=== PATIENT | male | born 1990 | race Caucasian/White ===

== ENCOUNTER → 2019-10-07 07:36 | Outpatient (BNVA) | payer MEDICAID, SELFPAY | PROVIDERS: Family Provider Nurse Practitioner Family; PCP Nurse Practitioner Family; Visit Provider Nurse Practitioner | DX: F43.12 Post-traumatic stress disorder, chronic (principal); G71.11 Myotonic muscular dystrophy; Q99.2 Fragile X chromosome; F70 Mild intellectual disabilities; F79 Unspecified intellectual disabilities; E55.9 Vitamin D deficiency, unspecified | CPT/HCPCS: 69210; 80053; 80061; 81000; 82306; 85025; 99213 ==

== ENCOUNTER → 2020-03-17 07:24 | Outpatient (BNVA) | payer MEDICAID, SELFPAY | PROVIDERS: Family Provider Nurse Practitioner Family; PCP Nurse Practitioner Family; Visit Provider Psychiatry & Neurology Psychiatry | DX: F43.12 Post-traumatic stress disorder, chronic (principal); F90.9 Attention-deficit hyperactivity disorder, unspecified type; F79 Unspecified intellectual disabilities; Q99.2 Fragile X chromosome | CPT/HCPCS: 99213 ==

== ENCOUNTER → 2020-08-03 07:39 | Outpatient (BNVA) | payer MEDICAID, SELFPAY | PROVIDERS: Family Provider Nurse Practitioner Family; PCP Nurse Practitioner Family; Visit Provider Nurse Practitioner | DX: F43.12 Post-traumatic stress disorder, chronic (principal); F70 Mild intellectual disabilities; F90.9 Attention-deficit hyperactivity disorder, unspecified type; Z79.899 Other long term (current) drug therapy | CPT/HCPCS: 99214 ==

== ENCOUNTER → 2020-09-26 10:55 | Outpatient (BNVA) | payer MEDICAID, SELFPAY | PROVIDERS: Family Provider Nurse Practitioner Family; PCP Nurse Practitioner; Visit Provider Nurse Practitioner | DX: J18.9 Pneumonia, unspecified organism (principal) | CPT/HCPCS: 71046 ==

== ENCOUNTER 2020-09-26 12:48 | Inpatient (IN) | payer MEDICAID, SELFPAY ==
[2020-09-26] VITALS (96 sets, daily range): BP systolic 102–134; BP diastolic 66–87; PULSE 88–132; RESP 16–38; TEMP 37.6–38; O2SAT 93–100; BMI 21.6
--- NOTE | 2020-09-26 12:55 | ECG_ITS ---
[facility] Test Date: 2020-09-26 Pat Name: Williams Dior Department: Room: Gender: Male Stamper Blocker: : 1990 Requested By: Dano Savage Order Number: [id number] Lionel MD: Konstantin Roblero M.D. Measurements Intervals [place] Rate: 122 P: 68 OR: 182 QRS: -48 QRSD: 130 T: 63 QT: 315 QTc: 449 Interpretive Statements SINUS TACHYCARDIA POSSIBLE RIGHT VENTRICULAR CONDUCTION DELAY [RSR (QR) IN V1/V2] LEFT ANTERIOR FASCICULAR BLOCK [QRS AXIS <= -45, QR IN I, RS IN II] ST ELEVATION CONSISTENT WITH INJURY, PERICARDITIS, OR EARLY REPOLARIZATION [ST ELEVATION W/O NORMALLY INFLECTED T WAVE] MODERATE ST DEPRESSION [0.05+ mV ST DEPRESSION] No previous ECG available for comparison Electronically Signed On 09-27-2020 0:43:17 CDT by Konstantin Roblero M.D. [id number] f
--- NOTE | 2020-09-26 13:02 | XRR_ITS ---
PROCEDURE INFORMATION: Exam: XR Chest Exam date and time: 09/26/2020 1:18 PM Age: 29 years old Clinical indication: Cough and dyspnea; Additional info: Dyspnea/cough TECHNIQUE: Imaging protocol: XR of the chest. Views: 1 view. COMPARISON: CR XR chest 2V* [id number] 09/26/2020 10:55 AM FINDINGS: Lungs: There is left basilar consolidation consistent with lower lobe pneumonia. This is more prominent than on previous study. The right lung is clear. Pleural spaces: Unremarkable. No pleural effusion. No pneumothorax. Heart/Mediastinum: Unremarkable. No cardiomegaly. Bones/joints: Unremarkable. XR/XR chest 1V portable [id number] IMPRESSION: Increasing prominence of a left lower lobe pneumonia.
--- NOTE | 2020-09-26 13:04 | ED_ITS ---
HPI - SOB/Dyspnea General: Chief Complaint: Shortness of Breath/Dyspnea Stated Complaint: RESP DISTRESS Time Seen by Provider: 09/26/20 12:52 History of Present Illness: HPI Narrative: 29-year-old male presents to the emergency room complaining of shortness of breath with hypoxia. He has significant developmental delays and an ILS home. When EMS encountered him initially at the clinic he was 80% on room air with supplemental oxygen he was in the 90s on 10 L by nonrebreather. On arrival here he seemed to have improved some. There is no report of fever patient is nonverbal a significant intellectual disability. He has received a single Covid shot in August. He was not known to previously have Covid. MD elicited complaint: shortness of breath and cough Pertinent past history: other (Developmental delay, Fragile X) Onset (ago): hour(s) Timing: constant Severity: severe Relieving factors: oxygen Associated symptoms: Reports chest congestion, cough and fever(s); Deny abdominal pain, chest pain, hemoptysis, nausea, orthopnea or vomiting Treatment prior to arrival: oxygen Review of Systems General: Reports: ROS unobtainable due to mental status Const: Reports: fever(s) ENMT: Denies: throat pain, ear or mastoid pain, nasal discharge or nasal congestion Card: Denies: chest pain, edema, dyspnea on exertion or orthopnea Resp: Reports: chest congestion; Denies: hemoptysis GI: Denies: abdominal pain, nausea, vomiting, hematemesis, coffee ground emesis, diarrhea, constipation, bloating, hematochezia or melena : Denies: flank pain, dysuria, urinary frequency or urinary urgency Skin/Breast: Denies: rash or pruritus PFSH ED PFSH: Medical History Acquired intellectual disability ADHD (attention deficit hyperactivity disorder) Bed wetting 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 On combination antipsychotic drug therapy Post-traumatic stress disorder, chronic Vitamin D deficiency Surgical History History of toe surgery Left great toe Family History Unknown Unknown family medical history Family history unknown by caregiver Social History Smoking and tobacco status: never smoked Second hand smoke exposure: No Smoking risk assessment/counseling performed?: No Alcohol intake: never Desire information about alcohol rehabilitation?: No Counseling given: No Desire information about substance/drug rehabilitation?: No Counseling given: No Adopted: No Caregiver/support person: Yes Lives independently: No Household members: caregiver Housing: House Marital status: Single Number of children: 0 Number of grandchildren: 0 Highest education level completed: High School Graduate service: No Current occupational status: disabled Current occupational exposures/hazards: No Pets and animals: Yes Pets & animals: dog(s) History of recent travel: No Leisure activites: sports, art, music, games, fishing and volunteer work Sexually active: No Current gender identity: Male Special imer needs: No Financial difficulty paying for basics: Not Very Hard Physical Exam Const: COMMON NORMALS: no acute distress GENERAL APPEARANCE: cooperative and comfortable HENMT: COMMON NORMALS: normocephalic, atraumatic and hearing grossly normal bi laterally HEAD & SCALP: normocephalic and atraumatic Neck/C-Spine: COMMON NORMALS: no JVD Resp: EFFORT & INSPECTION: Yes tachypneic AUSCULTATION: rhonchi and wheezes Cardio: COMMON NORMALS: no JVD, regular rate, regular rhythm and No murmurs present (Cardio) RATE: regular rate RHYTHM: regular rhythm GI: COMMON NORMALS: Soft to palpation and No hepatosplenomegaly present AUSCULTATION: Yes normoactive bowel sounds PALPATION: Yes Soft to palpation, No Tenderness to palpation present (GI), No Guarding due to palpation present (GI) and Yes No hepatosplenomegaly present Extremity: COMMON NORMALS: normal to inspection, capillary refill normal, no clubbing, cyanosis or edema, no calf tenderness and no pedal edema Skin: COMMON NORMALS: no rashes or lesions noted GENERAL SKIN EXAM: no rashes or lesions noted Course Vital Signs: Vital signs: Vital Signs Temperature 99.6 F 09/29/20 04:05 Pulse Rate 94 09/29/20 04:05 Respiratory Rate 20 H 09/29/20 04:05 Blood Pressure 131/75 09/29/20 04:05 Pulse Oximetry 92 09/29/20 04:05 MDM - SOB/Dyspnea Lab Data: Labs: Lab Results 09/26/20 09/26/20 09/26/20 Range/Units 12:40 13:35 13:35 WBC 9.5 (4.0-10.0) 10^3/ uL RBC 4.59 (4.1-5.3) 10^6/u L Hgb 14.2 (11.7-16.6) g/dL Hct 44.7 (42.0-52.0) % MCV 97.4 H (80-94) fL MCH 30.9 (28.0-34.0) pg MCHC 31.8 (30.0-36.0) g/dL RDW 13.2 (12.1-15.1) % Plt Count 155 (130-400) 10^3/c mm MPV 10.5 H (7.4-10.4) fL Neut % (Auto) 88.9 % Lymph % (Auto) 4.5 % Harnett % (Auto) 6.0 % Eos % (Auto) 0.0 % Baso % (Auto) 0.2 % Neut # (Auto) 8.44 H (1.8-7.7) 10^3/u L Lymph # (Auto) 0.4 L (0.8-4.8) 10^3/u L Harnett # (Auto) 0.6 (0.2-0.9) 10^3/u L Eos # (Auto) 0.0 (0.0-0.8) 10^3/u L Baso # (Auto) 0.0 (0.0-0.1) 10^3/u L Nucleated RBC % (a uto) 0 % Nucleated RBCs # 0.0 /100WBC Specimen Type Arterial Sample Site Radial, left ABG pH 7.39 (7.35-7.45) ABG pCO2 47.0 H (35-45) mmHg ABG pO2 64.1 L (80.0-100.0) mmH g ABG HCO3 28.3 H (22-26) mmol/L ABG O2 Saturation 93.7 ABG Base Excess 2.5 H (-2.0-2.0) mmol/ L Rangel Test Pos A-a O2 Gradient 3.6 L (5-10) mmHg Hematocrit 45.2 (42-52) % Hgb O2 Saturation 92.4 L (95-100) % Carboxyhemoglobin 0.8 (0.4-20.1) %THgb Methemoglobin 0.6 (0.4-1.5) % Total Hemoglobin 14.7 (14-18) g/dL Sodium 150.0 H (131-143) mmol/L Potassium 3.7 (3.5-5.0) mmol/L Glucose 102.0 (70-115) mg/dL Ionized Calcium 1.1 (1.1-1.4) mmol/L O2 Delivery Device Nrb O2 Liters/Min 12.0 % Basketball Scout ID Gd Chloride (98-107) mmol/L Carbon Dioxide (22-29) mmol/L Anion Gap (5-19) BUN (6-20) mg/dL Creatinine (0.7-1.2) mg/dL GFR Calculation (90-130) mL/min Estimat Average Gl ucose Hemoglobin A1c (4.0-6.0) % Calculated Osmolal ity (285-295) mOsm/k g Lactic Acid 1.0 (0.5-2.2) mmol/L Calcium (8.5-10.5) mg/dL Magnesium (1.7-2.3) mg/dL Total Bilirubin (0.15-1.2) mg/dL AST (0-40) U/L ALT (0-41) U/L Alkaline Phosphata se (40-130) IU/L Creatine Kinase (39-308) U/L C-Reactive Protein (0.0-4.9) mg/L NT-Pro-B Natriuret Pep (0-125) pg/mL Total Protein (6.6-8.7) g/dL Albumin (3.5-5.2) g/dL Globulin (1.3-4.6) g/dL Lipase (13-60) U/L Procalcitonin (0-0.5) ng/mL TSH (0.27-4.20) uIU/ mL SARS-CoV-2 Ag (Rap id) (Negative) 09/26/20 09/26/20 09/26/20 Range/Units 13:35 13:35 13:35 WBC (4.0-10.0) 10^3/ uL RBC (4.1-5.3) 10^6/u L Hgb (11.7-16.6) g/dL Hct (42.0-52.0) % MCV (80-94) fL MCH (28.0-34.0) pg MCHC (30.0-36.0) g/dL RDW (12.1-15.1) % Plt Count (130-400) 10^3/c mm MPV (7.4-10.4) fL Neut % (Auto) % Lymph % (Auto) % Harnett % (Auto) % Eos % (Auto) % Baso % (Auto) % Neut # (Auto) (1.8-7.7) 10^3/u L Lymph # (Auto) (0.8-4.8) 10^3/u L Harnett # (Auto) (0.2-0.9) 10^3/u L Eos # (Auto) (0.0-0.8) 10^3/u L Baso # (Auto) (0.0-0.1) 10^3/u L Nucleated RBC % (a uto) % Nucleated RBCs # /100WBC Specimen Type Sample Site ABG pH (7.35-7.45) ABG pCO2 (35-45) mmHg ABG pO2 (80.0-100.0) mmH g ABG HCO3 (22-26) mmol/L ABG O2 Saturation ABG Base Excess (-2.0-2.0) mmol/ L Rangel Test A-a O2 Gradient (5-10) mmHg Hematocrit (42-52) % Hgb O2 Saturation (95-100) % Carboxyhemoglobin (0.4-20.1) %THgb Methemoglobin (0.4-1.5) % Total Hemoglobin (14-18) g/dL Sodium 145 (131-143) mmol/L Potassium 3.6 (3.5-5.0) mmol/L Glucose 102 (70-115) mg/dL Ionized Calcium (1.1-1.4) mmol/L O2 Delivery Device O2 Liters/Min % Basketball Scout ID Chloride 110 H (98-107) mmol/L Carbon Dioxide 26 (22-29) mmol/L Anion Gap 12.6 (5-19) BUN 17 (6-20) mg/dL Creatinine 0.5 L (0.7-1.2) mg/dL GFR Calculation 198.0 H (90-130) mL/min Estimat Average Gl ucose Hemoglobin A1c (4.0-6.0) % Calculated Osmolal ity 302 H (285-295) mOsm/k g Lactic Acid (0.5-2.2) mmol/L Calcium 8.3 L (8.5-10.5) mg/dL Magnesium 2.2 (1.7-2.3) mg/dL Total Bilirubin 0.6 (0.15-1.2) mg/dL AST 27 (0-40) U/L ALT 18 (0-41) U/L Alkaline Phosphata se 73 (40-130) IU/L Creatine Kinase 317 H (39-308) U/L C-Reactive Protein (0.0-4.9) mg/L NT-Pro-B Natriuret Pep 140 H (0-125) pg/mL Total Protein 6.8 (6.6-8.7) g/dL Albumin 4.2 (3.5-5.2) g/dL Globulin 2.6 (1.3-4.6) g/dL Lipase 8 L (13-60) U/L Procalcitonin (0-0.5) ng/mL TSH (0.27-4.20) uIU/ mL SARS-CoV-2 Ag (Rap id) Negative (Negative) 09/26/20 09/26/20 Range/Units 13:35 13:35 WBC (4.0-10.0) 10^3/ uL RBC (4.1-5.3) 10^6/u L Hgb (11.7-16.6) g/dL Hct (42.0-52.0) % MCV (80-94) fL MCH (28.0-34.0) pg MCHC (30.0-36.0) g/dL RDW (12.1-15.1) % Plt Count (130-400) 10^3/c mm MPV (7.4-10.4) fL Neut % (Auto) % Lymph % (Auto) % Harnett % (Auto) % Eos % (Auto) % Baso % (Auto) % Neut # (Auto) (1.8-7.7) 10^3/u L Lymph # (Auto) (0.8-4.8) 10^3/u L Harnett # (Auto) (0.2-0.9) 10^3/u L Eos # (Auto) (0.0-0.8) 10^3/u L Baso # (Auto) (0.0-0.1) 10^3/u L Nucleated RBC % (a uto) % Nucleated RBCs # /100WBC Specimen Type Sample Site ABG pH (7.35-7.45) ABG pCO2 (35-45) mmHg ABG pO2 (80.0-100.0) mmH g ABG HCO3 (22-26) mmol/L ABG O2 Saturation ABG Base Excess (-2.0-2.0) mmol/ L Rangel Test A-a O2 Gradient (5-10) mmHg Hematocrit (42-52) % Hgb O2 Saturation (95-100) % Carboxyhemoglobin (0.4-20.1) %THgb Methemoglobin (0.4-1.5) % Total Hemoglobin (14-18) g/dL Sodium (131-143) mmol/L Potassium (3.5-5.0) mmol/L Glucose (70-115) mg/dL Ionized Calcium (1.1-1.4) mmol/L O2 Delivery Device O2 Liters/Min % Basketball Scout ID Chloride (98-107) mmol/L Carbon Dioxide (22-29) mmol/L Anion Gap (5-19) BUN (6-20) mg/dL Creatinine (0.7-1.2) mg/dL GFR Calculation (90-130) mL/min Estimat Average Gl ucose 94 Hemoglobin A1c 4.9 (4.0-6.0) % Calculated Osmolal ity (285-295) mOsm/k g Lactic Acid (0.5-2.2) mmol/L Calcium (8.5-10.5) mg/dL Magnesium (1.7-2.3) mg/dL Total Bilirubin (0.15-1.2) mg/dL AST (0-40) U/L ALT (0-41) U/L Alkaline Phosphata se (40-130) IU/L Creatine Kinase (39-308) U/L C-Reactive Protein 84.6 H (0.0-4.9) mg/L NT-Pro-B Natriuret Pep (0-125) pg/mL Total Protein (6.6-8.7) g/dL Albumin (3.5-5.2) g/dL Globulin (1.3-4.6) g/dL Lipase (13-60) U/L Procalcitonin 0.15 (0-0.5) ng/mL TSH 0.73 (0.27-4.20) uIU/ mL SARS-CoV-2 Ag (Rap id) (Negative) Discharge Plan Discharge Patient Disposition: Admitted As Inpatient Admit Provider: Deejay Champagne Clinical Impression: LLL pneumonia, Sepsis, Mild intellectual disabilities Condition: Stable Coding Level of Care Code ED Glass Products Inspector for Chg Fwd Exam Comprehensive
[2020-09-26 13:13] LABS: ABG PH Result 7.39 (7.35-7.45); Alveolar-Arterial Oxygen Gradi 3.6 mmHg (5-10); Arterial Blood Gas Hematocrit 45.2 % (42-52); Base Excess ABG 2.5 mmol/L (-2.0-2.0); Blood Gas Allen Test Pos; Blood Gas Operator Identificat GD; Blood Gas Sample Site Radial, left; Blood Gas Sample Type Arterial; Carboxyhemoglobin 0.8 %THgb (0.4-20.1); HCO3 ABG 28.3 mmol/L (22-26); HGB O2 Sat 92.4 % (95-100); Ionized Calcium Level - ABG 1.1 mmol/L (1.1-1.4); Methemoglobin 0.6 % (0.4-1.5); Oxygen Device NRB; Oxygen Saturation ABG 93.7; PO2 ABG 64.1 mmHg (80.0-100.0); Potassium Level - ABG 3.7 mmol/L (3.5-5.0); Total Hemoglobin 14.7 g/dL (14-18)
[2020-09-26 14:02] LABS: Basophils % 0.2 %; Hematocrit 44.7 % (42.0-52.0); Hemoglobin 14.2 g/dL (11.7-16.6); Lymphocytes # 0.4 10^3/uL (0.8-4.8); Lymphocytes % 4.5 %; Mean Corpuscular HGB Conc 31.8 g/dL (30.0-36.0); Mean Corpuscular Hemoglobin 30.9 pg (28.0-34.0); Mean Corpuscular Volume 97.4 fL (80-94); Mean Platelet Volume 10.5 fL (7.4-10.4); Monocytes # 0.6 10^3/uL (0.2-0.9); Neutrophils # 8.44 10^3/uL (1.8-7.7); Neutrophils % 88.9 %; Nucleated Red Blood Cells % 0 %; Platelet Count 155 10^3/cmm (130-400); Red Blood Count 4.59 10^6/uL (4.1-5.3); Red Cell Distribution Width 13.2 % (12.1-15.1); White Blood Count 9.5 10^3/uL (4.0-10.0)
[2020-09-26 14:18] LABS: Alanine Aminotransferase 18 U/L (0-41); Albumin Level 4.2 g/dL (3.5-5.2); Alkaline Phosphatase 73 IU/L (40-130); Anion Gap 12.6 (5-19); Aspartate Amino Transferase 27 U/L (0-40); Blood Urea Nitrogen 17 mg/dL (6-20); Calcium 8.3 mg/dL (8.5-10.5); Carbon Dioxide 26 mmol/L (22-29); Chloride 110 mmol/L (98-107); Creatine Phosphokinase 317 U/L (39-308); Globulin 2.6 g/dL (1.3-4.6); Glucose 102 mg/dL (65-115); Lipase 8 U/L (13-60); Magnesium 2.2 mg/dL (1.7-2.3); Osmolality Calculated 302 mOsm/kg (285-295); Potassium 3.6 mmol/L (3.5-5.1); Sodium 145 mmol/L (136-145); Total Bilirubin 0.6 mg/dL (0.15-1.2); Total Protein 6.8 g/dL (6.6-8.7)
[2020-09-26 14:41] LABS: SARS Covid-2 Antigen Negative (Negative)
[2020-09-26] MEDS: levofloxacin-dextrose 5 % 750 MG/150 ML PREMIX 100 MG IV (14:42)
[2020-09-26] MEDS: sodium chloride 0.9% 1,769.01 ML 1769 ML IV (14:42)
--- NOTE | 2020-09-26 15:28 | CTR_ITS ---
PROCEDURE INFORMATION: Exam: CT Chest Without Contrast; Diagnostic Exam date and time: 09/26/2020 3:56 PM Age: 29 years old Clinical indication: Abdominal tenderness; Abdominal pain; Cough and dyspnea; Chest pressure; Additional info: Lll pna, R flank pain TECHNIQUE: Imaging protocol: Diagnostic computed tomography of the chest without contrast. Radiation optimization: All CT scans at this facility use at least one of these dose optimization techniques: automated exposure control; mA and/or kV adjustment per patient size (includes targeted exams where dose is matched to clinical indication); or iterative reconstruction. COMPARISON: No relevant prior studies available. RADIATION DOSE METRICS: Total DLP (mGy-cm): 1356.57 FINDINGS: Lungs: Small patchy opacities are seen in the left upper, and right middle and lower lobes. The left lower lobe is either completely atelectatic or consolidated. The left lower lobe bronchi are not seen, likely occluded by secretions. Pleural spaces: A small left pleural effusion is present. No pneumothorax. Heart: The heart is normal in size. Aorta: Unremarkable. No aortic aneurysm. Lymph nodes: Unremarkable. No enlarged lymph nodes. Bones/joints: Unremarkable. No acute fracture. Soft tissues: Unremarkable. IMPRESSION: Multilobar pneumonia. Complete atelectasis versus consolidation of the left lower lobe. PROCEDURE INFORMATION: Exam: CT Abdomen And Pelvis Without Contrast Exam date and time: 09/26/2020 3:56 PM Age: 29 years old Clinical indication: Abdominal tenderness; Abdominal pain; Cough and dyspnea; Chest pressure; Additional info: Lll pna, R flank pain TECHNIQUE: Imaging protocol: Computed tomography of the abdomen and pelvis without contrast. Radiation optimization: All CT scans at this facility use at least one of these dose optimization techniques: automated exposure control; mA and/or kV adjustment per patient size (includes targeted exams where dose is matched to clinical indication); or iterative reconstruction. COMPARISON: No relevant prior studies available. RADIATION DOSE METRICS: Total DLP (mGy-cm): 1356.57 FINDINGS: Liver: Normal. No mass. Gallbladder and bile ducts: Normal. No calcified stones. No ductal dilation. Pancreas: Normal. No ductal dilation. Spleen: Normal. No splenomegaly. Adrenal glands: Normal. No mass. Kidneys and ureters: Normal. No hydronephrosis. Stomach and bowel: The rectosigmoid colon is moderately distended with stool. No intestinal obstruction. Appendix: The appendix is normal. Intraperitoneal space: Unremarkable. No free air. No significant fluid collection. Vasculature: Unremarkable. No abdominal aortic aneurysm. Lymph nodes: Unremarkable. No enlarged lymph nodes. Urinary bladder: Mild urinary bladder wall thickening is appreciated. Reproductive: Unremarkable as visualized. Bones/joints: Unremarkable. No acute fracture. Soft tissues: Unremarkable. CT/CT chest abd pel wo con IMPRESSION: 1. Mild cystitis, correlate with urinalysis. No renal stone is visualized. 2. Possible rectal fecal impaction. Radiation Dose CTDIVOL = (mGy): DLP = 1356.57~1356.57 (mGy-cm)
--- NOTE | 2020-09-26 15:31 | P.HP_ITS ---
Providers/Chief Complaint Admitting Physician: Deejay Champagne MD Primary Care Provider: Kana Mora, CORRECTIONS CASEWORKER-C Chief Complaint: RESP DISTRESS History of Present Illness Williams Dior is a 29 year old male Fragile X syndrome, intellectual disability, ADHD, who presents to [facility] due to concerns for hypoxia, cough, fevers, shortness of breath. Most of the history was obtained by patient's caregiver, caregiver tells me that patient does not really complain a lot of pain, or have any particular complaints, he has had multiple bouts of pneumonia in the past, he received a pneumonia booster about 5 years ago so has not had pneumonia about 5 years, he did receive his first Covid vaccine dose about a month ago, this morning he just was not feeling well, complaining of some right flank pain, so his primary caregiver took him to the doctor's office more for his prephysical for his camp in November, where they found him to be hypoxic, requiring oxygen, he had fevers, he looked tachypneic, so they advised him to come to the emergency room. In the emergency room, patient complains of a cough, complains of fevers, complains of shortness of breath, has some complai nts of right flank pain, has no other complaints, he is a bit pale, respiratory rate between 20-30, heart rates are in the 110s, sinus tachycardia, blood pressures 130s over 80s, receiving a sepsis bolus, receiving Levaquin, he sitting up in bed, following commands, requiring 15 L nonrebreather, no belly breathing, no intercostal subcostal retractions, no evidence of respiratory distress, work-up in ER showed left lower lobe pneumonia, with sepsis, hospitalist team was called for admission. Review of Systems Const: Reports: fever(s); Denies: chills ENMT: Denies: throat pain Card: Denies: chest pain Resp: Reports: dyspnea and non-productive cough; Denies: productive cough or wheezing GI: Denies: abdominal pain, nausea or vomiting : Reports: flank pain; Denies: difficulty urinating, dysuria or urinary frequency Musc: Reports: back pain Skin/Breast: Denies: rash Neuro: Denies: headache(s) Psych: Reports: panic attacks Endo: Denies: polyuria Medications/Allergies Home Medications Medication Instructions Recorded Confirmed Last Taken Type sennosides 8.6 mg-docusate sodium 2 tab-cap PO BID PRN #60 tab 03/24/20 09/26/20 Unknown Rx 50 mg tablet Milk of Magnesia 30 ml PO BID@0800,1999 PRN 09/26/20 09/26/20 Unknown History Miralax 17 g PO DAILY@0800 09/26/20 09/26/20 09/26/20 History Seroquel 200 mg PO BID@08,199909/26/20 09/26/20 09/26/20 History Tums [place] 400 mg PO DAILY@0800 09/26/20 09/26/20 09/26/20 History Vitamin D3 1,000 unit PO DAILY@0800 09/26/20 09/26/20 09/26/20 History multivitamin 1 tab PO DAILY@0800 09/26/20 09/26/20 09/26/20 History Allergies Allergy/AdvReac Type Severity Reaction Status Date / Time No Known Allergies Allergy Unverified 07/29/19 16:48 PFSH Acute PFSH: Medical History Acquired intellectual disability ADHD (attention deficit hyperactivity disorder) Bed wetting 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 On combination antipsychotic drug therapy Post-traumatic stress disorder, chronic Vitamin D deficiency Surgical History History of toe surgery Left great toe Family History Unknown Unknown family medical history Family history unknown by caregiver Social History Smoking and tobacco status: never smoked Second hand smoke exposure: No Smoking risk assessment/counseling performed?: No Alcohol intake: never Desire information about alcohol rehabilitation?: No Counseling given: No Desire information about substance/drug rehabilitation?: No Counseling given: No Adopted: No Caregiver/support person: Yes Lives independently: No Household members: caregiver Housing: House Marital status: Single Number of children: 0 Number of grandchildren: 0 Highest education level completed: High School Graduate service: No Current occupational status: disabled Current occupational exposures/hazards: No Pets and animals: Yes Pets & animals: dog(s) History of recent travel: No Leisure activites: sports, art, music, games, fishing and volunteer work Sexually active: No Current gender identity: Male Special imer needs: No Financial difficulty paying for basics: Not Very Hard Vitals/I&O/Wt Last Vital Signs Temp 100.4 F H 09/26/20 12:50 Pulse 125 H 09/26/20 14:33 Resp 30 H 09/26/20 14:33 BP 134/87 09/26/20 14:33 Pulse Ox 100 09/26/20 14:33 Weight last 48 hrs Weight 58.967 kg Physical Exam Const: COMMON NORMALS: no acute distress GENERAL APPEARANCE: cooperative a nd ill appearing ORIENTATION/CONSCIOUSNESS: Yes awake, Yes oriented to person and Yes oriented to place; not oriented to time Resp: COMMON NORMALS: normal respiratory effort, No retractions and No use of accessory muscles AUSCULTATION: diminished lung sounds on the left Cardio: COMMON NORMALS: no JVD RATE: tachycardic HEART SOUNDS: S1 normal heart sound present, S2 normal heart sound present and no murmurs GI: COMMON NORMALS: Normal to inspection, nondistended, normoactive bowel sounds present, Soft to palpation, non-tender and No hepatosplenomegaly present : COMMON NORMALS: Yes no CVA tenderness Extremity: COMMON NORMALS: normal to inspection and no pedal edema Neuro: COMMON NORMALS: CN's II-XII intact bilaterally, moves all extremities and no focal motor deficits Psych: ACTIVITY/MOTOR BEHAVIOR: Yes Avoids eye contact (attititude/behavior) ATTENTION/CONCENTRATION: Yes attention grossly intact Sepsis: Is patient septic: Yes Focused sepsis exam performed: Yes Date exam was performed: 09/26/20 Time exam was performed: 15:00 Data : 09/26/20 13:35 09/26/20 13:35 Micro: Microbiology 09/26/20 14:05 Blood Culture - Preliminary Blood SPECIMEN COLLECTED 09/26/20 13:35 Blood Culture - Preliminary Blood SPECIMEN COLLECTED A&P Assessment and plan (1) Acute respiratory failure with hypoxia: -secondary to LLL PNA with sepsis -HR 125, RR 30, temp 100, on 13L nonrebreather, Bp 100's over 60 -LA 1.0, WBC 9.5, cxray LLL infiltrate PLAN: -admit to ICU -receiving sepsis bolus, Levaquin -start broadspectrum antibiotics vancomycin and zosyn -Blood cultures, urine cultures, UA, sputum cultures, urine bacterial antigen -Continue IV hydration -Rapid Covid negative, order flu swab -Covid PCR ordered -Dysphagia diet as there is concern for possible aspiration -Monitor respiratory status closely -BiPAP as needed for shortness of breath -Nebulizer treatments -Full code -Lovenox for DVT prophylaxis Status: Acute (2) Fragile x chromosome: Status: Acute (3) Mild intellectual disabilities: Status: Chronic (4) ADHD (attention deficit hyperactivity disorder): Status: Chronic (5) Sepsis: Status: Acute (6) LLL pneumonia: Status: Acute Attestations Medical Necessity Statement*: Patient requires hospitalization, inpatient, greater than 2 minutes, for acute hypoxic respiratory failure secondary to left lower pneumonia, requiring ICU admission due to high oxygen requirements, sepsis, and increased care as patient has intellectual disability and Fragile X Coding Level of Care Code Acute Assistant Teacher Primary for g Fwd Exam Comprehensive Diagnoses Acute respiratory failure with hypoxia J96.01 Fragile x chromosome Q99.2 Mild intellectual disabilities F70 ADHD (attention deficit hyperactivity disorder) F90.9 Sepsis A41.9 LLL pneumonia J18.9 Sepsis Event Note Evaluation Current stage of sepsis: sepsis Possible source: pulmonary Focused Exam Vital Signs Temp Pulse Pulse Resp BP BP Pulse Ox 09/26/20 14:33 125 H 30 H 134/87 100 09/26/20 13:02 122 H 09/26/20 12:50 100.4 F H 129 H 26 H 106/79 95 Respiratory exam: Present decreased breath sounds Cardiovascular exam: Present tachycardia Capillary refill: < 3 Seconds Peripheral pulse strength: 3+ Normal Peripheral pulse location: Pedal Skin exam: pale Date exam was performed: 09/26/20 Time exam was performed: 15:40 Problem List (1) Fragile x chromosome: Status: Acute (2) Mild intellectual disabilities: Status: Chronic (3) ADHD (attention deficit hyperactivity disorder): Status: Chronic (4) Sepsis: Status: Acute (5) LLL pneumonia: Status: Acute (6) Acute respiratory failure with hypoxia: Status: Acute
[2020-09-26 16:29] LABS: NT Pro B Type Natriuretic Pept 140 pg/mL (0-125)
[2020-09-26 16:45] LABS: Procalcitonin 0.15 ng/mL (0-0.5); Thyroid Stimulating Hormone 0.73 uIU/mL (0.27-4.20)
[2020-09-26 16:56] LABS: C Reactive Protein 84.6 mg/L (0.0-4.9)
[2020-09-26] MEDS: famotidine 20 mg/2 mL INJ IVP (18:05)
[2020-09-26] MEDS: enoxaparin 40 mg/0.4 mL Syringe SUBCUT (18:06)
[2020-09-26] MEDS: vancomycin 750 MG in sodium chloride 0.9% 250 ML 250 MG IV (18:07)
[2020-09-26] MEDS: piperacillin-tazobactam 3.375 GM in sodium chloride 0.9% (plus) 50 ML IV (18:07)
--- NOTE | 2020-09-26 18:26 | PC.NURSE ---
Patient was brought to ICU from ER via bed on 12 L oxymask. Temperature was noted at 99.6. Patient is able to comunicate by sentences of about 3 words and is able to communicate discomforts and needs.
--- NOTE | 2020-09-26 18:41 | PC.NURSE ---
IV fluids running per orders. Previous bag from ER still running. Will Tell next shift to scan new bag when needed.
[2020-09-26] MEDS: docusate sodium 100 mg Capsule PO (19:09)
[2020-09-26] MEDS: polyethylene glycol 3350 Pkt 17 gm PO (19:09)
[2020-09-26] MEDS: quetiapine 100 mg Tablet 200 MG PO (19:09)
[2020-09-26] MEDS: sodium chloride 0.9% 1,000 ML 75 ML IV (19:12)
[2020-09-26] MEDS: acetaminophen 325 mg Tablet 650 MG PO (20:07)
[2020-09-26 21:33] LABS: Estmated Average Glucose 94; Hemoglobin A1C 4.9 % (4.0-6.0)
[2020-09-26 21:42] LABS: Influenza A by IFA Negative (Negative); Influenza B by IFA Negative (Negative)
[2020-09-27] VITALS (97 sets, daily range): BP systolic 91–115; BP diastolic 62–78; PULSE 87–124; RESP 16–31; TEMP 36.7–37.9; O2SAT 92–100
[2020-09-27] MEDS: vancomycin 750 MG in sodium chloride 0.9% 250 ML 250 MG IV ×2 (00:06→09:08)
[2020-09-27] MEDS: piperacillin-tazobactam 3.375 GM in sodium chloride 0.9% (plus) 50 ML IV ×3 (01:10→17:15)
[2020-09-27] MEDS: famotidine 20 mg/2 mL INJ IVP ×2 (04:01→15:41)
[2020-09-27 04:43] LABS: Basophils % 0.4 %; Eosinophils % 0.1 %; Hematocrit 36.7 % (42.0-52.0); Hemoglobin 11.5 g/dL (11.7-16.6); Lymphocytes # 0.7 10^3/uL (0.8-4.8); Lymphocytes % 6.2 %; Mean Corpuscular HGB Conc 31.3 g/dL (30.0-36.0); Mean Corpuscular Hemoglobin 31.2 pg (28.0-34.0); Mean Corpuscular Volume 99.5 fL (80-94); Mean Platelet Volume 10.9 fL (7.4-10.4); Monocytes # 0.6 10^3/uL (0.2-0.9); Monocytes % 5.5 %; Neutrophils # 9.39 10^3/uL (1.8-7.7); Neutrophils % 87.5 %; Nucleated Red Blood Cells % 0 %; Platelet Count 113 10^3/cmm (130-400); Red Blood Count 3.69 10^6/uL (4.1-5.3); Red Cell Distribution Width 13.4 % (12.1-15.1); White Blood Count 10.7 10^3/uL (4.0-10.0)
[2020-09-27 04:58] LABS: ABG PCO2 51.5 mmHg (35-45); ABG PH Result 7.34 (7.35-7.45); Arterial Blood Gas Hematocrit 37.2 % (42-52); Base Excess ABG 1.1 mmol/L (-2.0-2.0); Blood Gas Sample Site Brachial, left; Blood Gas Sample Type Arterial; HCO3 ABG 27.7 mmol/L (22-26); Oxygen Device NC; PO2 ABG 76.1 mmHg (80.0-100.0)
[2020-09-27 04:58] LABS: Lactate (Lactic Acid level) 0.6 mmol/L (0.5-2.2)
[2020-09-27 04:59] LABS: Alanine Aminotransferase 12 U/L (0-41); Alkaline Phosphatase 62 IU/L (40-130); Aspartate Amino Transferase 19 U/L (0-40); Chloride 112 mmol/L (98-107); Glucose 87 mg/dL (65-115); Potassium 3.6 mmol/L (3.5-5.1); Sodium 145 mmol/L (136-145)
[2020-09-27 05:00] LABS: C Reactive Protein 142.3 mg/L (0.0-4.9); Magnesium 1.9 mg/dL (1.7-2.3); Phosphorus 1.6 mg/dL (2.5-4.5)
[2020-09-27 05:04] LABS: Procalcitonin 0.19 ng/mL (0-0.5)
[2020-09-27 05:15] LABS: Creatine Phosphokinase 190 U/L (39-308); Ferritin 275 ng/mL (30-400)
[2020-09-27 05:31] LABS: Anion Gap 11.6 (5-19); Blood Urea Nitrogen 11 mg/dL (6-20); Calcium 7.5 mg/dL (8.5-10.5); Carbon Dioxide 25 mmol/L (22-29); Globulin 2.4 g/dL (1.3-4.6); Osmolality Calculated 299 mOsm/kg (285-295); Total Bilirubin 0.5 mg/dL (0.15-1.2); Total Protein 5.4 g/dL (6.6-8.7)
[2020-09-27] MEDS: sodium chloride 0.9% 1,000 ML 75 ML IV (06:22)
[2020-09-27] MEDS: phosphorus 250 mg Tablet PO ×2 (09:10→17:15)
[2020-09-27] MEDS: polyethylene glycol 3350 Pkt 17 gm PO (09:10)
[2020-09-27] MEDS: docusate sodium 100 mg Capsule PO ×2 (09:10→17:15)
[2020-09-27] MEDS: quetiapine 100 mg Tablet 200 MG PO ×2 (09:10→20:02)
--- NOTE | 2020-09-27 09:19 | PC.CHAP ---
Pastoral Care Encounter/Spiritual Assessment Type of Contact [] Declined fourdrinier tender visit [] Patient/Family/Request visit [] Outpatient visit [] Follow-up visit [] Physician referral [] Code/Alert [x] Routine visit [] Staff referral [] Actively dying [] Patient sleeping [] Family support [] [] Out of room [] Palliative care [] [] Receiving care in room [] Pre-surgical visit [] Trauma [] Long length of stay [x] ICU visit [x] Other: prayed with patient at door way Relational/Emotional Strength [] Patient feels connected with others/family/visitors/staff [] Distress [] Loneliness/isolation [] Abandonment Spirituality of Patient [] Person of Natalya [] Attends Restorationist of their Natalya [] Believes in Prayer [] Reads Bible or Spiritism materials [] There are Spiritual issues to be addressed Apron Operator Interventions [x] Prayer [] Active listening [] Non-anxious presence [] Spiritual/emotional support [] Crisis/trauma care [] Spiritual counseling [] Bereavement support [] Provided bereavement packet [] Provided Bible/devotional materials [] Provided toy/stuffed animal, coloring book to patient or family member [] Provided Communion [] Anointing/[place] [] Salvation [x] Completed spiritual assessment [] Other: Impact on Illness or Injury [] Angry [] Fearful [] Anxious [] Often cries [] Exhaustion [] Unable to work [] Unable to attend presybeterian [] Unable to walk/stand [] Unable to read [] Unable to drive [] Unable to eat/drink [] Unable to sleep [] Unable to be with family [] Patient intubated [] Other: Summary Time spent with patient x
--- NOTE | 2020-09-27 10:00 | PC.NURSE ---
Bladder scan was done on patient and >642 was noted in bladder. Bladder was distended and tender to palpate. Urinal was placed in a position to collect urine and patient was instructed to try and urinate. Patient understood. WIll recheck
--- NOTE | 2020-09-27 10:03 | PC.NURSE ---
Patient sat up on side of bed and stood up with assistance from this nurse and patient began coughing. Cough was productive and this nurse instructed patient to spit it out in specimen cup but patient swallowed it. Specimen cup placed at bedside and patient educated on sputum collection.
--- NOTE | 2020-09-27 10:21 | P.PN_ITS ---
Subjective Subjective: Interval history: Patient was seen this morning, currently on 5 L, T-max 100.4 overnight he has no complaints, denies any bowel movement, according to nursing staff, has not urinated according to nursing staff, they are not sure if he is incontinent of urine, his postvoid residual is 400 cc Vitals/I&O/Wt Last Vital Signs Temp 98.0 F 09/27/20 07:00 Pulse 102 H 09/27/20 09:30 Resp 23 H 09/27/20 09:30 BP 108/70 09/27/20 09:00 Pulse Ox 99 09/27/20 09:30 09/26/20 09/27/20 09/27/20 22:59 06:59 14:59 Intake Total 2819.01 / 2819.01 1377.5 / 4196.51 240 / 240 Balance 2819.01 / 2819.01 1377.5 / 4196.51 240 / 240 Weight last 48 hrs Weight 58.967 kg Physical Exam Const: COMMON NORMALS: no acute distress GENERAL APPEARANCE: cooperative, comfortable and anxious ORIENTATION/CONSCIOUSNESS: Yes awake, Yes oriented to person and Yes oriented to place; not oriented to time Resp: COMMON NORMALS: normal respiratory effort AUSCULTATION: diminished lung sounds diffuse Cardio: COMMON NORMALS: regular rate, regular rhythm, S1 normal heart sound present and S2 normal heart sound present RATE: regular rate RHYTHM: r egular rhythm HEART SOUNDS: S1 normal heart sound present and S2 normal heart sound present GI: COMMON NORMALS: Normal to inspection, nondistended, normoactive bowel sounds present, Soft to palpation and non-tender PALPATION: Yes Soft to palpation Extremity: COMMON NORMALS: no pedal edema Neuro: SENSORIUM/ORIENTATION: Yes oriented to person, Yes oriented to place and No oriented to time Data : 09/27/20 03:50 09/27/20 03:50 Micro: Microbiology 09/26/20 14:05 Blood Culture - Preliminary Blood SPECIMEN COLLECTED 09/26/20 13:35 Blood Culture - Preliminary Blood SPECIMEN COLLECTED A&P Assessment and plan (1) Fragile x chromosome: Status: Acute (2) Mild intellectual disabilities: Status: Chronic (3) ADHD (attention deficit hyperactivity disorder): Status: Chronic (4) Sepsis: Status: Acute (5) LLL pneumonia: Status: Acute (6) Acute respiratory failure with hypoxia: -secondary to LLL PNA with sepsis -HR 125, RR 30, temp 100, on 13L nonrebreather, Bp 100's over 60 in the emergency room -LA 1.0, WBC 9.5, cxray LLL infiltrate -T-max 100.4, respiratory rate 20-23, pulse 102, on 5 L -CT scan shows multi lobar pneumonia PLAN: -admit to ICU -received sepsis bolus, Levaquin -start broadspectrum antibiotics vancomycin and zosyn -Blood cultures, urine cultures, UA, sputum cultures, urine bacterial antigen -Discontinue IV hydration -Rapid Covid negative, flu swab negative -Covid PCR ordered -Dysphagia diet as there is a concern for possible aspiration, will have speech therapy see patient -Monitor respiratory status closely -BiPAP as needed for shortness of breath, ABG showed a pH of 7.34, hypercarbia PCO2 55 -Bladder scan, if postvoid residual greater than 200 we will have to place a Yan -CT scan shows possible rectal fecal impaction, patient denies any bowel movement, will continue MiraLAX, Colace, add milk of mag -Nebulizer treatments -Full code -Lovenox for DVT prophylaxis Status: Acute Attestations Medical Necessity Statement*: Patient requires hospitalization for due to respiratory failure with hypoxia and hypercarbia secondary to multilobar pn eumonia, requires ICu admission due to concerns for sepsis, tenuous respiratory status, Fragile X, intellectual disability, requiring increased monitoring, critical care time spent over 35 minutes Coding Level of Care Code Acute Parts Counterman for [facility] Fwd Diagnoses Fragile x chromosome Q99.2 Mild intellectual disabilities F70 ADHD (attention deficit hyperactivity disorder) F90.9 Sepsis A41.9 LLL pneumonia J18.9 Acute respiratory failure with hypoxia J96.01
--- NOTE | 2020-09-27 11:19 | US_ITS ---
WS: [id number] ULTRASOUND RENAL TECHNIQUE: Ultrasound examination of both kidneys. CLINICAL INFORMATION: decreased uop COMPARISON: None. FINDINGS: RIGHT: Right kidney is normal in size and appearance. Echogenicity: Normal. Cortical thickness: 1.8 cm; Normal. Hydronephrosis: None. Perinephric fluid: None. Right kidney measures: 9.0 cm x 5.6 cm x 4.8 cm. LEFT: Left kidney is normal in size and appearance. Echogenicity: Normal. Cortical thickness: 1.7 cm; Normal. Hydronephrosis: None. Perinephric fluid: None. Left kidney measures: 9.3 cm x 4.8 cm x 4.0 cm. Normal visualized aorta. Bladder is decompressed. Diffuse bladder wall thickening. US/US renal BI* [id number] IMPRESSION: 1. Normal renal ultrasound 2. Diffuse bladder wall thickening. Recommend correlation for cystitis.
[2020-09-27] MEDS: magnesium hydroxide 30 mL UDC PO (11:48)
[2020-09-27 14:50] LABS: Coronavirus Test Green County Not Detected
[2020-09-27] MEDS: enoxaparin 40 mg/0.4 mL Syringe SUBCUT (15:41)
[2020-09-27 17:09] LABS: Vancomycin Trough 8.4 ug/mL (10-15)
[2020-09-27] MEDS: vancomycin 1,000 MG in sodium chloride 0.9% 250 ML 250 MG IV (17:30)
[2020-09-27] MEDS: ipratropium-albuterol 3 mL Neb INHALATION (20:43)
[2020-09-28] VITALS (37 sets, daily range): BP systolic 104–129; BP diastolic 68–83; PULSE 81–121; RESP 16–27; TEMP 36.4–37.3; O2SAT 94–100
[2020-09-28] MEDS: vancomycin 1,000 MG in sodium chloride 0.9% 250 ML 250 MG IV ×3 (01:59→23:21)
[2020-09-28] MEDS: piperacillin-tazobactam 3.375 GM in sodium chloride 0.9% (plus) 50 ML IV ×2 (02:00→10:18)
[2020-09-28] MEDS: famotidine 20 mg/2 mL INJ IVP ×2 (03:56→15:34)
[2020-09-28] MEDS: acetaminophen 325 mg Tablet 650 MG PO (04:46)
[2020-09-28 04:57] LABS: Basophils % 0.2 %; Eosinophils % 0.6 %; Hematocrit 37.7 % (42.0-52.0); Hemoglobin 11.4 g/dL (11.7-16.6); Lymphocytes # 0.9 10^3/uL (0.8-4.8); Lymphocytes % 18.1 %; Mean Corpuscular HGB Conc 30.2 g/dL (30.0-36.0); Mean Corpuscular Hemoglobin 30.1 pg (28.0-34.0); Mean Corpuscular Volume 99.5 fL (80-94); Mean Platelet Volume 10.4 fL (7.4-10.4); Monocytes # 0.3 10^3/uL (0.2-0.9); Monocytes % 6.2 %; Neutrophils # 3.61 10^3/uL (1.8-7.7); Neutrophils % 74.5 %; Nucleated Red Blood Cells % 0 %; Platelet Count 118 10^3/cmm (130-400); Red Blood Count 3.79 10^6/uL (4.1-5.3); Red Cell Distribution Width 13.5 % (12.1-15.1); White Blood Count 4.9 10^3/uL (4.0-10.0)
[2020-09-28 05:16] LABS: Lactate (Lactic Acid level) 0.5 mmol/L (0.5-2.2)
[2020-09-28 05:17] LABS: C Reactive Protein 145.4 mg/L (0.0-4.9); Magnesium 2.1 mg/dL (1.7-2.3); Phosphorus 2.1 mg/dL (2.5-4.5)
[2020-09-28 05:18] LABS: Alanine Aminotransferase 12 U/L (0-41); Albumin Level 3.1 g/dL (3.5-5.2); Alkaline Phosphatase 67 IU/L (40-130); Anion Gap 10.4 (5-19); Aspartate Amino Transferase 19 U/L (0-40); Blood Urea Nitrogen 9 mg/dL (6-20); Calcium 7.8 mg/dL (8.5-10.5); Carbon Dioxide 29 mmol/L (22-29); Chloride 111 mmol/L (98-107); Globulin 2.7 g/dL (1.3-4.6); Glucose 78 mg/dL (65-115); Osmolality Calculated 302 mOsm/kg (285-295); Potassium 3.4 mmol/L (3.5-5.1); Procalcitonin 0.15 ng/mL (0-0.5); Sodium 147 mmol/L (136-145); Total Bilirubin 0.5 mg/dL (0.15-1.2); Total Protein 5.8 g/dL (6.6-8.7)
[2020-09-28 05:31] LABS: Creatine Phosphokinase 110 U/L (39-308); Ferritin 350 ng/mL (30-400)
[2020-09-28 05:35] LABS: Add Urine Microscopic? NO; Charge for UA Resulting for Rev
--- NOTE | 2020-09-28 06:09 | PC.NURSE ---
No changes on patient through out shift. Patient did void a small amount of urine into urinal to obtain urine specimen. Continue care.
[2020-09-28 06:20] LABS: Bilirubin Urine Neg (Negative); Blood Urine Neg (Negative); Glucose Urine UA Norm (Normal); Ketones Urine Negative (Negative); Leukocyte Esterase Urine Negative (Negative); Nitrate Urine Negative (Negative); Protein Urine Neg (Negative); Urine Appearance Clear (CLEAR); Urine Color Yellow (Yellow); Urobilinogen Urine 1 mg/dL (Negative); pH Urine 5 (5-7)
[2020-09-28] MEDS: ipratropium-albuterol 3 mL Neb INHALATION ×4 (07:51→19:17)
[2020-09-28] MEDS: quetiapine 100 mg Tablet 200 MG PO ×2 (08:25→21:37)
[2020-09-28] MEDS: docusate sodium 100 mg Capsule PO ×2 (08:30→19:01)
[2020-09-28] MEDS: polyethylene glycol 3350 Pkt 17 gm PO (08:31)
[2020-09-28] MEDS: sodium chloride 0.9% 1,000 ML 50 ML IV (09:15)
[2020-09-28] MEDS: magnesium hydroxide 30 mL UDC PO ×2 (10:18→23:20)
--- NOTE | 2020-09-28 10:33 | PC.CHAP ---
Pastoral Care Encounter/Spiritual Assessment Type of Contact [] Declined roto gravure press operator visit [] Patient/Family/Request visit [] Outpatient visit [] Follow-up visit [] Physician referral [] Code/Alert [x] Routine visit [] Staff referral [] Actively dying [] Patient sleeping [] Family support [] [] Out of room [] Palliative care [] [] Receiving care in room [] Pre-surgical visit [] Trauma [] Long length of stay [x] ICU visit [] Other: Relational/Emotional Strength [] Patient feels connected with others/family/visitors/staff [] Distress [] Loneliness/isolation [] Abandonment Spirituality of Patient [] Person of Natalya [] Attends Scientologist of their Natalya [] Believes in Prayer [] Reads Bible or Caodaism materials [] There are Spiritual issues to be addressed Clay Washer Interventions [x] Prayer [x] Active listening [x] Non-anxious presence [x] Spiritual/emotional support [] Crisis/trauma care [] Spiritual counseling [] Bereavement support [] Provided bereavement packet [] Provided Bible/devotional materials [] Provided toy/stuffed animal, coloring book to patient or family member [] Provided Communion [] Anointing/[place] [] Salvation [x] Completed spiritual assessment [] Other: Impact on Illness or Injury [] Angry [] Fearful [] Anxious [] Often cries [] Exhaustion [] Unable to work [] Unable to attend spiritism [] Unable to walk/stand [] Unable to read [] Unable to drive [] Unable to eat/drink [] Unable to sleep [] Unable to be with family [] Patient intubated [] Other: Summary eating well... feeling somewhat better Time spent with patient 5 min
[2020-09-28] MEDS: Fleet Enema 133 mL Enema PR (10:34)
--- NOTE | 2020-09-28 11:45 | P.PN_ITS ---
Subjective Subjective: Interval history: Patient was examined this morning, he tells me is doing well now to 3 L, he has been urinating, has not had a bowel movement as of yet, no abdominal pain, speech therapy has not seen him as of yet Vitals/I&O/Wt Last Vital Signs Temp 97.6 F 09/28/20 08:00 Pulse 92 09/28/20 11:32 Resp 16 09/28/20 11:32 BP 110/74 09/28/20 09:00 Pulse Ox 96 09/28/20 11:32 09/27/20 09/28/20 09/28/20 22:59 06:59 14:59 Intake Total 370 / 910 450 / 1360 240 / 240 Output Total 1000 / 1000 Balance 370 / 110 450 / 560 -760 / -760 Weight last 48 hrs Weight 58.967 kg Physical Exam Const: COMMON NORMALS: no acute distress ORIENTATION/CONSCIOUSNESS: Yes awake, Yes oriented to person and Yes oriented to place; not oriented to time Neck/C-Spine: COMMON NORMALS: no JVD Resp: COMMON NORMALS: normal respiratory effort, No retractions, No use of accessory muscles, clear to auscultation bilaterally and percussion normal AUSCULTATION: clear to auscultation bilaterally PERCUSSION: percussion normal Cardio: COMMON NORMALS: no JVD, regular rate, regular rhythm, S1 normal heart sound present and S2 normal heart sound present RATE: regular rate RHYTHM: regular rhythm and abnormal rhythm HEART SOUNDS: S1 normal heart sound pres ent and S2 normal heart sound present GI: COMMON NORMALS: Normal to inspection, nondistended, normoactive bowel sounds present, Soft to palpation, non-tender, No hepatosplenomegaly present and no masses PALPATION: Yes Soft to palpation and Yes No hepatosplenomegaly present Extremity: COMMON NORMALS: normal to inspection and no pedal edema Neuro: SENSORIUM/ORIENTATION: Yes oriented to person, Yes oriented to place and No oriented to time Data : 09/28/20 04:20 09/28/20 04:20 Micro: Microbiology 09/26/20 14:05 Blood Culture - Preliminary Blood NEGATIVE TO DATE 09/26/20 13:35 Blood Culture - Preliminary Blood NEGATIVE TO DATE A&P Assessment and plan (1) Fragile x chromosome: Status: Acute (2) Mild intellectual disabilities: Status: Chronic (3) ADHD (attention deficit hyperactivity disorder): Status: Chronic (4) Sepsis: Status: Acute (5) LLL pneumonia: Status: Acute (6) Acute respiratory failure with hypoxia: -secondary to LLL PNA with sepsis -HR 125, RR 30, temp 100, on 13L nonrebreather, Bp 100's over 60 in the emergency room -LA 1.0, WBC 9.5, cxray LLL infiltrate -T-max 100.4, currently on 3 L -CT scan shows multi lobar pneumonia PLAN: -We will move out of CSU -start broadspectrum antibiotics vancomycin and zosyn -Blood cultures, urine cultures, UA, sputum cultures, urine bacterial antigen -Discontinue IV hydration -Rapid Covid negative, flu swab negative -Covid PCR negative -Dysphagia diet as there is a concern for possible aspiration, will have speech therapy see patient -Monitor respiratory status closely -BiPAP as needed for shortness of breath -CT scan shows possible rectal fecal impaction, patient denies any bowel movement, will continue MiraLAX, Colace, add milk of mag, and -Nebulizer treatments -Full code -Lovenox for DVT prophylaxis Status: Acute Attestations Medical Necessity Statement*: Patient requires hospitalization for acute re spiratory failure secondary to left lower lobe pneumonia, will be moved to general medical floors, critical care time spent over 35 minutes Coding Level of Care Code Acute Electronic Assembler for [employer] Fwd Diagnoses Fragile x chromosome Q99.2 Mild intellectual disabilities F70 ADHD (attention deficit hyperactivity disorder) F90.9 Sepsis A41.9 LLL pneumonia J18.9 Acute respiratory failure with hypoxia J96.01
--- NOTE | 2020-09-28 14:52 | PC.NURSE ---
0800 recd. resting quietly awakened easily for breakfast.
--- NOTE | 2020-09-28 14:53 | PC.NURSE ---
0900 up to b.s.c. passing gas. no stool.
--- NOTE | 2020-09-28 14:54 | PC.NURSE ---
1130 up to b.s.c. after enema. h.r. in 140s. severe straining. huge bowel movement. large in circum. rectal bleeding noted. didnt c/o pain.
[2020-09-28] MEDS: enoxaparin 40 mg/0.4 mL Syringe SUBCUT (15:34)
[2020-09-28 18:32] LABS: Vancomycin Trough 15.8 ug/mL (10-15)
[2020-09-29] VITALS (10 sets, daily range): BP systolic 106–131; BP diastolic 70–75; PULSE 84–110; RESP 16–20; TEMP 36.4–37.6; O2SAT 91–98
[2020-09-29] MEDS: piperacillin-tazobactam 3.375 GM in sodium chloride 0.9% (plus) 50 ML IV ×2 (00:43→08:19)
[2020-09-29] MEDS: sodium chloride 0.9% 1,000 ML 50 ML IV (00:44)
[2020-09-29 05:17] LABS: Basophils % 0.2 %; Eosinophils % 0.9 %; Hematocrit 32.9 % (42.0-52.0); Hemoglobin 10.2 g/dL (11.7-16.6); Lymphocytes # 0.8 10^3/uL (0.8-4.8); Lymphocytes % 17.1 %; Mean Corpuscular Hemoglobin 30.5 pg (28.0-34.0); Mean Corpuscular Volume 98.5 fL (80-94); Mean Platelet Volume 10.6 fL (7.4-10.4); Monocytes # 0.3 10^3/uL (0.2-0.9); Monocytes % 6.7 %; Neutrophils # 3.47 10^3/uL (1.8-7.7); Neutrophils % 74.9 %; Nucleated Red Blood Cells % 0 %; Platelet Count 144 10^3/cmm (130-400); Red Blood Count 3.34 10^6/uL (4.1-5.3); Red Cell Distribution Width 13.6 % (12.1-15.1); White Blood Count 4.6 10^3/uL (4.0-10.0)
[2020-09-29 05:43] LABS: Alanine Aminotransferase 11 U/L (0-41); Alkaline Phosphatase 61 IU/L (40-130); Anion Gap 9.7 (5-19); Aspartate Amino Transferase 20 U/L (0-40); Blood Urea Nitrogen 10 mg/dL (6-20); Calcium 7.9 mg/dL (8.5-10.5); Carbon Dioxide 31 mmol/L (22-29); Chloride 109 mmol/L (98-107); Globulin 2.4 g/dL (1.3-4.6); Glucose 81 mg/dL (65-115); Osmolality Calculated 300 mOsm/kg (285-295); Potassium 3.7 mmol/L (3.5-5.1); Sodium 146 mmol/L (136-145); Total Bilirubin 0.4 mg/dL (0.15-1.2); Total Protein 5.4 g/dL (6.6-8.7)
[2020-09-29 05:44] LABS: C Reactive Protein 95.4 mg/L (0.0-4.9); Magnesium 2.3 mg/dL (1.7-2.3); Phosphorus 2.2 mg/dL (2.5-4.5)
[2020-09-29 05:48] LABS: Procalcitonin 0.12 ng/mL (0-0.5)
[2020-09-29] MEDS: vancomycin 1,000 MG in sodium chloride 0.9% 250 ML 250 MG IV (06:24)
[2020-09-29] MEDS: acetaminophen 325 mg Tablet 650 MG PO (08:18)
[2020-09-29] MEDS: famotidine 20 mg Tablet PO (08:19)
[2020-09-29] MEDS: polyethylene glycol 3350 Pkt 17 gm PO (08:19)
[2020-09-29] MEDS: quetiapine 100 mg Tablet 200 MG PO (08:19)
[2020-09-29] MEDS: docusate sodium 100 mg Capsule PO (08:19)
[2020-09-29] MEDS: ipratropium-albuterol 3 mL Neb INHALATION ×2 (09:17→13:03)
--- NOTE | 2020-09-29 10:50 | PM.DCS ---
Discharge Providers Date of Admission: 09/26/20 15:13 Date of Discharge: September 29, 2020 Attending Provider at Admission: Deejay Champagne MD Attending Provider at Discharge: Deejay Champagne MD Primary Care Provider: ARA Cullen Diagnoses at Discharge Discharge Diagnosis (1) Fragile x chromosome: Status: Acute (2) Mild intellectual disabilities: Status: Chronic (3) ADHD (attention deficit hyperactivity disorder): Status: Chronic (4) Sepsis: Status: Acute (5) LLL pneumonia: Status: Acute (6) Acute respiratory failure with hypoxia: Status: Acute Reason for Visit Reason for Visit: RESP DISTRESS Hospital Course Hospital Course This is a pleasant 29-year-old male with a past medical history of Fragile X syndrome, myotonic muscular dystrophy, intellectual disability, ADHD, who presents to [facility] due to cough, hypoxia, fevers Patient was admitted to [facility] ICU, for acute hypoxic respiratory failure secondary to left lower lobe pneumonia, received broad-spectrum antibiotic therapy, oxygen therapy, nebulizer treatments, and clinically monitored. Patient slowly clinically improved, moved to the general medical floors, remained afebrile, all cultures have been unremarkable. Patient will be discharged on Levaquin for 7 remaining days, albuterol, 2 L oxygen. Given the nature of his recurrent pneumonias, there is concerns for aspiration pneumonia, I will have patient follow-up with pulmonary, discharged on a dysphagia diet, aspiration precautions Patient did have radiographic evidence of fecal impaction, was given several stool softeners, enema, had a large bowel movement. I have discharged him on a bowel regimen. Physical Exam Const: COMMON NORMALS: no acute distress and patient oriented x3 GENERAL APPEARANCE: cooperative and comfortable ORIENTATION/CONSCIOUSNESS: Yes awake, Yes oriented to person and Yes oriented to place HENMT: COMMON NORMALS: normocephalic HEAD & SCALP: normocephalic Neck/C-Spine: COMMON NORMALS: no JVD Resp: COMMON NORMALS: normal respiratory effort, No retractions, No use of accessory muscles and clear to auscultation bilaterally AUSCULTATION: clear to auscultation bilaterally Cardio: COMMON NORMALS: no JVD, regular rate, regular rhythm, S1 normal heart sound present and S2 normal heart sound present RATE: regular rate RHYTHM: regular rhythm HEART SOUNDS: S1 normal heart sound present and S2 normal heart sound present GI: COMMON NORMALS: Normal to inspection, nondistended, normoactive bowel sounds present and Soft to palpation PALPATION: Yes Soft to palpation Extremity: COMMON NORMALS: no pedal edema Neuro: COMMON NORMALS: patient oriented x3 and CN's II-XII intact bilaterally SENSORIUM/ORIENTATION: Yes oriented to person and Yes oriented to place Discharge Data Data Completed and Pending: Completed Studies During Hospitalization Category Date Time Status CT chest abd pel wo con Stat Cat Scan 09/26/20 15:28 Completed XR chest 1V renetta ble [id number] Stat Exams 09/26/20 13:02 Completed US renal BI* [id number] Routine Ultrasound 09/27/20 11:19 Completed Pending at discharge Category Date Time Status Blood Culture Sta t Lab 09/26/20 14:05 Results Complete Blood Co unt w/Auto AM LABS Lab 09/30/20 04:00 Ordered Comprehensive Met abolic Panel AM LA BS Lab 09/30/20 04:00 Ordered Sputum Culture an d Gram Stain Stat Lab 09/26/20 15:28 Uncollected Labs from last 24 hours 09/29/20 09/29/20 09/29/20 04:37 04:37 04:37 WBC 4.6 RBC 3.34 L Hgb 10.2 L Hct 32.9 L MCV 98.5 H MCH 30.5 MCHC 31.0 RDW 13.6 Plt Count 144 MPV 10.6 H Neut % (Auto) 74.9 Lymph % (Auto) 17.1 Stokes % (Auto) 6.7 Eos % (Auto) 0.9 Baso % (Auto) 0.2 Neut # (Auto) 3.47 Lymph # (Auto) 0.8 Stokes # (Auto) 0.3 Eos # (Auto) 0.0 Baso # (Auto) 0.0 Nucleated RBC % (a uto) 0 Nucleated RBCs # 0.0 Sodium 146 H Potassium 3.7 Chloride 109 H Carbon Dioxide 31 H Anion Gap 9.7 BUN 10 Creatinine 0.5 L GFR Calculation 198.0 H Glucose 81 Calculated Osmolal ity 300 H Calcium 7.9 L Phosphorus Magnesium Total Bilirubin 0.4 AST 20 ALT 11 Alkaline Phosphata se 61 C-Reactive Protein Total Protein 5.4 L Albumin 3.0 L Globulin 2.4 Procalcitonin 0.12 Vancomycin Trough 09/29/20 09/28/20 04:37 17:18 WBC RBC Hgb Hct MCV MCH MCHC RDW Plt Count MPV Neut % (Auto) Lymph % (Auto) Stokes % (Auto) Eos % (Auto) Baso % (Auto) Neut # (Auto) Lymph # (Auto) Stokes # (Auto) Eos # (Auto) Baso # (Auto) Nucleated RBC % (a uto) Nucleated RBCs # Sodium Potassium Chloride Carbon Dioxide Anion Gap BUN Creatinine GFR Calculation Glucose Calculated Osmolal ity Calcium Phosphorus 2.2 L Magnesium 2.3 Total Bilirubin AST ALT Alkaline Phosphata se C-Reactive Protein 95.4 H Total Protein Albumin Globulin Procalcitonin Vancomycin Trough 15.8 H Vitals: Last Vital Signs Temp 99.1 F 09/29/20 07:48 Pulse 110 H 09/29/20 09:28 Resp 20 H 09/29/20 09:28 BP 112/72 09/29/20 07:48 Pulse Ox 91 09/29/20 09:28 Discharge Plan Discharge Patient Disposition: Home Condition: Stable Prescriptions: New albuterol sulfate 90 mcg/actuation HFA aerosol inhaler 1 inh inhalation Q6H PRN (Reason: shortness of breath or wheezing) Qty: 8.5 RF: 0 levofloxacin 750 mg tablet 750 mg PO DAILY 7 Days Qty: 7 RF: 0 Continued multivitamin Tablet 1 tab PO DAILY@0800 RF: 0 Seroquel 200 mg tablet 200 mg PO BID@0800,2000 RF: 0 Milk of Magnesia 400 mg/5 mL suspension 30 ml PO BID@0800,2000 PRN (Reason: constipation) RF: 0 Tums [place] 200 mg calcium (500 mg) tablet,chewable 400 mg PO DAILY@0800 RF: 0 Vitamin D3 25 mcg (1,000 unit) capsule 1,000 unit PO DAILY@0800 RF: 0 Changed sennosides-docusate sodium [Senna-S] 8.6-50 mg tablet 2 tab-cap PO BID Qty: 60 RF: 0 Miralax 17 gram/dose powder 17 g PO Q12H 30 Days Qty: 1020 RF: 0 Discharge Orders: Discharge Order (Routine); Ordered 09/29/20 Ordered By: Deejay Champagne Referrals: Prachi Geronimo MD [Physician] - 1 month (recurrent pna) Discharge Diet: As Directed Discharge Activity: Resume usual activity Patient Instructions: Aspiration, Aspiration Pneumonia (DC), Opioid Safety Activity Restrictions/Additional Instructions: -Please take antibiotics as prescribed for pneumonia -Please hydrate well -Albuterol as needed for shortness of breath -Please follow-up with primary care provider in 1 week -Discharged on home oxygen 2 L -Follow-up with pulmonary for aspiration -Aspiration precautions, chin tuck, slow chewing, dysphagia diet for now Discharge Attestations Time Spent in Discharge Care*: greater than 30 min Quality Metrics Clinical Quality Measures During this hospital stay, did patient experience: None Coding Level of Care Code Acute Chg FW DC note Diagnoses Fragile x chromosome Q99.2 Mild intellectual disabilities F70 ADHD (attention deficit hyperactivity disorder) F90.9 Sepsis A41.9 LLL pneumonia J18.9 Acute respiratory failure with hypoxia J96.01
[2020-09-29] MEDS: HYDROcodone-acetaminophen 5-325 mg Tablet 0.5 TAB PO (11:48)
--- NOTE | 2020-09-29 12:59 | PC.OT ---
OT note: Pt observed to independently ambulate to bathroom, complete toileting and hand hygiene, then return to chair. Pt reported he lives with caregiver but he typically does his own ADLs without devices. No further OT recommended at this time.
--- NOTE | 2020-09-29 17:11 | PC.PT ---
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 No further PT intervention planned at this time; see OT note for details.
--- NOTE | 2020-09-29 17:41 | PC.NURSE ---
PT HAS DONE WELL FOR ME TODAY, ESPECIALLY THIS AFTERNOON. PT WAS IN SOME PAIN THIS MORNING. PAIN DID NOT APPEAR TO BE HELPED BY TYLENOL. PT WAS GIVEN A ONE TIME ORDER OF HYDROCODONE THAT DID HELP THE PT. PT WAS ALSO ASSISTED TO A BED BATH AND SAT IN A CHAIR WHICH WAS HE SAID THAT MADE HIM FEEL ALOT BETTER. PT WILL DISCHARGE TODAY PER . PT'S IV WAS REMOVED. CATHETER TIP INTACT. PT'S BOOM MAN WAS CALLED AROUND 1400 TO LET HIM KNOW THAT HE WOULD BE DISCHARGED TODAY. CAREGIVER SAID HE COULDN'T BE HERE UNTIL AROUND 1600. THIS NURSE TOLD CAREGIVER THAT WAS FINE, EVERYTHING WOULD BE READY TO GO BY THEN. THE CAREGIVER ASKED IF I COULD FAX THE DISCHARGE PAPERWORK TO [facility]. THIS NURSE ATTEMPTED TO DO THAT. I WAS UNAWARE THAT THE [facility] NEVER RECEIVED THE PAPERWORK. ONCE TRAVIS LARSON, THE CAREGIVER, ARRIVED TO THE HOSPITAL HE ASKED ME TO FAX THE PAPERWORK. I TOLD HIM I THOUGHT I DID AFTER I GOT OFF THE PHONE WITH HIM. HE CALLED ELENA, THE FERMENTING CELLARS SUPERVISOR, AND SHE SAID THE FAX WAS NEVER RECEIVED. THIS NURSE FAXED THE PAPERWORK AGAIN. ELENA CONFIRMED THIS TIME THAT SHE HAD RECEIVED IT BUT HAD SOME QUESTIONS ABOUT THE DISCHARGE PAPERWORK AND DID NOT APPEAR TO BE HAPPY WITH HOW IT LOOKED. THIS NURSE ATTEMPTED TO SEE IF I COULD FIX IT AND ANSWER HER QUESTIONS BUT WAS NOT SUCCESSFUL. I NOTIFIED DRIVER ENGINEER PIA GAMEZ, WELL DR. SIGALA. CHANGES WERE MADE. A NEW SET OF DISCHARGE PAPERWORK WAS SENT TO ELENA. ELENA APPROVED OF IT. PT AND CAREGIVER OK TO LEAVE HOSPITAL. PT SAFELY DISCHARGED FROM HOSPITAL AT AROUND 1730.
== END 2020-09-29 17:50 | disposition home or self-care (01) | DRG 871 ==
LOC: ER 13:01 → ICU 15:13 → MEDSURG 09-28 14:51
PROVIDERS: Admitting Provider Family Medicine; Emergency Provider Family Medicine; PCP Nurse Practitioner; Visit Provider Family Medicine
DX: A41.9 Sepsis, unspecified organism (principal); J96.01 Acute respiratory failure with hypoxia; Q99.2 Fragile X chromosome; F70 Mild intellectual disabilities; F90.9 Attention-deficit hyperactivity disorder, unspecified type; Z87.01 Personal history of pneumonia (recurrent); K59.01 Slow transit constipation; G71.11 Myotonic muscular dystrophy; F43.12 Post-traumatic stress disorder, chronic; E55.9 Vitamin D deficiency, unspecified; R13.10 Dysphagia, unspecified
CPT/HCPCS: 36415; 36600; 71045; 71250; 74176; 76770; 80051; 80053; 80061; 80202; 81000; 81003; 82330; 82550; 82728; 82803; 82805; 83036; 83605; 83690; 83735; 83880; 84100; 84145; 84443; 85025; 86140; 86403; 87040; 87426; 87635; 87641; 87804; 92610; 93005; 94640; 94664; 96365; 96372; 99285; J1650; J1956; J2543; J3370; J3490; J3535; J7030; J7050

== ENCOUNTER → 2020-10-18 14:07 | Outpatient (BNVA) | payer MEDICAID, SELFPAY | PROVIDERS: PCP Nurse Practitioner; Visit Provider Nurse Practitioner | DX: K59.01 Slow transit constipation (principal); Z87.01 Personal history of pneumonia (recurrent) | CPT/HCPCS: 71046; 74018; 80053; 85025 ==

== ENCOUNTER 2020-11-10 13:56 | Outpatient (CLI) | payer MEDICAID, SELFPAY ==
[2020-11-10 14:44] LABS: Immunoglobulin IGA 241 mg/dL (70-400); Immunoglobulin IGG 661 mg/dL (700-1600); Immunoglobulin IGM 116 mg/dL (40-230)
== END 2020-11-10 13:57 | disposition home or self-care (01) ==
LOC: LAB 13:59
PROVIDERS: PCP Nurse Practitioner; Visit Provider Internal Medicine Critical Care Medicine
DX: J18.9 Pneumonia, unspecified organism (principal)
CPT/HCPCS: 36415; 82784

== ENCOUNTER → 2021-01-25 09:00 | Outpatient (BNVA) | payer MEDICAID, SELFPAY | PROVIDERS: Family Provider Nurse Practitioner Family; PCP Nurse Practitioner Family; Visit Provider Nurse Practitioner | DX: Z79.899 Other long term (current) drug therapy (principal); F70 Mild intellectual disabilities; F43.12 Post-traumatic stress disorder, chronic; F90.9 Attention-deficit hyperactivity disorder, unspecified type | CPT/HCPCS: 99214 ==

== ENCOUNTER → 2021-02-23 11:46 | Outpatient (BNVA) | payer MEDICAID, SELFPAY | PROVIDERS: PCP Nurse Practitioner; Visit Provider Nurse Practitioner | DX: F90.9 Attention-deficit hyperactivity disorder, unspecified type (principal); K59.01 Slow transit constipation; E55.9 Vitamin D deficiency, unspecified | CPT/HCPCS: 80053; 85025 ==

== ENCOUNTER → 2021-09-08 08:42 | Outpatient (BNVA) | payer MEDICAID, SELFPAY | PROVIDERS: PCP Nurse Practitioner; Visit Provider Nurse Practitioner | DX: F90.9 Attention-deficit hyperactivity disorder, unspecified type (principal); F43.12 Post-traumatic stress disorder, chronic; F70 Mild intellectual disabilities; Z79.899 Other long term (current) drug therapy | CPT/HCPCS: 99214 ==

== ENCOUNTER → 2021-10-03 11:06 | Outpatient (BNVA) | payer MEDICAID, SELFPAY | PROVIDERS: PCP Nurse Practitioner; Visit Provider Nurse Practitioner | DX: E55.9 Vitamin D deficiency, unspecified (principal); K59.01 Slow transit constipation; J18.9 Pneumonia, unspecified organism; Z79.899 Other long term (current) drug therapy | CPT/HCPCS: 71046; 80053; 80061; 81000; 83036; 85025 ==

== ENCOUNTER → 2021-12-26 15:55 | Outpatient (BNVA) | payer MEDICAID, SELFPAY | PROVIDERS: PCP Nurse Practitioner; Visit Provider Nurse Practitioner | DX: N39.0 Urinary tract infection, site not specified (principal) | CPT/HCPCS: 81000; 87077; 87086; 87184 ==

== ENCOUNTER → 2022-01-11 16:45 | Outpatient (BNVA) | payer MEDICAID, SELFPAY | PROVIDERS: PCP Nurse Practitioner; Visit Provider Nurse Practitioner | DX: N39.44 Nocturnal enuresis (principal) | CPT/HCPCS: 81000 ==

== ENCOUNTER → 2022-07-31 16:00 | Outpatient (BNVA) | payer MEDICAID, SELFPAY | PROVIDERS: PCP Nurse Practitioner; Visit Provider Nurse Practitioner | DX: M25.571 Pain in right ankle and joints of right foot (principal) | CPT/HCPCS: 73610 ==

== ENCOUNTER → 2022-09-10 13:33 | Outpatient (BNVA) | payer MEDICAID, SELFPAY | PROVIDERS: PCP Nurse Practitioner; Visit Provider Nurse Practitioner | DX: R05.9 Cough, unspecified (principal) | CPT/HCPCS: 71046; 85025 ==

== ENCOUNTER → 2022-09-20 08:35 | Outpatient (BNVA) | payer MEDICAID, SELFPAY | PROVIDERS: PCP Nurse Practitioner; Visit Provider Nurse Practitioner | DX: R09.82 Postnasal drip (principal); J18.9 Pneumonia, unspecified organism; Z79.899 Other long term (current) drug therapy | CPT/HCPCS: 71046; 80061; 83036 ==

== ENCOUNTER → 2022-10-04 16:19 | Outpatient (BNVA) | payer MEDICAID, SELFPAY | PROVIDERS: PCP Nurse Practitioner; Visit Provider Nurse Practitioner | DX: R05.9 Cough, unspecified (principal) | CPT/HCPCS: 71046 ==

== ENCOUNTER → 2023-03-18 13:53 | Outpatient (BNVA) | payer MEDICAID, SELFPAY | PROVIDERS: PCP Nurse Practitioner; Visit Provider Nurse Practitioner | DX: K06.9 Disorder of gingiva and edentulous alveolar ridge, unspecified (principal); E55.9 Vitamin D deficiency, unspecified; R09.82 Postnasal drip; K59.01 Slow transit constipation | CPT/HCPCS: 80053 ==

== ENCOUNTER → 2023-04-02 14:11 | Outpatient (BNVA) | payer MEDICAID, SELFPAY | PROVIDERS: PCP Nurse Practitioner; Visit Provider Nurse Practitioner Family | DX: J02.9 Acute pharyngitis, unspecified (principal) | CPT/HCPCS: 87071; 87880 ==

== ENCOUNTER → 2023-08-20 11:17 | Outpatient (BNVA) | payer MEDICAID, SELFPAY | PROVIDERS: PCP Nurse Practitioner; Visit Provider Nurse Practitioner Family | DX: J02.9 Acute pharyngitis, unspecified (principal); R05.9 Cough, unspecified; J90 Pleural effusion, not elsewhere classified | CPT/HCPCS: 71046; 87071; 87880 ==

== ENCOUNTER 2023-08-21 01:22 | Observation (INO) | payer MEDICAID, SELFPAY ==
[2023-08-21] VITALS (18 sets, daily range): BP systolic 102–132; BP diastolic 65–79; PULSE 99–134; RESP 16–26; TEMP 36.4–37; O2SAT 87–99; BMI 25.8
--- NOTE | 2023-08-21 01:49 | ECG_ITS ---
[facility] Test Date: 2023-08-21 Pat Name: Williams iDor Department: Room: 277 Gender: Male Group Home Counselor: : 1990 Requested By: Jose Duron Order Number: [id number] Lionel MD: Konstantin Roblero M.D. Measurements Intervals [place] Rate: 112 P: 57 NC: 191 QRS: -48 QRSD: 122 T: 46 QT: 346 QTc: 474 Interpretive Statements SINUS TACHYCARDIA LEFT AXIS DEVIATION [QRS AXIS < -30] MODERATE INTRAVENTRICULAR CONDUCTION DELAY [110+ ms QRS DURATION] NONSPECIFIC ST ELEVATION [0.05+ mV ST ELEVATION] Compared to ECG 09/26/2020 13:02:42 Left-axis deviation now present Intraventricular conduction delay now present Left anterior fascicular block no longer present Early repolarization no longer present ST (T wave) deviation still present Electronically Signed On 08-21-2023 18:35:42 CDT by Konstantin Roblero M.D. [email or web address]
--- NOTE | 2023-08-21 02:17 | XRR_ITS ---
PROCEDURE INFORMATION: Exam: XR Chest Exam date and time: 08/21/2023 2:23 AM Age: 32 years old Clinical indication: Dyspnea TECHNIQUE: Imaging protocol: Radiologic exam of the chest. Views: 1 view. COMPARISON: CR XR chest 2V* [id number] 08/20/2023 11:16 AM FINDINGS: Lungs: Improving aeration of the bilateral lung magaña with residual retrocardiac and left lower lobe streaky/linear opacities suggesting atelectasis. Pleural spaces: Improved blunting of the bilateral costophrenic angles with perhaps mild residual left costophrenic angle blunting. Heart/Mediastinum: Unremarkable. No cardiomegaly. Bones/joints: Unremarkable. XR/XR chest 1V portable [id number] IMPRESSION: 1. Improving aeration of the bilateral lung magaña with residual left basilar atelectasis. 2. Improving bilateral pleural effusions with likely minimal residual left pleural effusion.
[2023-08-21 02:36] LABS: Basophils % 0.4 %; Eosinophils % 0.9 %; Hematocrit 42.5 % (37-53); Lymphocytes # 1.1 10^3/uL (0.8-4.8); Lymphocytes % 24.2 %; Mean Corpuscular HGB Conc 32.2 g/dL (30-55); Mean Corpuscular Hemoglobin 31.4 pg (27-33); Mean Corpuscular Volume 97.5 fl (82-101); Monocytes # 0.4 10^3/uL (0.2-0.9); Neutrophils # 2.96 10^3/uL (1.8-7.7); Neutrophils % 65.1 %; Nucleated Red Blood Cells % 0 %; Platelet Count 149 10^3/cmm (157-399); Red Blood Count 4.36 10^6/uL (3.85-5.65); White Blood Count 4.55 10^3/uL (3.29-11.43)
[2023-08-21 02:55] LABS: Alanine Aminotransferase 18 U/L (0-41); Albumin Level 3.9 g/dL (3.5-5.2); Alkaline Phosphatase 90 U/L (40-130); Anion Gap 14.5 (5-19); Aspartate Amino Transferase 22 U/L (0-40); Blood Urea Nitrogen 14 mg/dL (6-20); Calcium 9.3 mg/dL (8.5-10.5); Carbon Dioxide 28 mmol/L (22-29); Chloride 105 mmol/L (98-107); Creatinine Clr Calc Pharmacy 145.5712; Glomerular Filtration Rate 131.5 mL/min (90-130); Glucose 88 mg/dL (65-115); Lactic Sepsis W/Reflex 0.7 mmol/L (0.5-2.2); Osmolality Calculated 296 mOsm/kg (285-295); Potassium 4.5 mmol/L (3.5-5.1); Sodium 143 mmol/L (136-145); Total Bilirubin 0.4 mg/dL (0.15-1.2); Total Protein 6.9 g/dL (6.6-8.7)
[2023-08-21] MEDS: ipratropium-albuterol 3 mL Neb INHALATION ×3 (02:58→20:23)
[2023-08-21 03:02] LABS: Procalcitonin 0.08 ng/mL (0-0.5)
--- NOTE | 2023-08-21 05:22 | P.HP_ITS ---
Providers/Chief Complaint 2 Primary Care Provider: ARA Cullen Chief Complaint: O2 Levels Low History of Present Illness Williams Dior is a 32 year old male with past medical history significant for Fragile X syndrome, myotonic muscular dystrophy, intellectual disability, ADHD, and recent pneumonia who presents to the emergency department with cough and shortness of breath. Patient is accompanied with one of his caregivers. She states he is been sick for about 2 to 3 days. Cough is mildly productive. She also noticed marked tachycardia which she reports is usually an indicator that he is ill. Patient was seen on 08/19 with complaints of cough, headache, and sore throat for several days. X-ray showed new atelectasis, edema, and/or pneumonitis in both mid and lower lungs with new small bilateral pleural effusions. He was treated with oral levofloxacin. She reports he only taken 1 dose of this so far. There is some concern for aspiration. Patient does endorse continued shortness of breath, headache, cough, and sore throat. Denies known fever. Denies alleviating or aggravating factors. Review of Systems 2 Narrative: A complete review of systems was obtained and is negative except as stated in HPI. Medications/Allergies Home Medications Medication Instructions Recorded Confirmed Last Taken Type fluticasone propionate 50 1 spray intranasal BID PRN nasal 09/09/22 08/20/23 Unknown Rx mcg/actuation nasal congestion #16 grams spray,suspension (Flonase Allergy Relief) nebulizers #1 ea 10/04/22 08/20/23 Unknown Rx quetiapine 200 mg tablet (Seroquel) 200 mg PO BID@0800,2000 #60 tabs 01/02/23 08/20/23 Unknown Rx acetaminophen 325 mg capsule 325 mg PO Q6H PRN pain or fever 03/18/23 08/20/23 Unknown Rx (Tylenol) #30 caps calcium carbonate 200 mg calcium See Rx Instructions .Route 03/18/23 08/20/23 Unknown Rx (500 mg) chewable tablet (Antacid .COMPLEX #60 ea (calcium carbonate)) cholecalciferol (vitamin D3) 25 1,000 unit PO DAILY #30 ea 03/18/23 08/20/23 Unknown Rx mcg (1,000 unit) tablet fluoride (sodium) 1.1 % dental See Rx Instructions .Route 03/18/23 08/20/23 Unknown Rx cream (Denta 5000 Plus) .COMPLEX #51 grams guaifenesin 600 mg tablet, 600 mg PO Q12H #60 tabs 03/18/23 08/20/23 Unknown Rx extended release 12 hr (Mucinex) magnesium hydroxide 400 mg/5 mL 15 ml PO BID PRN constipation 03/18/23 08/20/23 Unknown Rx oral suspension (Milk of Magnesia) #3,000 mL polyethylene glycol 3350 17 17 g PO Q12H 30 days #1,020 grams 03/18/23 08/20/23 Unknown Rx gram/dose oral powder (Miralax) sennosides 8.6 mg-docusate sodium 2 tab-cap (2 x 8.6-50 mg) PO BID 03/18/23 08/20/23 Unknown Rx 50 mg tablet (Senna-S) #60 tabs amoxicillin 875 mg tablet 875 mg PO BID 10 days #20 tabs 04/02/23 08/20/23 Unknown Rx albuterol sulfate 2.5 mg/3 mL 2.5 mg (3 mL) inhalation Q4H PRN 04/12/23 08/20/23 Unknown Rx (0.083 %) solution for nebulization shortness of breath or wheezing #180 mL azithromycin 250 mg tablet See Rx Instructions PO .COMPLEX #6 04/12/23 08/20/23 Unknown Rx tabs prednisone 20 mg tablet 20 mg PO BID 5 days #10 tabs 04/12/23 08/20/23 Unknown Rx vitamin no.167-folic acid 1 tab PO DAILY #30 tabs 06/24/23 08/20/23 Unknown Rx 400 mcg-dha 25 mg chewable tablet (One-A-Day ) chlorhexidine gluconate 0.12 % 15 ml buccal BID #600 mL 08/02/23 08/20/23 Unknown Rx mouthwash (Peridex) trazodone 100 mg tablet 100 mg PO .HS #30 tabs 08/08/23 08/20/23 Unknown Rx levofloxacin 500 mg tablet 500 mg PO DAILY #10 tabs 08/20/23 08/20/23 Unknown Rx Allergies Allergy/AdvReac Type Severity Reaction Status Date / Time No Known Allergies Allergy Verified 08/20/23 10:57 PFSH Acute 2 PFSH: Medical History Gingiva disorder Insomnia Psychiatric care On combination antipsychotic drug therapy On combination antipsychotic drug therapy 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 Post-traumatic stress disorder, chronic Constipation due to slow transit ADHD (attention deficit hyperactivity disorder) Bed wetting Vitamin D deficiency Surgical History History of toe surgery Left great toe Family History Unknown Unknown family medical history Family history unknown by caregiver Social History Smoking and tobacco/nicotine status: never used tobacco/nicotine Second hand smoke exposure: No Alcohol intake: never Substance/Drug Use: never Adopted: No Caregiver/support person: Yes Lives independently: No Household members: caregiver Housing: House Marital status: Single Number of children: 0 Number of grandchildren: 0 Highest education level completed: High School Graduate service: No Current occupational status: disabled Current occupational exposures/hazards: No Pets and animals: Yes Pets & animals: dog(s) Leisure activites: sports, art, music, games, fishing and volunteer work Sexually active: No Do you think of yourself as: Straight/Heterosexual Current gender identity: Male Special imer needs: No Vitals/I&O/Wt Last Vital Signs Temp 98.5 F 08/21/23 01:27 Pulse 106 H 08/21/23 04:50 Resp 22 H 08/21/23 04:50 BP 128/75 08/21/23 04:50 Pulse Ox 87 L 08/21/23 04:50 O2 Del Method Nasal Cannula 08/21/23 04:50 O2 Flow Rate 4 08/21/23 04:50 Weight last 48 hrs Weight 72.575 kg Physical Exam 2 Narrative: General: Patient is awake. Appears fatigued. Head: Normocephalic. Atraumatic. EOM intact. Neck: No JVD. Cardiovascular: RRR. No gallops. No murmurs. Lungs: Faint bibasilar rhonchi, no use of accessory muscles, no crackles or wheezes. On 5 L nasal cannula support. Skin: No jaundice. No rashes. Abdomen: Normal bowel sounds, abdomen soft and nontender. Genito Urinary: Genital exam not performed since complaints not related. Rectal: Rectal exam not performed since no symptoms indicated blood loss. Extremities: No cyanosis or clubbing. Musculoskeletal: No swollen or erythematous joints. Neurological: Moves all 4 extremities. No myoclonus. Data 08/21/23 02:32 08/21/23 02:32 A&P Assessment and plan (1) Pneumonia: Community-acquired pneumonia with acute hypoxic respiratory insufficiency Patient requiring 5 L nasal cannula Differential includes aspiration, will request speech therapy evaluation He only received 1 dose of the Levaquin Start ceftriaxone Start azithromycin Start Mucinex Schedule breathing treatments Pulmonary toilet Supplemental oxygen support Qualifiers: Pneumonia type: due to unspecified organism Laterality: bilateral Lung location: unspecified part of lung Qualified Code(s): J18.9 - Pneumonia, unspecified organism (2) Post-traumatic stress disorder, chronic: Continue home meds after update (3) ADHD (attention deficit hyperactivity disorder): Continue home meds after update (4) Insomnia: Continue home meds after update (5) Fragile X syndrome: Supportive care (6) Constipation due to slow transit: Continue bowel regimen Plan DVT prophylaxis: Lovenox CODE STATUS: Full code Attestations 2 Medical Necessity Statement*: Patient presents with worsening respiratory symptoms, found to have acute hypoxic respiratory insufficiency with community-acquired pneumonia with expected hospitalization not to cross 2 midnights for IV antibiotics, breathing treatments, and speech therapy evaluation. Coding Level of Care Code Acute Code for [facility] Fwd Diagnoses Pneumonia of both lungs due to infectious organism, unspecified part of lung J18.9 Pneumonia type: due to unspecified organism Laterality: bilateral Lung location: unspecified part of lung Post-traumatic stress disorder, chronic F43.12 ADHD (attention deficit hyperactivity disorder) F90.9 Insomnia G47.00 Fragile X syndrome Q99.2 Constipation due to slow transit K59.01
[2023-08-21] MEDS: ipratropium-albuterol 3 mL Neb 9 ML INHALATION (05:24)
[2023-08-21] MEDS: cefTRIAXone 2,000 MG in sodium chloride 0.9% (plus) 50 ML 100 MG IV (06:07)
[2023-08-21] MEDS: azithromycin 500 MG in sodium chloride 0.9% 250 ML 250 MG IV (06:39)
[2023-08-21] MEDS: enoxaparin 40 mg/0.4 mL Syringe SUBCUT (06:39)
[2023-08-21] MEDS: albuterol 2.5 mg/3 mL Neb INHALATION (07:26)
[2023-08-21] MEDS: guaiFENesin 600 mg Tablet 1200 MG PO ×2 (08:01→18:36)
[2023-08-21] MEDS: polyethylene glycol 3350 Pkt 17 gm PO ×2 (08:01→21:12)
[2023-08-21] MEDS: sennosides-docusate Tablet 2 TAB PO ×2 (08:01→18:37)
[2023-08-21] MEDS: cefTRIAXone 1,000 MG in sodium chloride 0.9% (plus) 50 ML 100 MG IV (08:02)
--- NOTE | 2023-08-21 08:43 | PC.PHAR ---
UNABLE TO ACCESS PTS CHART AT THIS TIME TO COMPLETE MED REC
--- NOTE | 2023-08-21 09:42 | P.PN_ITS ---
Subjective 2 Subjective: Patient is a new admit overnight. Patient seen and examined this morning, was in mild respiratory distress due to cough, reports having increased cough recently and feeling shortness of breath but no fever chest pain nausea vomiting or diarrhea. Medications: Reviewed: Yes Vitals/I&O/Wt Last Vital Signs Temp 98.4 F 08/21/23 07:31 Pulse 112 H 08/21/23 07:31 Resp 16 08/21/23 07:31 BP 109/67 08/21/23 07:31 Pulse Ox 99 08/21/23 07:31 O2 Del Method Simple Mask 08/21/23 07:31 O2 Flow Rate 4 08/21/23 07:26 08/20/23 08/21/23 08/21/23 22:59 06:59 14:59 Intake Total 300 / 300 Balance 300 / 300 Weight last 48 hrs Weight 72.575 kg Weight 74.571 kg Weight 72.575 kg Physical Exam 2 Narrative: He is alert awake oriented x 3 and comprehensive, in mild respiratory distress due to cough, Chest air entry equal on both sides, occasional scattered rhonchi heard Cardiovascular normal heart sounds no murmurs Abdominal soft NAD Extremities no edema noted Data 08/21/23 02:32 08/21/23 02:32 CXR: Radiologist's impression: IMPRESSION: 1. Improving aeration of the bilateral lung [place] with residual left basilar atelectasis. 2. Improving bilateral pleural effusions with likely minimal residual left pleural effusion. As compared to 08/20/2023 A&P Assessment and plan (1) Pneumonia: Community-acquired pneumonia with acute hypoxic respiratory insufficiency Continue IV ceftriaxone 1 g daily Will add IV azithromycin 500 mg daily Will also start IV methylprednisolone 40 mg daily DuoNebs every 8 hours Mucinex 1200 mg p.o. twice daily Continue supplemental oxygen at 2 L nasal cannula and keep saturation more than 90% Qualifiers: Pneumonia type: due to unspecified organism Laterality: bilateral Lung location: unspecified part of lung Qualified Code(s): J18.9 - Pneumonia, unspecified organism (2) Post-traumatic stress disorder, chronic: (3) ADHD (attention deficit hyperactivity disorder): (4) Insomnia: (5) Fragile X syndrome: (6) Constipation due to slow transit: (7) Asthma: Plan Resume home medications GI prophylaxis with IV Pepcid 20 mg every 12 hours DVT prophylaxis: Lovenox CODE STATUS: Full code Attestations 2 Medical Necessity Statement*: He needs continued hospitalization less than 2 days for worsening respiratory symptoms secondary to recent pneumonitis, needs treatment with IV antibiotics steroids supplemental oxygen and DuoNebs Time Spent in Patient Care: 20 minutes Coding Level of Care Code Acute Code for [facility] Fwd Diagnoses Pneumonia of both lungs due to infectious organism, unspecified part of lung J18.9 Pneumonia type: due to unspecified organism Laterality: bilateral Lung location: unspecified part of lung Post-traumatic stress disorder, chronic F43.12 ADHD (attention deficit hyperactivity disorder) F90.9 Insomnia G47.00 Fragile X syndrome Q99.2 Constipation due to slow transit K59.01 Asthma J45.909 Time Spent (min) 20
[2023-08-21] MEDS: methylPREDNISolone sod succ 40 mg/mL INJ IVP (10:29)
[2023-08-22] VITALS (10 sets, daily range): BP systolic 101–113; BP diastolic 63–78; PULSE 80–102; RESP 16–18; TEMP 36.8–36.9; O2SAT 87–95
[2023-08-22] MEDS: enoxaparin 40 mg/0.4 mL Syringe SUBCUT (05:38)
[2023-08-22 06:51] LABS: Basophils % 0.1 %; Hematocrit 44.7 % (37-53); Lymphocytes # 0.9 10^3/uL (0.8-4.8); Lymphocytes % 10.5 %; Mean Corpuscular Hemoglobin 31.4 pg (27-33); Mean Corpuscular Volume 98.2 fl (82-101); Mean Platelet Volume 9.8 fL (7.4-10.4); Monocytes # 0.6 10^3/uL (0.2-0.9); Monocytes % 7.2 %; Neutrophils # 7.16 10^3/uL (1.8-7.7); Neutrophils % 81.9 %; Nucleated Red Blood Cells % 0 %; Platelet Count 210 10^3/cmm (157-399); Red Blood Count 4.55 10^6/uL (3.85-5.65); Red Cell Distribution Width 12.7 % (12.1-15.1); White Blood Count 8.75 10^3/uL (3.29-11.43)
[2023-08-22 07:05] LABS: Anion Gap 16.4 (5-19); Blood Urea Nitrogen 13 mg/dL (6-20); Calcium 9.5 mg/dL (8.5-10.5); Carbon Dioxide 25 mmol/L (22-29); Chloride 107 mmol/L (98-107); Creatinine Clr Calc Pharmacy 171.8647; Glomerular Filtration Rate 157.1 mL/min (90-130); Glucose 94 mg/dL (65-115); Magnesium 2.3 mg/dL (1.7-2.3); Osmolality Calculated 298 mOsm/kg (285-295); Phosphorus 3.4 mg/dL (2.5-4.5); Potassium 4.4 mmol/L (3.5-5.1); Sodium 144 mmol/L (136-145)
[2023-08-22] MEDS: azithromycin 500 MG in sodium chloride 0.9% 250 ML 250 MG IV (08:00)
[2023-08-22] MEDS: sennosides-docusate Tablet 2 TAB PO (08:10)
[2023-08-22] MEDS: guaiFENesin 600 mg Tablet 1200 MG PO (08:11)
[2023-08-22] MEDS: polyethylene glycol 3350 Pkt 17 gm PO (08:12)
[2023-08-22] MEDS: methylPREDNISolone sod succ 40 mg/mL INJ IVP (08:13)
[2023-08-22] MEDS: ipratropium-albuterol 3 mL Neb INHALATION (08:24)
[2023-08-22] MEDS: cefTRIAXone 1,000 MG in sodium chloride 0.9% (plus) 50 ML 100 MG IV (09:32)
--- NOTE | 2023-08-22 11:27 | PM.DCS ---
Discharge Providers Date of Admission: 08/21/23 05:35 Date of Discharge: August 22, 2023 Attending Provider at Admission: Milton Echeverria MD Attending Provider at Discharge: Chitra Garcia MD Primary Care Provider: ARA Cullen Diagnoses at Discharge Discharge Diagnosis (1) Pneumonia: Status: Acute Qualifiers: Laterality: bilateral Lung location: unspecified part of lung Pneumonia type: due to unspecified organism Qualified Code(s): J18.9 - Pneumonia, unspecified organism (2) Post-traumatic stress disorder, chronic: Status: Acute (3) ADHD (attention deficit hyperactivity disorder): Status: Chronic (4) Insomnia: Status: Acute (5) Fragile X syndrome: Status: Chronic (6) Constipation due to slow transit: Status: Chronic (7) Asthma: Status: Acute Reason for Visit Reason for Visit: O2 Levels Low Brief History: Williams Dior is a 32 year old male with past medical history significant for Fragile X syndrome, myotonic muscular dystrophy, intellectual disability, ADHD, and recent pneumonia who presents to the emergency department with cough and shortness of breath. Patient is accompanied with one of his caregivers. She states he is been sick for about 2 to 3 days. Cough is mildly productive. She also noticed marked tachycardia which she reports is usually an indicator that he is ill. Patient was seen on 08/19 with complaints of cough, headache, and sore throat for several days. X-ray showed new atelectasis, edema, and/or pneumonitis in both mid and lower lungs with new small bilateral pleural effusions. He was treated with oral levofloxacin. She reports he only taken 1 dose of this so far. There is some concern for aspiration. Patient does endorse continued shortness of breath, headache, cough, and sore throat. Denies known fever. Denies alleviating or aggravating factors. Hospital Course Hospital Course he was diagnosed with Community-acquired pneumonia with acute hypoxic respiratory insufficiency started on Iv ceftriaxone and azithromycin, IV solumedrol and duonebs. he is feeling much better and ready to be discharged home. Physical Exam Narrative: He is alert awake oriented x 3 and comprehensive, in mild respiratory distress due to cough, Chest air entry equal on both sides, occasional scattered rhonchi heard Cardiovascular normal heart sounds no murmurs Abdominal soft NAD Extremities no edema noted Discharge Data Studies Completed and Pending Completed Studies During Hospitalization Category Date Time Status XR chest 1V portable [id number] Stat Exams 08/21/23 02:17 Completed Pending at discharge Category Date Time Status Bacterial Antigen Routine Lab 08/22/23 10:52 Received MRSA [Methicillin Resistant S.aureu] Routine Lab 08/21/23 08:08 Received Sputum Culture and Gram Stain Routine Lab 08/21/23 06:17 Uncollected Radiology Impressions Chest X-Ray 08/21/23 02:17 IMPRESSION: 1. Improving aeration of the bilateral lung mag[place] with residual left basilar atelectasis. 2. Improving bilateral pleural effusions with likely minimal residual left pleural effusion. Laboratory Results WBC 8.75 10^3/uL (3.29-11.43) 08/22/23 06:41 RBC 4.55 10^6/uL (3.85-5.65) 08/22/23 06:41 Hgb 14.30 g/dL (11.27-16.99) 08/22/23 06:41 Hct 44.7 % (37-53) 08/22/23 06:41 MCV 98.2 fl (82-101) 08/22/23 06:41 MCH 31.4 pg (27-33) 08/22/23 06:41 MCHC 32.0 g/dL (30-55) 08/22/23 06:41 RDW 12.7 % (12.1-15.1) 08/22/23 06:41 Plt Count 210 10^3/cmm (157-399) D 08/22/23 06:41 MPV 9.8 fL (7.4-10.4) 08/22/23 06:41 Neut % (Auto) 81.9 % 08/22/23 06:41 Lymph % (Auto) 10.5 % 08/22/23 06:41 [place] % (Auto) 7.2 % 08/22/23 06:41 Eos % (Auto) 0.0 % 08/22/23 06:41 Baso % (Auto) 0.1 % 08/22/23 06:41 Neut # (Auto) 7.16 10^3/uL (1.8-7.7) 08/22/23 06:41 Lymph # (Auto) 0.9 10^3/uL (0.8-4.8) 08/22/23 06:41 [place] # (Auto) 0.6 10^3/uL (0.2-0.9) 08/22/23 06:41 Eos # (Auto) 0.0 10^3/uL (0.0-0.8) 08/22/23 06:41 Baso # (Auto) 0.0 10^3/uL (0.0-0.1) 08/22/23 06:41 Nucleated RBC % (auto) 0 % 08/22/23 06:41 Nucleated RBCs # 0.0 /100WBC 08/22/23 06:41 D-Dimer 0.40 ug/mLFEU (0-0.59) 08/21/23 02:32 Sodium 144 mmol/L (136-145) 08/22/23 06:41 Potassium 4.4 mmol/L (3.5-5.1) 08/22/23 06:41 Chloride 107 mmol/L (98-107) 08/22/23 06:41 Carbon Dioxide 25 mmol/L (22-29) 08/22/23 06:41 Anion Gap 16.4 (5-19) 08/22/23 06:41 BUN 13 mg/dL (6-20) 08/22/23 06:41 Creatinine 0.6 mg/dL (0.7-1.2) L 08/22/23 06:41 GFR Calculation 157.1 mL/min (90-130) H 08/22/23 06:41 Glucose 94 mg/dL (65-115) 08/22/23 06:41 Calculated Osmolality 298 mOsm/kg (285-295) H 08/22/23 06:41 Lactic Acid 0.7 mmol/L (0.5-2.2) 08/21/23 02:32 Calcium 9.5 mg/dL (8.5-10.5) 08/22/23 06:41 Phosphorus 3.4 mg/dL (2.5-4.5) 08/22/23 06:41 Magnesium 2.3 mg/dL (1.7-2.3) 08/22/23 06:41 Total Bilirubin 0.4 mg/dL (0.15-1.2) 08/21/23 02:32 AST 22 U/L (0-40) 08/21/23 02:32 ALT 18 U/L (0-41) 08/21/23 02:32 Alkaline Phosphatase 90 U/L (40-130) 08/21/23 02:32 Total Protein 6.9 g/dL (6.6-8.7) 08/21/23 02:32 Albumin 3.9 g/dL (3.5-5.2) 08/21/23 02:32 Globulin 3.0 g/dL (1.3-4.6) 08/21/23 02:32 Procalcitonin 0.08 ng/mL (0-0.5) 08/21/23 02:32 Vitals Last Vital Signs Temp 98.5 F 08/22/23 11:20 Pulse 96 08/22/23 11:20 Resp 16 08/22/23 11:20 BP 105/71 08/22/23 11:20 Pulse Ox 90 08/22/23 11:20 O2 Del Method Room Air 08/22/23 11:20 O2 Flow Rate 2 08/22/23 08:24 Discharge Plan Discharge Patient Disposition: Home Condition: Stable Prescriptions: New ipratropium-albuterol 0.5 mg-3 mg(2.5 mg base)/3 mL Solution For Nebulization 3 ml inhalation 2XD 7 Days Qty: 14 0RF Medrol (Olvin) 4 mg tablets,dose pack See Rx Instructions .ROUTE .COMPLEX Qty: 21 0RF Rx Instructions: orally per package directions Continued acetaminophen [Tylenol] 325 mg capsule 325 mg PO Q6H PRN (Reason: pain or fever) Qty: 30 0RF Antacid (calcium carbonate) 200 mg calcium (500 mg) tablet,chewable See Rx Instructions .ROUTE .COMPLEX Qty: 60 5RF Dose Instruction: chew AND swallow TWO tablets BY MOUTH DAILY Rx Instructions: chew AND swallow TWO tablets BY MOUTH DAILY cholecalciferol (vitamin D3) 25 mcg (1,000 unit) tablet 1,000 unit PO DAILY Qty: 30 5RF guaifenesin [Mucinex] 600 mg tablet extended release 12hr 600 mg PO Q12H Qty: 60 5RF magnesium hydroxide [Milk of Magnesia] 400 mg/5 mL suspension 15 ml PO BID PRN (Reason: constipation) Qty: 3000 0RF Rx Instructions: use till stooling no more than 3 days then PRN Miralax 17 gram/dose powder 17 g PO Q12H 30 Days Qty: 1020 5RF Senna-S 8.6-50 mg tablet 2 tab-cap PO BID Qty: 60 5RF Rx Instructions: 2 tablet bid prn if no BM x 3 days, QS Seroquel 200 mg tablet 200 mg PO BID@0800,2000 Qty: 60 5RF fluticasone propionate [Flonase Allergy Relief] 50 mcg/actuation spray,suspension 1 spray intranasal BID PRN (Reason: nasal congestion) Qty: 16 0RF Rx Instructions: administer into each nostril albuterol sulfate 2.5 mg /3 mL (0.083 %) solution for nebulization 2.5 mg inhalation Q4H PRN (Reason: shortness of breath or wheezing) Qty: 180 2RF One-A-Day 400 mcg- 25 mg tablet,chewable 1 tab PO DAILY Qty: 30 2RF chlorhexidine gluconate [Peridex] 0.12 % mouthwash 15 ml buccal BID Qty: 600 5RF trazodone 100 mg tablet 100 mg PO .HS Qty: 30 5RF levofloxacin 500 mg tablet 500 mg PO DAILY Qty: 7 0RF Discontinued (DME) nebulizers [facility] See Rx Instructions .ROUTE .MEDSUPPLY Qty: 1 0RF Rx Instructions: As directed Discharge Orders: Discharge Order (Routine); Ordered 08/22/23 Ordered By: Chitra Garcia Other Ambulatory Orders: DME: Oxygen (Order) Location: None Selected Ordered By: Chitra Garcia [place] [facility] [place] Kana Mora, INTERVENTIONAL RADIOLOGY TECHNOLOGIST[employer] [Primary Care Provider] - (We have notified your physician's clinic of the need for a follow-up appointment to be scheduled. If you have not heard from them within the next 2 business days, please call them directly. ) Discharge Diet: Regular Discharge Activity: Increase activity as tolerated Patient Instructions: Ipratropium (By breathing), Methylprednisolone (By mouth) (Medrol, Medrol Dosepak), Asthma (DC), Bacterial Pneumonia (DC), Opioid Safety Activity Restrictions/Additional Instructions: follow up PCP in 1 week Discharge Attestations Time Spent in Discharge Care*: less than 30 min Quality Metrics Clinical Quality Measures [ No reported AMI, CVA or VTE this stay] Coding Level of Care Code Acute Code for Chg Fwd Diagnoses Pneumonia of both lungs due to infectious organism, unspecified part of lung J18.9 Laterality: bilateral Lung location: unspecified part of lung Pneumonia type: due to unspecified organism Post-traumatic stress disorder, chronic F43.12 ADHD (attention deficit hyperactivity disorder) F90.9 Insomnia G47.00 Fragile X syndrome Q99.2 Constipation due to slow transit K59.01 Asthma J45.909 Time Spent (min) 20
[2023-08-22 14:34] LABS: Methicillin-Resist S.aureu PCR NOT DETECTED (NOT DETECTED)
--- NOTE | 2023-08-29 03:47 | ED_ITS ---
HPI - SOB/Dyspnea 2 General: Chief Complaint: Shortness of Breath/Dyspnea Stated Complaint: O2 Levels Low Time Seen by Provider: 08/21/23 02:00 History of Present Illness: HPI Narrative: 32-year-old male presents emergency depa rtment with his caregiver. Patient is developmentally delayed with decreased cognitive function (fragile X syndrome). Family states that the patient was recently diagnosed with pneumonia 1 day prior to presenting to the emergency department today. They state that the patient received a chest x-ray and were told that the patient had pneumonia at that time. The family member states that they checked the patient's pulse ox while he was sleeping approximately 1 hour prior to arrival and stated that the oxygen saturation was at 82%. The caregiver states that the patient was prescribed Levaquin for his pneumonia and has had a single dose of that prescribed antibiotic. The family member states that they feel that the patient has increased work of breathing and shortness of breath, and worsening cough. On initial presentation the oxygen saturation on room air was 88%. Patient was immediately placed on supplemental oxygen at 3 L nasal cannula and had improvement of his oxygen saturation to approximately 91%. Related Data: Home oxygen amount: none Review of Systems 2 General: Reports: 10 or more systems reviewed and unremarkable except in HPI and below Resp: Reports: dyspnea, productive cough and wheezing PFSH ED 2 PFSH: Medical History Asthma Fragile X syndrome Gingiva disorder Insomnia Psychiatric care On combination antipsychotic drug therapy On combination antipsychotic drug therapy 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 Post-traumatic stress disorder, chronic Constipation due to slow transit ADHD (attention deficit hyperactivity disorder) Bed wetting Vitamin D deficiency Surgical History History of toe surgery Left great toe Family History Unknown Unknown family medical history Family history unknown by caregiver Social History Smoking and tobacco/nicotine status: never used tobacco/nicotine Second hand smoke exposure: No Alcohol intake: never Substance/Drug Use: never Adopted: No Caregiver/support person: Yes Lives independently: No Household members: caregiver Housing: House Marital status: Single Number of children: 0 Number of grandchildren: 0 Highest education level completed: High School Graduate service: No Current occupational status: disabled Current occupational exposures/hazards: No Pets and animals: Yes Pets & animals: dog(s) Leisure activites: sports, art, music, games, fishing and volunteer work Sexually active: No Do you think of yourself as: Straight/Heterosexual Current gender identity: Male Special imer needs: No Physical Exam 2 Narrative: EXAM NARRATIVE: General: Alert, mild respiratory distress, frail-appearing,. Skin: Warm, dry, Intact. Head: Normocephalic, atraumatic. Neck: Supple, trachea midline. Eye: Extraocular movements are intact. PERRLA Ears, nose, mouth and throat: mucosa moist. Cardiovascular: Regular, Normal peripheral perfusion. Gastrointestinal: Soft, Nontender, Non distended, Normal bowel sounds. Musculoskeletal: Normal ROM, no deformity. Neurological: Alert, moves all extremities, Psychiatric: Cooperative, calm Respiratory: Increased work of breathing, bibasilar rhonchi noted. Requiring supplemental oxygen via nasal cannula, Symmetrical chest wall expansion. Course 2 Vital Signs: Vital signs: Vital Signs Temperature 98.5 F 08/22/23 15:19 Pulse Rate 96 08/22/23 15:19 Respiratory Rate 16 08/22/23 15:19 Blood Pressure 105/71 08/22/23 15:19 Pulse Oximetry 90 08/22/23 15:19 Oxygen Delivery Me thod Room Air 08/22/23 11:20 Oxygen Flow Rate 4 08/22/23 11:43 MDM - SOB/Dyspnea Medical Decision Making Physical exam completed and documented I did obtain a CBC CMP chest x-ray provided supplemental oxygen and IV antibiotics as well as procalcitonin and lactic acid and blood cultures. I have contacted hospitalist physician and requested admission to the hospital for additional evaluation treatment and care given the patient's failed outpatient antibiotic therapy and worsening oxygen saturation and increased O2 supplemental oxygen demand. Medical Records I reviewed the patient's medical records. Lab Data I reviewed the patient's lab results. 08/22/23 06:41 08/22/23 06:41 Labs/Radiology: Radiology Impressions Chest X-Ray 08/21/23 02:17 IMPRESSION: 1. Improving aeration of the bilateral lung magaña with residual left basilar atelectasis. 2. Improving bilateral pleural effusions with likely minimal residual left pleural effusion. Laboratory Results WBC 4.55 10^3/uL (3.29-11.43) 08/21/23 02:32 RBC 4.36 10^6/uL (3.85-5.65) 08/21/23 02:32 Hgb 13.70 g/dL (11.27-16.99) 08/21/23 02:32 Hct 42.5 % (37-53) 08/21/23 02:32 MCV 97.5 fl (82-101) 08/21/23 02:32 MCH 31.4 pg (27-33) 08/21/23 02:32 MCHC 32.2 g/dL (30-55) 08/21/23 02:32 RDW 13.0 % (12.1-15.1) 08/21/23 02:32 Plt Count 149 10^3/cmm (157-399) L 08/21/23 02:32 MPV 10.0 fL (7.4-10.4) 08/21/23 02:32 Neut % (Auto) 65.1 % 08/21/23 02:32 Lymph % (Auto) 24.2 % 08/21/23 02:32 Nuckolls % (Auto) 9.0 % 08/21/23 02:32 Eos % (Auto) 0.9 % 08/21/23 02:32 Baso % (Auto) 0.4 % 08/21/23 02:32 Neut # (Auto) 2.96 10^3/uL (1.8-7.7) 08/21/23 02:32 Lymph # (Auto) 1.1 10^3/uL (0.8-4.8) 08/21/23 02:32 Nuckolls # (Auto) 0.4 10^3/uL (0.2-0.9) 08/21/23 02:32 Eos # (Auto) 0.0 10^3/uL (0.0-0.8) 08/21/23 02:32 Baso # (Auto) 0.0 10^3/uL (0.0-0.1) 08/21/23 02:32 Nucleated RBC % (auto) 0 % 08/21/23 02:32 Nucleated RBCs # 0.0 /100WBC 08/21/23 02:32 D-Dimer 0.40 ug/mLFEU (0-0.59) 08/21/23 02:32 Sodium 143 mmol/L (136-145) 08/21/23 02:32 Potassium 4.5 mmol/L (3.5-5.1) 08/21/23 02:32 Chloride 105 mmol/L (98-107) 08/21/23 02:32 Carbon Dioxide 28 mmol/L (22-29) 08/21/23 02:32 Anion Gap 14.5 (5-19) 08/21/23 02:32 BUN 14 mg/dL (6-20) 08/21/23 02:32 Creatinine 0.7 mg/dL (0.7-1.2) 08/21/23 02:32 GFR Calculation 131.5 mL/min (90-130) H 08/21/23 02:32 Glucose 88 mg/dL (65-115) 08/21/23 02:32 Calculated Osmolality 296 mOsm/kg (285-295) H 08/21/23 02:32 Lactic Acid 0.7 mmol/L (0.5-2.2) 08/21/23 02:32 Calcium 9.3 mg/dL (8.5-10.5) 08/21/23 02:32 Total Bilirubin 0.4 mg/dL (0.15-1.2) 08/21/23 02:32 AST 22 U/L (0-40) 08/21/23 02:32 ALT 18 U/L (0-41) 08/21/23 02:32 Alkaline Phosphatase 90 U/L (40-130) 08/21/23 02:32 Total Protein 6.9 g/dL (6.6-8.7) 08/21/23 02:32 Albumin 3.9 g/dL (3.5-5.2) 08/21/23 02:32 Globulin 3.0 g/dL (1.3-4.6) 08/21/23 02:32 Procalcitonin 0.08 ng/mL (0-0.5) 08/21/23 02:32 All radiology interpretation(s) finalized by discharge Discharge Plan Discharge Patient Disposition: Admitted As Inpatient Admit Provider: Milton Echeverria Clinical Impression: Respiratory failure with hypoxia, Pneumonia Condition: Stable Discharge Diet: Regular Discharge Activity: Increase activity as tolerated Coding Level of Care Code ED Manager Process Improvement for Erika Alvarez
== END 2023-08-22 14:00 | disposition home or self-care (01) ==
LOC: ER 02:00 → MEDSURG 05:35
PROVIDERS: Admitting Provider Internal Medicine; Emergency Provider Internal Medicine; PCP Nurse Practitioner; Visit Provider Internal Medicine
DX: J18.9 Pneumonia, unspecified organism (principal); F43.12 Post-traumatic stress disorder, chronic; F90.9 Attention-deficit hyperactivity disorder, unspecified type; G47.00 Insomnia, unspecified; Q99.2 Fragile X chromosome; K59.01 Slow transit constipation; J45.909 Unspecified asthma, uncomplicated; F79 Unspecified intellectual disabilities; J90 Pleural effusion, not elsewhere classified
CPT/HCPCS: 36415; 71045; 80048; 80053; 83605; 83735; 84100; 84145; 85025; 85378; 86403; 87641; 92610; 93005; 94640; 94664; 94760; 96365; 96367; 96372; 96375; 99285; G0378; J0456; J0696; J1650; J2920; J7050; J7613

== ENCOUNTER 2023-08-28 16:54 | Inpatient (IN) | payer MEDICAID, SELFPAY ==
[2023-08-28] VITALS (10 sets, daily range): BP systolic 112–120; BP diastolic 66–80; PULSE 103–122; RESP 15–24; TEMP 36.3–36.7; O2SAT 91–99
--- NOTE | 2023-08-28 17:12 | XRR_ITS ---
PROCEDURE INFORMATION: Exam: XR Chest Exam date and time: 08/28/2023 5:36 PM Age: 32 years old Clinical indication: Cough and dyspnea; Additional info: Dyspnea/cough TECHNIQUE: Imaging protocol: Radiologic exam of the chest. Views: 1 view. COMPARISON: CR (CHEST, ) 08/21/2023 2:23 AM FINDINGS: Lungs: No focal consolidation. Elevation of the left hemidiaphragm with left basilar subsegmental atelectasis. Pleural spaces: No evidence of pneumothorax. A small left-sided pleural effusion would be difficult to exclude. Heart/Mediastinum: Cardiomediastinal silhouette is within normal limits. Bones/joints: No evidence of acute osseous abnormality. XR/XR chest 1V portable [id number] IMPRESSION: 1. Chronic elevation of the left hemidiaphragm with left basilar subsegmental atelectasis. A small left-sided pleural effusion would be difficult to exclude.
--- NOTE | 2023-08-28 17:20 | ED_ITS ---
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 Post-traumatic stress disorder, chronic Constipation due to slow transit ADHD (attention deficit hyperactivity disorder) Bed wetting Vitamin D deficiency Surgical History History of toe surgery Left great toe Family History Unknown Unknown family medical history Family history unknown by caregiver Social History Smoking and tobacco/nicotine status: never used tobacco/nicotine Second hand smoke exposure: No Alcohol intake: never Substance/Drug Use: never Adopted: No Caregiver/support person: Yes Lives independently: No Household members: caregiver Housing: House Marital status: Single Number of children: 0 Number of grandchildren: 0 Highest education level completed: High School Graduate service: No Current occupational status: disabled Current occupational exposures/hazards: No Pets and animals: Yes Pets & animals: dog(s) Leisure activites: sports, art, music, games, fishing and volunteer work Sexually active: No Do you think of yourself as: Straight/Heterosexual Current gender identity: Male Special imer needs: No Course Vital Signs: Vital signs: Vital Signs Temperature 97.4 F L 08/28/23 16:59 Pulse Rate 112 H 08/28/23 16:59 Respiratory Rate 15 08/28/23 16:59 Blood Pressure 120/80 08/28/23 16:59 Pulse Oximetry 91 08/28/23 16:59 Oxygen Delivery Me thod Nasal Cannula 08/28/23 16:59 Oxygen Flow Rate 4 08/28/23 16:59 Discharge Plan Discharge Condition: Stable Prescriptions: No Action acetaminophen [Tylenol] 325 mg capsule 325 mg PO Q6H PRN (Reason: pain or fever) Qty: 30 0RF Antacid (calcium carbonate) 200 mg calcium (500 mg) tablet,chewable See Rx Instructions .ROUTE .COMPLEX Qty: 60 5RF Dose Instruction: chew AND swallow TWO tablets BY MOUTH DAILY Rx Instructions: chew AND swallow TWO tablets BY MOUTH DAILY cholecalciferol (vitamin D3) 25 mcg (1,000 unit) tablet 1,000 unit PO DAILY Qty: 30 5RF guaifenesin [Mucinex] 600 mg tablet extended release 12hr 600 mg PO Q12H Qty: 60 5RF magnesium hydroxide [Milk of Magnesia] 400 mg/5 mL suspension 15 ml PO BID PRN (Reason: constipation) Qty: 3000 0RF Rx Instructions: use till stooling no more than 3 days then PRN Miralax 17 gram/dose powder 17 g PO Q12H 30 Days Qty: 1020 5RF Senna-S 8.6-50 mg tablet 2 tab-cap PO BID Qty: 60 5RF Rx Instructions: 2 tablet bid prn if no BM x 3 days, QS Seroquel 200 mg tablet 200 mg PO BID@0800,2000 Qty: 60 5RF fluticasone propionate [Flonase Allergy Relief] 50 mcg/actuation spray,suspension 1 spray intranasal BID PRN (Reason: nasal congestion) Qty: 16 0RF Rx Instructions: administer into each nostril budesonide [Pulmicort] 0.5 mg/2 mL suspension for nebulization 0.5 mg inhalation BID Qty: 120 2RF ipratropium-albuterol 0.5 mg-3 mg(2.5 mg base)/3 mL solution for nebulization 3 ml inhalation Q4H PRN (Reason: shortness of breath or wheezing) Qty: 180 2RF (DME) Disposable nebulizer circuit with mask See Rx Instructions .ROUTE .MEDSUPPLY Qty: 1 2RF Rx Instructions: As directed One-A-Day 400 mcg- 25 mg tablet,chewable 1 tab PO DAILY Qty: 30 2RF chlorhexidine gluconate [Peridex] 0.12 % mouthwash 15 ml buccal BID Qty: 600 5RF trazodone 100 mg tablet 100 mg PO .HS Qty: 30 5RF Medrol (Olvin) 4 mg tablets,dose pack See Rx Instructions .ROUTE .COMPLEX Qty: 21 0RF Rx Instructions: orally per package directions levofloxacin 500 mg tablet 500 mg PO DAILY Qty: 7 0RF Referrals: Kana Mora, WEBSITE OPTIMIZATION STRATEGIST-C [Primary Care Provider] - Coding Level of Care Code ED Ornamental Metal Worker for Erika Alvarez
--- NOTE | 2023-08-28 17:41 | W.ED.GENADLT ---
Documented by User: Dano Junior DO 08/29/23 05:24 HPI - General Adult General: Chief complaint: Back Pain/Injury Stated complaint: upper back pains Time Seen by Provider: 08/28/23 17:11 History of Present Illness: 32-year-old male presents to the emergency room with caregiver. Recently hospitalized for pneumonia. Was hospitalized for 2 days then discharged home with oxygen. Today she noted increasing shortness of breath and requiring increasing his oxygen on arrival here he is satting in the low 90s on 4 L he was discharged home on 2 L. Patient has developmental delay and is difficult to get any history from denies chest pain or abdominal pain. Mom has not noted a fever they have been using nebulizer at home every 4 hours he continues to have shortness of breath. Onset (ago): day(s) Relieving factors: none Exacerbating factors: none Associated symptoms: Reports cough, dyspnea and short of breath; Deny chest pain, confusion, diaphoresis, decreased appetite, fevers/chills, headache(s), malaise, nausea, rash, palpitations, seizures, syncope, vomiting or weakness Review of Systems Const: Denies: malaise or diaphoresis Card: Denies: chest pain, palpitations or syncope Resp: Reports: dyspnea, productive cough and wheezing GI: Denies: nausea or vomiting : Denies: dysuria, urinary frequency or urinary urgency Musc: Denies: neck pain or back pain Skin/Breast: Denies: rash Neuro: Denies: headache(s) or confusion PFSH ED PFSH: Medical History Asthma Fragile X syndrome Gingiva disorder Insomnia Psychiatric care On combination antipsychotic drug therapy On combination antipsychotic drug therapy 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 Post-traumatic stress disorder, chronic Constipation due to slow transit ADHD (attention deficit hyperactivity disorder) Bed wetting Vitamin D deficiency Surgical History History of toe surgery Left great toe Family History Unknown Unknown family medical history Family history unknown by caregiver Social History Smoking and tobacco/nicotine status: never used tobacco/nicotine Second hand smoke exposure: No Alcohol intake: never Substance/Drug Use: never Adopted: No Caregiver/support person: Yes Lives independently: No Household members: caregiver Housing: House Marital status: Single Number of children: 0 Number of grandchildren: 0 Highest education level completed: High School Graduate service: No Current occupational status: disabled Current occupational exposures/hazards: No Pets and animals: Yes Pets & animals: dog(s) Leisure activites: sports, art, music, games, fishing and volunteer work Sexually active: No Do you think of yourself as: Straight/Heterosexual Current gender identity: Male Special imer needs: No Physical Exam Const: COMMON NORMALS: no acute distress GENERAL APPEARANCE: cooperative and comfortable ORIENTATION/CONSCIOUSNESS: Yes awake, Yes oriented to person, Yes oriented to place and Yes oriented to time HENMT: COMMON NORMALS: normocephalic, atraumatic and hearing grossly normal bilaterally HEAD & SCALP: normocephalic and atraumatic Resp: COMMON NORMALS: normal respiratory effort, No retractions and No use of accessory muscles AUSCULTATION: wheezes and breath sounds absent on th left (Lower) Cardio: COMMON NORMALS: regular rhythm and No murmurs present (Cardio) RATE: tachycardic RHYTHM: regular rhythm GI: COMMON NORMALS: Soft to palpation and No hepatosplenomegaly present AUSCULTATION: Yes normoactive bowel sounds PALPATION: Yes Soft to palpation, No Tenderness to palpation present (GI), No Guarding due to palpation present (GI) and Yes No hepatosplenomegaly present Extremity: COMMON NORMALS: normal to inspection, capillary refill normal, no clubbing, cyanosis or edema, no calf tenderness and no pedal edema Neuro: SENSORIUM/ORIENTATION: Yes oriented to person, Yes oriented to place and Yes oriented to time Skin: COMMON NORMALS: no rashes or lesions noted GENERAL SKIN EXAM: no rashes or lesions noted Course Vital Signs: Vital signs: Vital Signs Temperature 98.1 F 08/29/23 04:00 Pulse Rate 90 08/29/23 04:00 Respiratory Rate 18 08/29/23 04:00 Blood Pressure 105/68 08/29/23 04:00 Pulse Oximetry 92 08/29/23 04:00 Oxygen Delivery Me thod Nasal Cannula 08/29/23 04:00 Oxygen Flow Rate 3 08/29/23 04:00 MDM - General Adult Medical Decision Making Care signed out to Dr. Duron at change of shift. See final notes for diagnosis and disposition. I have discussed the patient's case with the off going physician <Dr. Junior> and I have assumed care of the patient. We have discussed the current lab/radiographic results that have been resulted and the pending tests. Patient was recently hospitalized she does have increased work of breathing and increased oxygen requirement to maintain her O2 sats she is requiring 4 L nasal cannula. She does have an elevated white blood cell count of 15.1 she does appear to be hemoconcentrated with a hemoglobin of 17.5 hematocrit of 55.2 Lab Data 08/29/23 03:26 08/29/23 03:26 Radiology Impressions Chest X-Ray 08/28/23 17:12 IMPRESSION: 1. Chronic elevation of the left hemidiaphragm with left basilar subsegmental atelectasis. A small left-sided pleural effusion would be difficult to exclude. Chest CT 08/28/23 22:48 IMPRESSION: 1. Near-complete opacification of the left lower lobe, likely combination of chronic atelectasis and superimposed infiltrate. 2. No definite pleural effusion or evidence of empyema, but evaluation is somewhat limited without IV contrast. Laboratory Results WBC 15.16 10^3/uL (3.29-11.43) H 08/28/23 17: RBC 5.61 10^6/uL (3.85-5.65) 08/28/23 17: Hgb 17.50 g/dL (11.27-16.99) H 08/28/23 17: Hct 55.2 % (37-53) H 08/28/23 17: MCV 98.4 fl (82-101) 08/28/23 17: MCH 31.2 pg (27-33) 08/28/23 17: MCHC 31.7 g/dL (30-55) 08/28/23: RDW 13.0 % (12.1-15.1) 08/28/23 17: Plt Count 280 10^3/cmm (157-399) 08/28/23 17: MPV 9.9 fL (7.4-10.4) 08/28/23:22 Neut % (Auto) 80.2 % 08/28/23 17:22 Lymph % (Auto) 11.7 % 08/28/23 17:22 [place] % (Auto) 3.9 % 08/28/23 17: Eos % (Auto) 0.1 % 08/28/23 17:22 Baso % (Auto) 0.5 % 08/28/23 17:22 Neut # (Auto) 12.17 10^3/uL (1.8-7.7) H 08/28/23 17:22 Lymph # (Auto) 1.8 10^3/uL (0.8-4.8) 08/28/23 17:22 [place] # (Auto) 0.6 10^3/uL (0.2-0.9) 08/28/23 17: Eos # (Auto) 0.0 10^3/uL (0.0-0.8) 08/28/23 17: Baso # (Auto) 0.1 10^3/uL (0.0-0.1) 08/28/23 17: Nucleated RBC % (auto) 0 % 08/28/23 17: Nucleated RBCs # 0.0 /100WBC 08/28/23 17: D-Dimer 1.10 ug/mLFEU (0-0.59) H 08/28/23 15:22 Sodium 144 mmol/L (136-145) 08/28/23 17:22 Potassium 4.1 mmol/L (3.5-5.1) 08/28/23 17:22 Chloride 102 mmol/L (98-107) 08/28/23 17:22 Carbon Dioxide 32 mmol/L (22-29) H 08/28/23 17:22 Anion Gap 14.1 (5-19) 08/28/23 17:22 BUN 16 mg/dL (6-20) 08/28/23 17:22 Creatinine 0.7 mg/dL (0.7-1.2) 08/28/23 17:22 GFR Calculation 131.5 mL/min (90-130) H 08/28/23 17:22 Glucose 134 mg/dL (65-115) H 08/28/23 17:22 Calculated Osmolality 301 mOsm/kg (285-295) H 08/28/23 17:22 Lactic Acid 1.8 mmol/L (0.5-2.2) 08/28/23 17: Calcium 10.2 mg/dL (8.5-10.5) 08/28/23 17: Total Bilirubin 0.2 mg/dL (0.15-1.2) 08/28/23 17: AST 20 U/L (0-40) 08/28/23 17: ALT 16 U/L (0-41) 08/28/23 17: Alkaline Phosphatase 100 U/L (40-130) 08/28/23 17: NT-Pro-B Natriuret Pep < 36 pg/mL (0-125) 08/28/23 17: Total Protein 8.1 g/dL (6.6-8.7) 08/28/23: Albumin 4.4 g/dL (3.5-5.2) 08/28/23: Globulin 3.7 g/dL (1.3-4.6) 08/28/23 17: Urine Color Yellow (Yellow) 08/28/23 20:04 Urine Appearance Clear (CLEAR) 08/28/23 20:04 Urine pH 6 (5-7) 08/28/23 20:04 Ur Specific [place] 1.020 (1.005-1.030) 08/28/23 20:04 Urine Protein Neg (Negative) 08/28/23 20:04 Urine Glucose (UA) Norm (Normal) 08/28/23 20:04 Urine Ketones 1+ (Negative) H 08/28/23 20:04 Urine Blood Neg (Negative) 08/28/23 20:04 Urine Nitrate Negative (Negative) 08/28/23 20:04 Urine Bilirubin Neg (Negative) 08/28/23 20:04 Urine Urobilinogen Neg mg/dL (Negative) 08/28/23 20:04 Ur Leukocyte Esterase Negative (Negative) 08/28/23 20:04 Discharge Plan Discharge Patient Disposition: Admitted As Inpatient Admit Provider: Stephanie Rush Clinical Impression: Acute and chronic respiratory failure with hypoxia, Pneumonia Condition: Stable Coding Level of Care Code ED Rn Testing for Chg Fwd Documented by User: Jose Duron MD 08/28/23 20:50 HPI - General Adult General: Chief complaint: Back Pain/Injury Stated complaint: upper back pains Time Seen by Provider: 08/28/23 17:11 PFSH ED PFSH: Medical History Asthma Fragile X syndrome Gingiva disorder Insomnia Psychiatric care On combination antipsychotic drug therapy On combination antipsychotic drug therapy 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 Post-traumatic stress disorder, chronic Constipation due to slow transit ADHD (attention deficit hyperactivity disorder) Bed wetting Vitamin D deficiency Surgical History History of toe surgery Left great toe Family History Unknown Unknown family medical history Family history unknown by caregiver Social History Smoking and tobacco/nicotine status: never used tobacco/nicotine Second hand smoke exposure: No Alcohol intake: never Substance/Drug Use: never Adopted: No Caregiver/support person: Yes Lives independently: No Household members: caregiver Housing: House Marital status: Single Number of children: 0 Number of grandchildren: 0 Highest education level completed: High School Graduate service: No Current occupational status: disabled Current occupational exposures/hazards: No Pets and animals: Yes Pets & animals: dog(s) Leisure activites: sports, art, music, games, fishing and volunteer work Sexually active: No Do you think of yourself as: Straight/Heterosexual Current gender identity: Male Special imer needs: No Course Vital Signs: Vital signs: Vital Signs Temperature 98.1 F 08/29/23 04:00 Pulse Rate 90 08/29/23 04:00 Respiratory Rate 18 08/29/23 04:00 Blood Pressure 105/68 08/29/23 04:00 Pulse Oximetry 92 08/29/23 04:00 Oxygen Delivery Me thod Nasal Cannula 08/29/23 04:00 Oxygen Flow Rate 3 08/29/23 04:00 MDM - General Adult Medical Decision Making I have discussed the patient's case with the off going physician <Dr. Junior> and I have assumed care of the patient. We have discussed the current lab/radiographic results that have been resulted and the pending tests. Patient was recently hospitalized she does have increased work of breathing and increased oxygen requirement to maintain her O2 sats she is requiring 4 L nasal cannula. She does have an elevated white blood cell count of 15.1 she does appear to be hemoconcentrated with a hemoglobin of 17.5 hematocrit of 55.2 Differential Diagnosis Pneumonia, CHF, atelectasis, Medical Records I reviewed the patient's medical records. Lab Data I reviewed the patient's lab results. 08/29/23 03:26 08/29/23 03:26 Radiology Impressions Chest X-Ray 08/28/23 17:12 IMPRESSION: 1. Chronic elevation of the left hemidiaphragm with left basilar subsegmental atelectasis. A small left-sided pleural effusion would be difficult to exclude. Chest CT 08/28/23 22:48 IMPRESSION: 1. Near-complete opacification of the left lower lobe, likely combination of chronic atelectasis and superimposed infiltrate. 2. No definite pleural effusion or evidence of empyema, but evaluation is somewhat limited without IV contrast. Laboratory Results WBC 15.16 10^3/uL (3.29-11.43) H 08/28/23 17: RBC 5.61 10^6/uL (3.85-5.65) 08/28/23 17: Hgb 17.50 g/dL (11.27-16.99) H 08/28/23 17: Hct 55.2 % (37-53) H 08/28/23 17: MCV 98.4 fl (82-101) 08/28/23 17: MCH 31.2 pg (27-33) 08/28/23 17: MCHC 31.7 g/dL (30-55) 08/28/23 17: RDW 13.0 % (12.1-15.1) 08/28/23 17: Plt Count 280 10^3/cmm (157-399) 08/28/23 17: MPV 9.9 fL (7.4-10.4) 08/28/23 17: Neut % (Auto) 80.2 % 08/28/23 17: Lymph % (Auto) 11.7 % 08/28/23 17: [place] % (Auto) 3.9 % 08/28/23 17: Eos % (Auto) 0.1 % 08/28/23 17: Baso % (Auto) 0.5 % 08/28/23 17: Neut # (Auto) 12.17 10^3/uL (1.8-7.7) H 08/28/23 17:22 Lymph # (Auto) 1.8 10^3/uL (0.8-4.8) 08/28/23 17: [place] # (Auto) 0.6 10^3/uL (0.2-0.9) 08/28/23 17: Eos # (Auto) 0.0 10^3/uL (0.0-0.8) 08/28/23 17: Baso # (Auto) 0.1 10^3/uL (0.0-0.1) 08/28/23 17: Nucleated RBC % (auto) 0 % 08/28/23 17: Nucleated RBCs # 0.0 /100WBC 08/28/23 17: D-Dimer 1.10 ug/mLFEU (0-0.59) H 08/28/23 15:22 Sodium 144 mmol/L (136-145) 08/28/23 17:22 Potassium 4.1 mmol/L (3.5-5.1) 08/28/23 17:22 Chloride 102 mmol/L (98-107) 08/28/23 17: Carbon Dioxide 32 mmol/L (22-29) H 08/28/23 17:22 Anion Gap 14.1 (5-19) 08/28/23 17:22 BUN 16 mg/dL (6-20) 08/28/23 17:22 Creatinine 0.7 mg/dL (0.7-1.2) 08/28/23 17:22 GFR Calculation 131.5 mL/min (90-130) H 08/28/23 17:22 Glucose 134 mg/dL (65-115) H 08/28/23 17:22 Calculated Osmolality 301 mOsm/kg (285-295) H 08/28/23 17:22 Lactic Acid 1.8 mmol/L (0.5-2.2) 08/28/23: Calcium 10.2 mg/dL (8.5-10.5) 08/28/23: Total Bilirubin 0.2 mg/dL (0.15-1.2) 08/28/23 17: AST 20 U/L (0-40) 08/28/23: ALT 16 U/L (0-41) 08/28/23: Alkaline Phosphatase 100 U/L (40-130) 08/28/23 17: NT-Pro-B Natriuret Pep < 36 pg/mL (0-125) 08/28/23: Total Protein 8.1 g/dL (6.6-8.7) 08/28/23: Albumin 4.4 g/dL (3.5-5.2) 08/28/23: Globulin 3.7 g/dL (1.3-4.6) 08/28/23: Urine Color Yellow (Yellow) 08/28/23 20:04 Urine Appearance Clear (CLEAR) 08/28/23 20:04 Urine pH 6 (5-7) 08/28/23 20:04 Ur Specific [place] 1.020 (1.005-1.030) 08/28/23 20:04 Urine Protein Neg (Negative) 08/28/23 20:04 Urine Glucose (UA) Norm (Normal) 08/28/23 20:04 Urine Ketones 1+ (Negative) H 08/28/23 20:04 Urine Blood Neg (Negative) 08/28/23 20:04 Urine Nitrate Negative (Negative) 08/28/23 20:04 Urine Bilirubin Neg (Negative) 08/28/23 20:04 Urine Urobilinogen Neg mg/dL (Negative) 08/28/23 20:04 Ur Leukocyte Esterase Negative (Negative) 08/28/23 20:04 All radiology interpretation(s) finalized by discharge Discharge Plan Discharge Patient Disposition: Admitted As Inpatient Admit Provider: Stephanie Rush Clinical Impression: Acute and chronic respiratory failure with hypoxia, Pneumonia Condition: Stable Coding Level of Care Code ED Rn Testing for Chg Antonio
[2023-08-28 17:53] LABS: Basophils # 0.1 10^3/uL (0.0-0.1); Basophils % 0.5 %; Eosinophils % 0.1 %; Hematocrit 55.2 % (37-53); Lymphocytes # 1.8 10^3/uL (0.8-4.8); Lymphocytes % 11.7 %; Mean Corpuscular HGB Conc 31.7 g/dL (30-55); Mean Corpuscular Hemoglobin 31.2 pg (27-33); Mean Corpuscular Volume 98.4 fl (82-101); Mean Platelet Volume 9.9 fL (7.4-10.4); Monocytes # 0.6 10^3/uL (0.2-0.9); Monocytes % 3.9 %; Neutrophils # 12.17 10^3/uL (1.8-7.7); Neutrophils % 80.2 %; Nucleated Red Blood Cells % 0 %; Platelet Count 280 10^3/cmm (157-399); Red Blood Count 5.61 10^6/uL (3.85-5.65); White Blood Count 15.16 10^3/uL (3.29-11.43)
[2023-08-28 18:26] LABS: Lactic Sepsis W/Reflex 1.8 mmol/L (0.5-2.2)
[2023-08-28] MEDS: sodium chloride 0.9% 2,177.25 ML 2177.25 ML IV (18:30)
--- NOTE | 2023-08-28 18:31 | ECG_ITS ---
[facility] [place] Date: 2023-08-28 Pat Name: Williams Dior Department: Room: Gender: Male Steam Fitter: : 1990 Requested By: Dano Savage Order Number: [id number] Lionel MD: Silvestre Mcintosh M.D. Measurements Intervals [place] Rate: 121 P: 0 SC: 0 QRS: -62 QRSD: 127 T: 56 QT: 315 QTc: 447 Interpretive Statements SINUS TACHYCARDIA CONDUCTION OR VENTRICULAR PREMATURE COMPLEXES LEFT ANTERIOR FASCICULAR BLOCK [QRS AXIS <= -45, QR IN I, RS IN II] POSSIBLE ANTERIOR MYOCARDIAL INFARCTION , OF INDETERMINATE AGE [30 ms Q WAVE IN V3/V4, OR R < 0.2 mV IN V4] Compared to ECG 08/21/2023 01:49:29 Ventricular premature complex(es) now present Left anterior fascicular block now present Myocardial infarct finding now present Left-axis deviation no longer present Intraventricular conduction delay no longer present ST (T wave) deviation no longer present Electronically Signed On 08-29-2023 6:36:44 CDT by Silvestre Mcintosh M.D. [id number]
[2023-08-28 18:36] LABS: Alanine Aminotransferase 16 U/L (0-41); Albumin Level 4.4 g/dL (3.5-5.2); Alkaline Phosphatase 100 U/L (40-130); Anion Gap 14.1 (5-19); Aspartate Amino Transferase 20 U/L (0-40); Blood Urea Nitrogen 16 mg/dL (6-20); Calcium 10.2 mg/dL (8.5-10.5); Carbon Dioxide 32 mmol/L (22-29); Chloride 102 mmol/L (98-107); Creatinine Clr Calc Pharmacy 145.5712; Globulin 3.7 g/dL (1.3-4.6); Glomerular Filtration Rate 131.5 mL/min (90-130); Glucose 134 mg/dL (65-115); NT Pro B Type Natriuretic Pept < 36 pg/mL (0-125); Osmolality Calculated 301 mOsm/kg (285-295); Potassium 4.1 mmol/L (3.5-5.1); Sodium 144 mmol/L (136-145); Total Bilirubin 0.2 mg/dL (0.15-1.2); Total Protein 8.1 g/dL (6.6-8.7)
[2023-08-28] MEDS: ipratropium-albuterol 3 mL Neb INHALATION (20:16)
[2023-08-28 20:26] LABS: Add Urine Microscopic? NO; Charge for UA Resulting for Rev
[2023-08-28 20:27] LABS: Bilirubin Urine Neg (Negative); Blood Urine Neg (Negative); Glucose Urine UA Norm (Normal); Ketones Urine 1+ (Negative); Leukocyte Esterase Urine Negative (Negative); Nitrate Urine Negative (Negative); Protein Urine Neg (Negative); Urine Appearance Clear (CLEAR); Urine Color Yellow (Yellow); Urobilinogen Urine Neg (Negative); pH Urine 6 (5-7)
--- NOTE | 2023-08-28 22:48 | CTR_ITS ---
PROCEDURE INFORMATION: Exam: CT Chest Without Contrast; Diagnostic Exam date and time: 08/28/2023 11:07 PM Age: 32 years old Clinical indication: Other: Low o2 sat; Additional info: Evaluate for complex effusion/empyema, recent treatment for pna with iv abx returning with worsened TECHNIQUE: Imaging protocol: Diagnostic computed tomography of the chest without contrast. Radiation optimization: All CT scans at this facility use at least one of these dose optimization techniques: automated exposure control; mA and/or kV adjustment per patient size (includes targeted exams where dose is matched to clinical indication); or iterative reconstruction. COMPARISON: [place] [id number] 09/26/2020 4:04 PM RADIATION DOSE METRICS: Total DLP (mGy-cm): 267.2 FINDINGS: Lungs: Left lower lobe consolidation with some volume loss. Scattered subsegmental opacities in the right middle lobe. Pleural spaces: No definite pleural effusion, but evaluation is somewhat limited without IV contrast. No pneumothorax. Heart: Unremarkable. No cardiomegaly. No pericardial effusion. Coronary arteries: No significant coronary artery calcification. Lymph nodes: Unremarkable. No enlarged lymph nodes. Vasculature: Unremarkable. No aortic aneurysm. Bones/joints: Unremarkable. No acute fracture. Soft tissues: Unremarkable. CT/CT chest wo con [id number] IMPRESSION: 1. Near-complete opacification of the left lower lobe, likely combination of chronic atelectasis and superimposed infiltrate. 2. No definite pleural effusion or evidence of empyema, but evaluation is somewhat limited without IV contrast.
--- NOTE | 2023-08-28 22:53 | P.HP_ITS ---
Providers/Chief Complaint 2 Admitting Physician: Stephanie Rush MD Primary Care Provider: ARA Cullen Chief Complaint: upper back pains History of Present Illness Williams Dior is a 32 year old male recently admitted here between August 20 to August 22, 2023: Pneumonia. He has a past history for Fragile X syndrome, myotonic muscular dystrophy, intellectual disability, ADHD. He had presented with symptoms of cough headache sore throat for the past 2 to 3 days. X-ray had shown atelectasis versus pneumonitis and patient was treated with IV ceftriaxone and azithromycin. He also received IV Solu-Medrol and DuoNebs and was eventually discharged home when he showed significant improvement over the next day. He was discharged with supplemental O2 with 2 L/min. He returned to the emergency room today and his caregivers noticed an increased oxygen requirement at 4 L/min. He had been using nebulizer at home every 4 hours, however was noted to have increased difficulty breathing and was brought into the emergency room. Review of Systems 2 General: Reports: ROS unobtainable due to medical condition Medications/Allergies Home Medications Medication Instructions Recorded Confirmed Last Taken Type fluticasone propionate 50 1 spray intranasal BID PRN nasal 09/09/22 08/27/23 Unknown Rx mcg/actuation nasal congestion #16 grams spray,suspension (Flonase Allergy Relief) quetiapine 200 mg tablet (Seroquel) 200 mg PO BID@0800,2000 #60 tabs 01/02/23 08/27/23 Unknown Rx acetaminophen 325 mg capsule 325 mg PO Q6H PRN pain or fever 03/18/23 08/27/23 Unknown Rx (Tylenol) #30 caps calcium carbonate (Antacid See Rx Instructions .Route 03/18/23 08/27/23 Unknown Rx (calcium carbonate)) .COMPLEX #60 ea cholecalciferol (vitamin D3) 25 1,000 unit PO DAILY #30 ea 03/18/23 08/27/23 Unknown Rx mcg (1,000 unit) tablet guaifenesin 600 mg tablet, 600 mg PO Q12H #60 tabs 03/18/23 08/27/23 Unknown Rx extended release 12 hr (Mucinex) magnesium hydroxide 400 mg/5 mL 15 ml PO BID PRN constipation 03/18/23 08/27/23 Unknown Rx oral suspension (Milk of Magnesia) #3,000 mL polyethylene glycol 3350 17 17 g PO Q12H 30 days #1,020 grams 03/18/23 08/27/23 Unknown Rx gram/dose oral powder (Miralax) sennosides 8.6 mg-docusate sodium 2 tab-cap (2 x 8.6-50 mg) PO BID 03/18/23 08/27/23 Unknown Rx 50 mg tablet (Senna-S) #60 tabs vitamin no.167-folic acid 1 tab PO DAILY #30 tabs 06/24/23 08/27/23 Unknown Rx 400 mcg-dha 25 mg chewable tablet (One-A-Day ) chlorhexidine gluconate 0.12 % 15 ml buccal BID #600 mL 08/02/23 08/27/23 Unknown Rx mouthwash (Peridex) trazodone 100 mg tablet 100 mg PO .HS #30 tabs 08/08/23 08/27/23 Unknown Rx levofloxacin 500 mg tablet 500 mg PO DAILY #7 tabs 08/22/23 08/27/23 Unknown Rx methylprednisolone 4 mg tablets in See Rx Instructions PO .COMPLEX 08/22/23 08/27/23 Unknown Rx a dose pack (Medrol (Olvin)) #21 ea Disposable nebulizer circuit with #1 ea 08/27/23 08/27/23 Unknown Rx mask budesonide 0.5 mg/2 mL suspension 0.5 mg (2 mL) inhalation BID #120 08/27/23 08/27/23 Unknown Rx for nebulization (Pulmicort) mL ipratropium 0.5 mg-albuterol 3 mg 3 ml inhalation Q4H PRN shortness 08/27/23 08/27/23 Unknown Rx (2.5 mg base)/3 mL nebulization of breath or wheezing #180 mL soln Allergies Allergy/AdvReac Type Severity Reaction Status Date / Time No Known Allergies Allergy Verified 08/27/23 14:48 PFSH Acute 2 PFSH: Medical History Asthma Fragile X syndrome Gingiva disorder Insomnia Psychiatric care On combination antipsychotic drug therapy On combination antipsychotic drug therapy 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 Post-traumatic stress disorder, chronic Constipation due to slow transit ADHD (attention deficit hyperactivity disorder) Bed wetting Vitamin D deficiency Surgical History History of toe surgery Left great toe Family History Unknown Unknown family medical history Family history unknown by caregiver Social History Smoking and tobacco/nicotine status: never used tobacco/nicotine Second hand smoke exposure: No Alcohol intake: never Substance/Drug Use: never Adopted: No Caregiver/support person: Yes Lives independently: No Household members: caregiver Housing: House Marital status: Single Number of children: 0 Number of grandchildren: 0 Highest education level completed: High School Graduate service: No Current occupational status: disabled Current occupational exposures/hazards: No Pets and animals: Yes Pets & animals: dog(s) Leisure activites: sports, art, music, games, fishing and volunteer work Sexually active: No Do you think of yourself as: Straight/Heterosexual Current gender identity: Male Special imer needs: No Vitals/I&O/Wt Last Vital Signs Temp 98.1 F 08/28/23 22:24 Pulse 111 H 08/28/23 22:24 Resp 16 08/28/23 22:24 BP 112/66 08/28/23 22:24 Pulse Ox 97 08/28/23 22:24 O2 Del Method Nasal Cannula 08/28/23 22:24 O2 Flow Rate 2 08/28/23 22:24 08/28/23 08/28/23 08/28/23 06:59 14:59 22:59 Intake Total 2177.25 / 2177.25 Balance 2177.25 / 2177.25 Weight last 48 hrs Weight 73.482 kg Weight 72.575 kg Physical Exam 2 Narrative: General: No acute distress HEENT: PERRLA, pupils bilaterally equal and reactive, pallors not present Chest: Normal vesicular breath sounds, no added sounds, equal good air entry bilaterally CVS: S1-S2 regular, no murmurs, no tachycardia, no gallops, no rubs Abdomen: Soft, nontender, no organomegaly, bowel sounds present Data 08/29/23 03:26 08/29/23 03:26 Other Labs: Launch[facility] [address] [place] [address] XRay Report Signed Patient: Williams Dior Unit #: [id number] : 1990 Age/Sex: 32 / M ADM Date: 08/28/23 Loc: ER Room/Bed: Attending Dr: Ordering Provider/Ordering MD: Dano Junior DO Date of Service: 08/28/23 Procedure(s): XR chest 1V portable [id number] Accession Number(s): [id number] Report Number: [id number] PROCEDURE INFORMATION: Exam: XR Chest Exam date and time: 08/28/2023 5:36 PM Age: 32 years old Clinical indication: Cough and dyspnea; Additional info: Dyspnea/cough TECHNIQUE: Imaging protocol: Radiologic exam of the chest. Views: 1 view. COMPARISON: CR (CHEST, ) 08/21/2023 2:23 AM FINDINGS: Lungs: No focal consolidation. Elevation of the left hemidiaphragm with left basilar subsegmental atelectasis. Pleural spaces: No evidence of pneumothorax. A small left-sided pleural effusion would be difficult to exclude. Heart/Mediastinum: Cardiomediastinal silhouette is within normal limits. Bones/joints: No evidence of acute osseous abnormality. XR/XR chest 1V portable [id number] IMPRESSION: 1. Chronic elevation of the left hemidiaphragm with left basilar subsegmental atelectasis. A small left-sided pleural effusion would be difficult to exclude. Micro: Microbiology 08/28/23 18:27 Blood Culture - Preliminary Blood SPECIMEN COLLECTED 08/28/23 17:22 Blood Culture - Preliminary Blood SPECIMEN COLLECTED A&P Assessment and plan (1) Fragile x chromosome: (2) Pneumonia: Plan 32-year-old male recently admitted to the hospital for treatment of community- acquired pneumonia, received ceftriaxone and azithromycin during his hospital stay between August 20 to August 21. Thereafter discharged on levofloxacin. Presents to the emergency room with complaints of worsening respiratory status, increased shortness of breath, increased oxygen requirement today. Chest x-ray shows left lower lobe infiltrate, possibility of and pneumonia with overlying effusion Will obtain CT of the chest to assess for interval development of any complicated effusion versus empyema. Blood cultures taken in the emergency room Start empiric antibiotic treatment with piperacillin/tazobactam and vancomycin Check sputum culture and Gram stain, MRSA nares Check respiratory viral panel as potentially viral illness could be a cause of progression of symptoms and spite of antibiotics. On his last admission patient underwent a swallow evaluation by speech therapy, no kinsey aspiration was noted. He has been cleared for a regular diet. Continue DuoNeb inhalation every 4 hours as needed EKG reveals sinus tachycardia, machine reading notes atrial fibrillation with RVR with left anterior fascicular block, however per personal review, my interpretation is that of sinus tachycardia. No new changes compared to prior EKGs from previous admission. Suspect tachycardia related to dehydration He has received 1 L fluid bolus in the emergency room. Continue IV fluids D5 half-normal at 75 cc an hour Attestations 2 Medical Necessity Statement*: Greater than 2 midnight stay is anticipated Coding Level of Care Code Acute Code for Chg Fwd Diagnoses 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
[2023-08-28] MEDS: enoxaparin 40 mg/0.4 mL Syringe SUBCUT (23:50)
[2023-08-28] MEDS: vancomycin 1,000 MG in sodium chloride 0.9% 250 ML 250 MG IV (23:53)
[2023-08-29] VITALS: BP 119/75; PULSE 102; RESP 18; TEMP 36.8; O2SAT 96
[2023-08-29] MEDS: piperacillin-tazobactam 3.375 GM in sodium chloride 0.9% (plus) 50 ML IV ×3 (01:10→17:47)
[2023-08-29 02:42] LABS: Adenovirus Not Detected (NOT DETECT); Chlamydia Pneumoniae Not Detected (NOT DETECT); Coronavirus 229E,HKU1,NL63,OC4 Not Detected (NOT DETECT); Human Metapneumovirus Not Detected (NOT DETECT); Human Rhinovirus/Enterovirus Detected (NOT DETECT); Influenza A Not Detected (NOT DETECT); Influenza A H1 Not Detected (NOT DETECT); Influenza A H1-2009 Not Detected (NOT DETECT); Influenza A H3 Not Detected (NOT DETECT); Influenza B Not Detected (NOT DETECT); Mycoplasma Pneumoniae Not Detected (NOT DETECT); Parainfluenza Virus Type 1 Not Detected (NOT DETECT); Parainfluenza Virus Type 2 Not Detected (NOT DETECT); Parainfluenza Virus Type 3 Not Detected (NOT DETECT); Parainfluenza Virus Type 4 Not Detected (NOT DETECT); Respiratory Syncytial Virus A Not Detected (NOT DETECT); Respiratory Syncytial Virus B Not Detected (NOT DETECT); SARS-COV-2 Not Detected (NOT DETECT)
[2023-08-29 03:47] LABS: Basophils # 0.1 10^3/uL (0.0-0.1); Basophils % 0.4 %; Eosinophils % 0.1 %; Hematocrit 45.2 % (37-53); Lymphocytes # 2.5 10^3/uL (0.8-4.8); Lymphocytes % 17.7 %; Mean Corpuscular HGB Conc 31.6 g/dL (30-55); Mean Corpuscular Hemoglobin 31.1 pg (27-33); Mean Corpuscular Volume 98.3 fl (82-101); Mean Platelet Volume 9.7 fL (7.4-10.4); Monocytes # 0.7 10^3/uL (0.2-0.9); Monocytes % 4.5 %; Neutrophils % 74.7 %; Nucleated Red Blood Cells % 0 %; Platelet Count 218 10^3/cmm (157-399); Red Cell Distribution Width 13.2 % (12.1-15.1); White Blood Count 14.33 10^3/uL (3.29-11.43)
[2023-08-29 04:00] VITALS: BP 105/68; PULSE 90; RESP 18; TEMP 36.7; O2SAT 92
[2023-08-29 04:06] LABS: Alanine Aminotransferase 12 U/L (0-41); Albumin Level 3.3 g/dL (3.5-5.2); Alkaline Phosphatase 73 U/L (40-130); Anion Gap 11.9 (5-19); Aspartate Amino Transferase 14 U/L (0-40); Blood Urea Nitrogen 12 mg/dL (6-20); Calcium 8.3 mg/dL (8.5-10.5); Carbon Dioxide 29 mmol/L (22-29); Chloride 109 mmol/L (98-107); Creatinine Clr Calc Pharmacy 146.3559; Globulin 2.6 g/dL (1.3-4.6); Glomerular Filtration Rate 131.5 mL/min (90-130); Glucose 88 mg/dL (65-115); Osmolality Calculated 301 mOsm/kg (285-295); Potassium 3.9 mmol/L (3.5-5.1); Sodium 146 mmol/L (136-145); Total Bilirubin 0.4 mg/dL (0.15-1.2); Total Protein 5.9 g/dL (6.6-8.7)
[2023-08-29] MEDS: dextrose 5%-sod chloride 0.45% 1,000 ML 75 ML IV ×2 (06:01→17:48)
[2023-08-29] MEDS: vancomycin 1,000 MG in sodium chloride 0.9% 250 ML 250 MG IV ×2 (06:46→15:46)
[2023-08-29 08:00] VITALS: BP 96/62; PULSE 89; PULSE 92; RESP 16; RESP 20; TEMP 36.7; O2SAT 97
[2023-08-29] MEDS: pantoprazole DR 40 mg Tablet PO (08:28)
[2023-08-29 11:25] VITALS: BP 114/78; PULSE 97; RESP 15; TEMP 36.8; O2SAT 96
--- NOTE | 2023-08-29 13:17 | P.PN_ITS ---
Subjective 2 Subjective: No acute overnight events noted. Seen him at bedside this morning he was very anxious, and wanted to go home. Explained to him about his diagnosis and plan of care. He denied any shortness of breath or increased cough at this time Medications: Reviewed: Yes Vitals/I&O/Wt Last Vital Signs Temp 98.2 F 08/29/23 11:25 Pulse 97 08/29/23 11:25 Resp 15 08/29/23 11:25 BP 114/78 08/29/23 11:25 Pulse Ox 96 08/29/23 11:25 O2 Del Method Nasal Cannula 08/29/23 11:25 O2 Flow Rate 3 08/29/23 08:00 08/28/23 08/29/23 08/29/23 22:59 06:59 14:59 Intake Total 2177.25 / 2177.25 425 / 2602.25 370 / 370 Output Total 1000 / 1000 Balance 2177.25 / 2177.25 425 / 2602.25 -630 / -630 Weight last 48 hrs Weight 75.296 kg Weight 73.482 kg Weight 72.575 kg Physical Exam 2 Narrative: General: No acute distress HEENT: PERRLA, pupils bilaterally equal and reactive, pallors not present Chest: Normal vesicular breath sounds, no added sounds, equal good air entry bilaterally CVS: S1-S2 regular, no murmurs, no tachycardia, no gallops, no rubs Abdomen: Soft, nontender, no organomegaly, bowel sounds present Data 08/29/23 03:26 08/29/23 03:26 Micro: Microbiology 08/28/23 18:27 Blood Culture - Preliminary Blood SPECIMEN COLLECTED 08/28/23 17:22 Blood Culture - Preliminary Blood SPECIMEN COLLECTED A&P Assessment and plan (1) Fragile x chromosome: (2) Pneumonia: Plan 32-year-old male recently admitted to the hospital for treatment of community- acquired pneumonia, received ceftriaxone and azithromycin during his hospital stay between August 20 to August 21. Thereafter discharged on levofloxacin. Presented to the emergency room with complaints of worsening respiratory status, increased shortness of breath, increased oxygen requirement and found to have left lower lobe dense infiltrate likely pneumonia. CT chest was done to rule out pleural effusion/empyema.Less likely to have swallowing issues, since he was evaluated by speech and swallow last admission and was recommended regular diet. Community-acquired pneumonia Leukocytosis trending down, 14.3 today Viral panel positive for enterovirus/rhinovirus. Will continue IV antibiotics vancomycin and Zosyn Continue IV fluids D5 half NS at 75 mill per hour Follow-up sputum Gram stain and cultures MRSA swab pending Less likely to have swallowing issues, since he was evaluated by speech and swallow last admission and was recommended regular diet. Continue DuoNeb every 4 hours Regular diet DVT prophylaxis with subcutaneous Lovenox 40 mg daily GI prophylaxis with Protonix 40 mg p.o. daily He is full code for now Attestations 2 Medical Necessity Statement*: He needs continued hospitalization for IV fluids and IV antibiotics. Time Spent in Patient Care: 15 minutes Coding Level of Care Code Acute Code for Chg Fwd Diagnoses 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 Time Spent (min) 15
[2023-08-29 16:00] VITALS: BP 112/76; PULSE 96; RESP 15; TEMP 36.6; O2SAT 96
[2023-08-29 20:00] VITALS: BP 119/80; PULSE 102; RESP 18; TEMP 36.7; O2SAT 95
[2023-08-29 23:19] LABS: Vancomycin Trough 21.2 ug/mL (10-15)
[2023-08-29] MEDS: enoxaparin 40 mg/0.4 mL Syringe SUBCUT (23:25)
[2023-08-30] VITALS (13 sets, daily range): BP systolic 99–124; BP diastolic 67–82; PULSE 74–113; RESP 16–18; TEMP 36.4–36.7; O2SAT 89–97
[2023-08-30] MEDS: piperacillin-tazobactam 3.375 GM in sodium chloride 0.9% (plus) 50 ML IV ×4 (00:26→23:37)
[2023-08-30] MEDS: vancomycin 1,250 MG/250 ML PIGGYBACK 250 MG IV ×2 (04:11→16:20)
[2023-08-30 04:53] LABS: Basophils % 0.5 %; Eosinophils # 0.1 10^3/uL (0.0-0.8); Eosinophils % 0.7 %; Lymphocytes % 26.6 %; Mean Corpuscular HGB Conc 31.2 g/dL (30-55); Mean Corpuscular Hemoglobin 30.7 pg (27-33); Mean Corpuscular Volume 98.6 fl (82-101); Mean Platelet Volume 9.2 fL (7.4-10.4); Monocytes # 0.5 10^3/uL (0.2-0.9); Monocytes % 6.1 %; Neutrophils # 4.73 10^3/uL (1.8-7.7); Neutrophils % 62.7 %; Nucleated Red Blood Cells % 0 %; Platelet Count 220 10^3/cmm (157-399); Red Blood Count 4.36 10^6/uL (3.85-5.65); Red Cell Distribution Width 13.2 % (12.1-15.1); White Blood Count 7.55 10^3/uL (3.29-11.43)
[2023-08-30 05:18] LABS: Anion Gap 10.4 (5-19); Blood Urea Nitrogen 10 mg/dL (6-20); Calcium 8.7 mg/dL (8.5-10.5); Carbon Dioxide 30 mmol/L (22-29); Chloride 109 mmol/L (98-107); Creatinine Clr Calc Pharmacy 146.6699; Glomerular Filtration Rate 131.5 mL/min (90-130); Glucose 84 mg/dL (65-115); Osmolality Calculated 298 mOsm/kg (285-295); Potassium 4.4 mmol/L (3.5-5.1); Sodium 145 mmol/L (136-145)
[2023-08-30] MEDS: pantoprazole DR 40 mg Tablet PO (07:48)
[2023-08-30] MEDS: ipratropium-albuterol 3 mL Neb INHALATION ×3 (08:56→19:55)
[2023-08-30] MEDS: dextrose 5%-sod chloride 0.45% 1,000 ML 75 ML IV ×2 (10:39→23:35)
[2023-08-30] MEDS: quetiapine 100 mg Tablet 200 MG PO ×2 (11:46→17:19)
[2023-08-30] MEDS: LORazepam 0.5 mg Tablet PO (12:14)
--- NOTE | 2023-08-30 13:44 | PM.PN ---
Subjective Subjective: No acute overnight events noted, seen at bedside, reports improved cough but looks anxious this morning. Will give p.o. Ativan 0.5 mg 1 dose now. Spoke with the biomedical engineering technician who is at the bedside, she reports he is feeling much better and cough has reduced. Medications: Reviewed: Yes Vitals/I&O/Wt Last Vital Signs Temp 98.1 F 08/30/23 12:37 Pulse 106 H 08/30/23 12:37 Resp 16 08/30/23 12:37 BP 113/75 08/30/23 12:37 Pulse Ox 89 L 08/30/23 12:37 O2 Del Method Nasal Cannula 08/30/23 08:00 O2 Flow Rate 2 08/30/23 08:00 08/29/23 08/30/23 08/30/23 22:59 06:59 14:59 Intake Total 1543.75 / 1963.75 300 / 2263.75 1170 / 1170 Balance 1543.75 / 963.75 300 / 1263.75 1170 / 1170 Weight last 48 hrs Weight 73.845 kg Weight 75.296 kg Weight 73.482 kg Weight 72.575 kg Physical Exam Narrative: General: No acute distress HEENT: PERRLA, pupils bilaterally equal and reactive, pallors not present Chest: Normal vesicular breath sounds, no added sounds, equal good air entry bilaterally CVS: S1-S2 regular, no murmurs, no tachycardia, no gallops, no rubs Abdomen: Soft, nontender, no organomegaly, bowel sounds present Data 08/30/23 04:41 08/30/23 04:41 Micro: Microbiology 08/28/23 18:27 Blood Culture - Preliminary Blood NEGATIVE TO DATE 08/28/23 17:22 Blood Culture - Preliminary Blood NEGATIVE TO DATE A&P Assessment and plan (1) Fragile x chromosome: (2) Pneumonia: Plan 32-year-old male recently admitted to the hospital for treatment of community-acquired pneumonia, received ceftriaxone and azithromycin during his hospital stay between August 20 to August 21. Thereafter discharged on levofloxacin. Presented to the emergency room with complaints of worsening respiratory status, increased shortness of breath, increased oxygen requirement and found to have left lower lobe dense infiltrate likely pneumonia. CT chest was done to rule out pleural effusion/empyema.Less likely to have swallowing issues, since he was evaluated by speech and swallow last admission and was recommended regular diet. Community-acquired pneumonia, dense left lower lobe pneumonia. Leukocytosis resolved Viral panel positive for enterovirus/rhinovirus. Will continue IV antibiotics vancomycin and Zosyn for now. Continue IV fluids D5 half NS at 75 ml per hour no able to give sputum sample due to his inability to understand, he is just swallowing the mucus. MRSA swab pending Less likely to have swallowing issues, since he was evaluated by speech and swallow last admission and was recommended regular diet. Continue DuoNeb every 6 hours Po mucinex 600mg bid incentive spirometer. Regular diet DVT prophylaxis with subcutaneous Lovenox 40 mg daily GI prophylaxis with Protonix 40 mg p.o. daily He is full code for now Attestations Medical Necessity Statement*: He needs continued hospitalization for treatment of dense left lower lobe pneumonia with IV antibiotics DuoNebs and fluids Time Spent in Patient Care: 15 minutes Coding Level of Care Code Acute Code for Chg Fwd Diagnoses 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 Time Spent (min) 15
[2023-08-30 13:56] LABS: Methicillin-Resist S.aureu PCR NOT DETECTED (NOT DETECTED)
[2023-08-30] MEDS: guaiFENesin 600 mg Tablet PO (17:19)
[2023-08-30] MEDS: trazodone 100 mg Tablet PO (21:09)
[2023-08-30] MEDS: enoxaparin 40 mg/0.4 mL Syringe SUBCUT (23:37)
[2023-08-31] VITALS (13 sets, daily range): BP systolic 90–120; BP diastolic 59–84; PULSE 75–109; RESP 16–18; TEMP 36.4–37.2; O2SAT 90–97
[2023-08-31] MEDS: vancomycin 1,250 MG/250 ML PIGGYBACK 250 MG IV ×2 (04:15→16:14)
[2023-08-31] MEDS: ipratropium-albuterol 3 mL Neb INHALATION ×3 (08:14→20:15)
[2023-08-31] MEDS: piperacillin-tazobactam 3.375 GM in sodium chloride 0.9% (plus) 50 ML IV ×2 (09:22→17:16)
[2023-08-31] MEDS: guaiFENesin 600 mg Tablet PO ×2 (09:22→17:16)
[2023-08-31] MEDS: quetiapine 100 mg Tablet 200 MG PO ×2 (09:22→17:16)
[2023-08-31] MEDS: pantoprazole DR 40 mg Tablet PO (09:22)
--- NOTE | 2023-08-31 09:37 | PM.PN ---
Subjective Subjective: No acute overnight events noted. He looks better today with less anxiety and answering questions appropriately. He denies any increased cough or shortness of breath Medications: Reviewed: Yes Vitals/I&O/Wt Last Vital Signs Temp 98.3 F 08/31/23 07:56 Pulse 80 08/31/23 08:00 Resp 16 08/31/23 08:00 BP 102/66 08/31/23 07:56 Pulse Ox 91 08/31/23 08:00 O2 Del Method Room Air 08/31/23 08:00 O2 Flow Rate 3 08/31/23 01:44 08/30/23 08/31/23 08/31/23 22:59 06:59 14:59 Intake Total 300 / 1470 1270 / 2740 Balance 300 / 1470 1270 / 2740 Weight last 48 hrs Weight 74.162 kg Weight 73.845 kg Physical Exam Narrative: General: No acute distress HEENT: PERRLA, pupils bilaterally equal and reactive, pallors not present Chest: Normal vesicular breath sounds, no added sounds, equal good air entry bilaterally CVS: S1-S2 regular, no murmurs, no tachycardia, no gallops, no rubs Abdomen: Soft, nontender, no organomegaly, bowel sounds present Data 08/30/23 04:41 08/30/23 04:41 A&P Assessment and plan (1) Fragile x chromosome: (2) Pneumonia: Plan 32-year-old male recently admitted to the hospital for treatment of community-acquired pneumonia, received ceftriaxone and azithromycin during his hospital stay between August 20 to August 21. Thereafter discharged on levofloxacin. Presented to the emergency room with complaints of worsening respiratory status, increased shortness of breath, increased oxygen requirement and found to have left lower lobe dense infiltrate likely pneumonia. CT chest was done to rule out pleural effusion/empyema.Less likely to have swallowing issues, since he was evaluated by speech and swallow last admission and was recommended regular diet. Community-acquired pneumonia, dense left lower lobe pneumonia. Leukocytosis resolved Viral panel positive for enterovirus/rhinovirus. Will continue IV antibiotics vancomycin and Zosyn for now, given recent history of pneumonia and repeated hospitalization, due to non response to oral antibiotics. plan for 5 days of IV antibiotics Continue IV fluids D5 half NS at 75 ml per hour regular diet. Continue DuoNeb every 6 hours Po mucinex 600mg bid incentive spirometer. Regular diet DVT prophylaxis with subcutaneous Lovenox 40 mg daily GI prophylaxis with Protonix 40 mg p.o. daily He is full code for now Discharge planning- possible discharge home on saturday after 5 days of IV antibiotics. Attestations Medical Necessity Statement*: He needs continued hospitalization for IV antibiotics vancomycin and Zosyn for now, given recent history of pneumonia and repeated hospitalization, due to non response to oral antibiotics. 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
[2023-08-31] MEDS: dextrose 5%-sod chloride 0.45% 1,000 ML 75 ML IV (13:13)
[2023-08-31 15:41] LABS: Vancomycin Trough 16.1 ug/mL (10-15)
[2023-08-31] MEDS: trazodone 100 mg Tablet PO (21:35)
[2023-09-01] VITALS (14 sets, daily range): BP systolic 95–108; BP diastolic 62–73; PULSE 75–107; RESP 16–19; TEMP 36.4–37.5; O2SAT 91–97
[2023-09-01] MEDS: piperacillin-tazobactam 3.375 GM in sodium chloride 0.9% (plus) 50 ML IV ×3 (00:22→16:20)
[2023-09-01] MEDS: enoxaparin 40 mg/0.4 mL Syringe SUBCUT (00:22)
[2023-09-01] MEDS: dextrose 5%-sod chloride 0.45% 1,000 ML 75 ML IV ×2 (01:53→16:19)
[2023-09-01] MEDS: vancomycin 1,250 MG/250 ML PIGGYBACK 250 MG IV ×2 (04:31→16:19)
[2023-09-01] MEDS: ipratropium-albuterol 3 mL Neb INHALATION ×3 (08:42→19:34)
[2023-09-01] MEDS: guaiFENesin 600 mg Tablet PO ×2 (09:21→16:20)
[2023-09-01] MEDS: quetiapine 100 mg Tablet 200 MG PO ×2 (09:21→16:20)
[2023-09-01] MEDS: pantoprazole DR 40 mg Tablet PO (09:21)
--- NOTE | 2023-09-01 13:37 | P.PN_ITS ---
Subjective 2 Subjective: No acute overnight events noted. Denies any increased cough shortness of breath or fever Medications: Reviewed: Yes Vitals/I&O/Wt Last Vital Signs Temp 97.6 F 09/01/23 07:28 Pulse 80 09/01/23 13:35 Resp 16 09/01/23 13:35 BP 108/73 09/01/23 11:45 Pulse Ox 97 09/01/23 13:35 O2 Del Method Room Air 09/01/23 13:35 O2 Flow Rate 3 08/31/23 01:44 08/31/23 09/01/23 09/01/23 22:59 06:59 14:59 Intake Total 660 / 1950 1350 / 3300 480 / 480 Balance 660 / 1950 1350 / 3300 480 / 480 Weight last 48 hrs Weight 76.385 kg Weight 74.162 kg Physical Exam 2 Narrative: General: No acute distress HEENT: PERRLA, pupils bilaterally equal and reactive, pallors not present Chest: Normal vesicular breath sounds, no added sounds, equal good air entry bilaterally CVS: S1-S2 regular, no murmurs, no tachycardia, no gallops, no rubs Abdomen: Soft, nontender, no organomegaly, bowel sounds present Data 08/30/23 04:41 08/30/23 04:41 A&P Assessment and plan (1) Fragile x chromosome: (2) Pneumonia: Plan 32-year-old male recently admitted to the hospital for treatment of community- acquired pneumonia, received ceftriaxone and azithromycin during his hospital stay between August 20 to August 21. Thereafter discharged on levofloxacin. Presented to the emergency room with complaints of worsening respiratory status, increased shortness of breath, increased oxygen requirement and found to have left lower lobe dense infiltrate likely pneumonia. CT chest was done to rule out pleural effusion/empyema.Less likely to have swallowing issues, since he was evaluated by speech and swallow last admission and was recommended regular diet. Community-acquired pneumonia, dense left lower lobe pneumonia. Leukocytosis resolved Viral panel positive for enterovirus/rhinovirus. blood cultures negative so far Will continue IV antibiotics vancomycin and Zosyn for now, given recent history of pneumonia and repeated hospitalization, due to non response to oral antibiotics. plan for 5 days of IV antibiotics Continue IV fluids D5 half NS at 75 ml per hour regular diet. Continue DuoNeb every 6 hours Po mucinex 600mg bid incentive spirometer. Regular diet DVT prophylaxis with subcutaneous Lovenox 40 mg daily GI prophylaxis with Protonix 40 mg p.o. daily He is full code for now Discharge planning- possible discharge home on saturday after 5 days of IV antibiotics. Attestations 2 Medical Necessity Statement*: He needs continued hospitalization for IV antibiotics vancomycin and Zosyn for now, given recent history of pneumonia and repeated hospitalization, due to non response to oral antibiotics. 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
[2023-09-01] MEDS: trazodone 100 mg Tablet PO (20:42)
[2023-09-02] MEDS: enoxaparin 40 mg/0.4 mL Syringe SUBCUT (00:02)
[2023-09-02] MEDS: piperacillin-tazobactam 3.375 GM in sodium chloride 0.9% (plus) 50 ML IV ×2 (00:03→09:35)
[2023-09-02 02:09] VITALS: PULSE 77; RESP 18; O2SAT 92
[2023-09-02 04:00] VITALS: BP 92/58; PULSE 74; RESP 18; TEMP 36.5; O2SAT 93
[2023-09-02] MEDS: vancomycin 1,250 MG/250 ML PIGGYBACK 250 MG IV (04:01)
[2023-09-02] MEDS: dextrose 5%-sod chloride 0.45% 1,000 ML 75 ML IV (04:03)
[2023-09-02 04:54] VITALS: PULSE 73
[2023-09-02 08:00] VITALS: BP 108/71; PULSE 88; PULSE 89; RESP 16; RESP 18; TEMP 36.4; O2SAT 94; O2SAT 96
[2023-09-02] MEDS: guaiFENesin 600 mg Tablet PO (09:35)
[2023-09-02] MEDS: pantoprazole DR 40 mg Tablet PO (09:35)
[2023-09-02] MEDS: quetiapine 100 mg Tablet 200 MG PO (09:35)
[2023-09-02] MEDS: ipratropium-albuterol 3 mL Neb INHALATION (09:54)
--- NOTE | 2023-09-02 12:30 | PM.DCS ---
Discharge Providers Date of Admission: 08/28/23 21:02 Date of Discharge: September 02, 2023 Attending Provider at Admission: Stephanie Rush MD Attending Provider at Discharge: Avelino Wu MD Primary Care Provider: ARA Cullen Diagnoses at Discharge Discharge Diagnosis (1) Fragile x chromosome: Status: Chronic (2) Pneumonia: Status: Acute Reason for Visit Reason for Visit: upper back pains Hospital Course Hospital Course Williams is a 32-year-old white male with Fragile X recently admitted for pneumonia presenting on August 27 with worsening hypoxia. Shortness of breath was also noted. There was concern of failure of outpatient treatment, following up his brief inpatient stay earlier. He was placed on vancomycin, and Zosyn. Throughout the course of his hospital stay he showed gradual improvement. By the end he did not have any fevers, he had weaned to room air, and it was thought appropriate to discharge him home. Speech therapy saw him during his hospital stay and recommended a regular diet with slightly thickened liquids. He is at risk for aspiration, and this could certainly happen again in the future. CT was performed which demonstrated no obvious mass, or effusion. He will finish out 5 days of Augmentin and doxycycline. Physical Exam Narrative: General exam no distress Neck is supple Cardiovascular regular rate and rhythm Lungs clear but with diminished breath sounds left lung Abdomen is soft Extremities no cyanosis clubbing edema Discharge Data Studies Completed and Pending Completed Studies During Hospitalization Category Date Time Status CT chest wo con [id number] Routine Cat Scan 08/28/23 22:48 Completed XR chest 1V portable [id number] Stat Exams 08/28/23 17:12 Completed Pending at discharge Category Date Time Status Blood Culture Stat Lab 08/28/23 18:27 Results Sputum Culture and Gram Stain Routine Lab 08/28/23 22:52 Uncollected Radiology Impressions Chest X-Ray 08/28/23 17:12 IMPRESSION: 1. Chronic elevation of the left hemidiaphragm with left basilar subsegmental atelectasis. A small left-sided pleural effusion would be difficult to exclude. Chest CT 08/28/23 22:48 IMPRESSION: 1. Near-complete opacification of the left lower lobe, likely combination of chronic atelectasis and superimposed infiltrate. 2. No definite pleural effusion or evidence of empyema, but evaluation is somewhat limited without IV contrast. Laboratory Results WBC 7.55 10^3/uL (3.29-11.43) 08/30/23 04:41 RBC 4.36 10^6/uL (3.85-5.65) 08/30/23 04:41 Hgb 13.40 g/dL (11.27-16.99) 08/30/23 04:41 Hct 43.0 % (37-53) 08/30/23 04:41 MCV 98.6 fl (82-101) 08/30/23 04:41 MCH 30.7 pg (27-33) 08/30/23 04:41 MCHC 31.2 g/dL (30-55) 08/30/23 04:41 RDW 13.2 % (12.1-15.1) 08/30/23 04:41 Plt Count 220 10^3/cmm (157-399) 08/30/23 04:41 MPV 9.2 fL (7.4-10.4) 08/30/23 04:41 Neut % (Auto) 62.7 % 08/30/23 04:41 Lymph % (Auto) 26.6 % 08/30/23 04:41 [place] % (Auto) 6.1 % 08/30/23 04:41 Eos % (Auto) 0.7 % 08/30/23 04:41 Baso % (Auto) 0.5 % 08/30/23 04:41 Neut # (Auto) 4.73 10^3/uL (1.8-7.7) 08/30/23 04:41 Lymph # (Auto) 2.0 10^3/uL (0.8-4.8) 08/30/23 04:41 [place] # (Auto) 0.5 10^3/uL (0.2-0.9) 08/30/23 04:41 Eos # (Auto) 0.1 10^3/uL (0.0-0.8) 08/30/23 04:41 Baso # (Auto) 0.0 10^3/uL (0.0-0.1) 08/30/23 04:41 Nucleated RBC % (auto) 0 % 08/30/23 04:41 Nucleated RBCs # 0.0 /100WBC 08/30/23 04:41 D-Dimer 1.10 ug/mLFEU (0-0.59) H 08/28/23 15:22 Sodium 145 mmol/L (136-145) 08/30/23 04:41 Potassium 4.4 mmol/L (3.5-5.1) 08/30/23 04:41 Chloride 109 mmol/L (98-107) H 08/30/23 04:41 Carbon Dioxide 30 mmol/L (22-29) H 08/30/23 04:41 Anion Gap 10.4 (5-19) 08/30/23 04:41 BUN 10 mg/dL (6-20) 08/30/23 04:41 Creatinine 0.7 mg/dL (0.7-1.2) 08/30/23 04:41 GFR Calculation 131.5 mL/min (90-130) H 08/30/23 04:41 Glucose 84 mg/dL (65-115) 08/30/23 04:41 Calculated Osmolality 298 mOsm/kg (285-295) H 08/30/23 04:41 Lactic Acid 1.8 mmol/L (0.5-2.2) 08/28/23 17:22 Calcium 8.7 mg/dL (8.5-10.5) 08/30/23 04:41 Total Bilirubin 0.4 mg/dL (0.15-1.2) 08/29/23 03:26 AST 14 U/L (0-40) 08/29/23 03:26 ALT 12 U/L (0-41) 08/29/23 03:26 Alkaline Phosphatase 73 U/L (40-130) 08/29/23 03:26 NT-Pro-B Natriuret Pep < 36 pg/mL (0-125) 08/28/23 17:22 Total Protein 5.9 g/dL (6.6-8.7) L D 08/29/23 03:26 Albumin 3.3 g/dL (3.5-5.2) L 08/29/23 03:26 Globulin 2.6 g/dL (1.3-4.6) 08/29/23 03:26 Urine Color Yellow (Yellow) 08/28/23 20:04 Urine Appearance Clear (CLEAR) 08/28/23 20:04 Urine pH 6 (5-7) 08/28/23 20:04 Ur Specific [place] 1.020 (1.005-1.030) 08/28/23 20:04 Urine Protein Neg (Negative) 08/28/23 20:04 Urine Glucose (UA) Norm (Normal) 08/28/23 20:04 Urine Ketones 1+ (Negative) H 08/28/23 20:04 Urine Blood Neg (Negative) 08/28/23 20:04 Urine Nitrate Negative (Negative) 08/28/23 20:04 Urine Bilirubin Neg (Negative) 08/28/23 20:04 Urine Urobilinogen Neg mg/dL (Negative) 08/28/23 20:04 Ur Leukocyte Esterase Negative (Negative) 08/28/23 20:04 Vancomycin Trough 16.1 ug/mL (10-15) H 08/31/23 15:16 Adenovirus (PCR) Not detected (NOT DETECT) 08/29/23 00:50 C. pneumoniae DNA (PCR) Not detected (NOT DETECT) 08/29/23 00:50 Coronavirus 229E (PCR) Not detected (NOT DETECT) 08/29/23 00:50 Human Metapneumovir PCR Not detected (NOT DETECT) 08/29/23 00:50 Influenza A (H1) PCR Not detected (NOT DETECT) 08/29/23 00:50 Influ A (H1/09) PCR Not detected (NOT DETECT) 08/29/23 00:50 Influenza A (H3) PCR Not detected (NOT DETECT) 08/29/23 00:50 Influenza Type A (PCR) Not detected (NOT DETECT) 08/29/23 00:50 Influenza Type B (PCR) Not detected (NOT DETECT) 08/29/23 00:50 M. pneumoniae (PCR) Not detected (NOT DETECT) 08/29/23 00:50 Parainfluenza 1 (PCR) Not detected (NOT DETECT) 08/29/23 00:50 Parainfluenza 2 (PCR) Not detected (NOT DETECT) 08/29/23 00:50 Parainfluenza 3 (PCR) Not detected (NOT DETECT) 08/29/23 00:50 Parainfluenza 4 (PCR) Not detected (NOT DETECT) 08/29/23 00:50 RSV Type A (PCR) Not detected (NOT DETECT) 08/29/23 00:50 RSV Type B (PCR) Not detected (NOT DETECT) 08/29/23 00:50 Entero/Rhino (PCR) Detected (NOT DETECT) A 08/29/23 00:50 SARS-CoV-2 (PCR) Not detected (NOT DETECT) 08/29/23 00:50 MRSA (PCR) Not detected (NOT DETECTED) 08/29/23 00:50 Vitals Last Vital Signs Temp 97.6 F 09/02/23 08:00 Pulse 88 09/02/23 08:00 Resp 18 09/02/23 08:00 BP 108/71 09/02/23 08:00 Pulse Ox 94 09/02/23 08:00 O2 Del Method Room Air 09/02/23 08:00 O2 Flow Rate 3 08/31/23 01:44 Discharge Plan Discharge Patient Disposition: Home Condition: Stable Prescriptions: New doxycycline monohydrate 100 mg capsule 100 mg PO BID Qty: 10 0RF amoxicillin-pot clavulanate 875-125 mg tablet 1 tab PO BID Qty: 10 0RF Continued acetaminophen [Tylenol] 325 mg capsule 325 mg PO Q6H PRN (Reason: pain or fever) Qty: 30 0RF Antacid (calcium carbonate) 200 mg calcium (500 mg) tablet,chewable See Rx Instructions .ROUTE .COMPLEX Qty: 60 5RF Dose Instruction: chew AND swallow TWO tablets BY MOUTH DAILY Rx Instructions: chew AND swallow TWO tablets BY MOUTH DAILY cholecalciferol (vitamin D3) 25 mcg (1,000 unit) tablet 1,000 unit PO DAILY Qty: 30 5RF guaifenesin [Mucinex] 600 mg tablet extended release 12hr 600 mg PO Q12H Qty: 60 5RF magnesium hydroxide [Milk of Magnesia] 400 mg/5 mL suspension 15 ml PO BID PRN (Reason: constipation) Qty: 3000 0RF Rx Instructions: use till stooling no more than 3 days then PRN Miralax 17 gram/dose powder 17 g PO Q12H 30 Days Qty: 1020 5RF Senna-S 8.6-50 mg tablet 2 tab-cap PO BID Qty: 60 5RF Rx Instructions: 2 tablet bid prn if no BM x 3 days, QS Seroquel 200 mg tablet 200 mg PO BID@0800,2000 Qty: 60 5RF fluticasone propionate [Flonase Allergy Relief] 50 mcg/actuation spray,suspension 1 spray intranasal BID PRN (Reason: nasal congestion) Qty: 16 0RF Rx Instructions: administer into each nostril budesonide [Pulmicort] 0.5 mg/2 mL suspension for nebulization 0.5 mg inhalation BID Qty: 120 2RF ipratropium-albuterol 0.5 mg-3 mg(2.5 mg base)/3 mL solution for nebulization 3 ml inhalation Q4H PRN (Reason: shortness of breath or wheezing) Qty: 180 2RF (DME) Disposable nebulizer circuit with mask See Rx Instructions .ROUTE .MEDSUPPLY Qty: 1 2RF Rx Instructions: As directed One-A-Day 400 mcg- 25 mg tablet,chewable 1 tab PO DAILY Qty: 30 2RF chlorhexidine gluconate [Peridex] 0.12 % mouthwash 15 ml buccal BID Qty: 600 5RF trazodone 100 mg tablet 100 mg PO .HS Qty: 30 5RF Discontinued methylprednisolone [Medrol (Olvin)] 4 mg tablets,dose pack See Rx Instructions .ROUTE .COMPLEX Qty: 21 0RF Rx Instructions: orally per package directions levofloxacin 500 mg tablet 500 mg PO DAILY Qty: 7 0RF Discharge Orders: Discharge Order (Routine); Ordered 09/02/23 Ordered By: Avelino Wu Referrals: Kana Mora, [facility] [Primary Care Provider] - 4-7 days Discharge Diet: Usual diet Discharge Activity: Increase activity as tolerated Patient Instructions: Doxycycline (By mouth), Amoxicillin/Clavulanate Potassium (By mouth), Pneumonia (GEN), Opioid Safety, Pneumonia Stoplight Activity Restrictions/Additional Instructions: Regular diet with mildly thickened liquids Take all medicine as prescribed Follow-up with primary care provider 3 to 5 days Return for any concerns Discharge Attestations Time Spent in Discharge Care*: greater than 30 min Quality Metrics Clinical Quality Measures [ No reported AMI, CVA or VTE this stay] Coding Level of Care Code 51182 Total time (in minutes) for Discharge: 39 Diagnoses 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
[2023-09-02 13:28] VITALS: BP 108/71; PULSE 88; RESP 18; TEMP 36.4; O2SAT 94
== END 2023-09-02 13:29 | disposition home or self-care (01) | DRG 195 ==
LOC: ER 19:55 → MEDSURG 21:02
PROVIDERS: Family Medicine; Internal Medicine; Admitting Provider Student in an Organized Health Care Education/Training Program; Emergency Provider Internal Medicine; PCP Nurse Practitioner; Visit Provider Internal Medicine
DX: J18.9 Pneumonia, unspecified organism (principal); B97.10 Unspecified enterovirus as the cause of diseases classified elsewhere; B97.89 Other viral agents as the cause of diseases classified elsewhere; F41.9 Anxiety disorder, unspecified; Q99.2 Fragile X chromosome; G71.11 Myotonic muscular dystrophy; F70 Mild intellectual disabilities; F90.9 Attention-deficit hyperactivity disorder, unspecified type
CPT/HCPCS: 36415; 71045; 71250; 80048; 80053; 80202; 81003; 83605; 83880; 85025; 85378; 87040; 87486; 87581; 87633; 87641; 93005; 94640; 94664; 96360; 96372; 99285; J1650; J2543; J3370; J7030; J7050; J7799

== ENCOUNTER → 2023-09-03 14:00 | Outpatient (BNVA) | payer MEDICAID, SELFPAY | PROVIDERS: PCP Nurse Practitioner; Visit Provider Nurse Practitioner | DX: J18.9 Pneumonia, unspecified organism (principal) | CPT/HCPCS: 71046 ==

== ENCOUNTER → 2023-09-30 12:57 | Outpatient (BNVA) | payer MEDICAID, SELFPAY | PROVIDERS: PCP Nurse Practitioner; Visit Provider Nurse Practitioner | DX: J18.9 Pneumonia, unspecified organism (principal) | CPT/HCPCS: 71046 ==

== ENCOUNTER → 2023-10-29 12:52 | Outpatient (CLI) | payer MEDICAID, SELFPAY ==
--- NOTE | 2023-10-29 13:00 | CT_ITS ---
WS: [id number] CT chest w con* [id number] HISTORY: J18.9 - Pneumonia, unspecified organism TECHNIQUE: Axial imaging performed through the thorax. Coronal and sagittal reformats are submitted. All CT scans at [facility] use at least one of these dose optimization techniques: automated exposure control; mA and/or kV adjustment per patient size (includes targeted exams where dose is mat ched to clinical indication); or iterative reconstruction. CONTRAST: Omnipaque 350; 100 mL IV. DLP: 260.18 mGy.cm COMPARISON: 08/28/2023 Lungs and central airway: Lung volumes are decreased. Previously described LEFT lower lobe atelectasi s has nearly completely resolved. There are a few areas of very slight subsegmental atelectasis at th e LEFT lung base but much improved. No mass or pneumonia. Pleura: Normal. No pleural effusion. Heart and pericardium: Mild LEFT heart enlargement. Mediastinum and jesus: There are a few small lymph nodes with the largest at the RIGHT hilum measuring 10 mm. No adenopathy. Vessels: Mild atherosclerosis aorta. Normal size pulmonary artery. Chest wall and lower neck: No soft tissue masses. Upper abdomen: Fluid-filled stomach. No adrenal mass. Osseous structures: No destructive process. CT/CT chest w con* [id number] IMPRESSION: 1. Near complete resolution of the previously described LEFT lower lobar colla pse. Minimal subsegmental atelectasis persists. 2. No adenopathy. 3. No mass.
[2023-10-29] MEDS: iohexol 350 mg/mL 500 mL Btl (per mL) IV (13:19)
== END | disposition home or self-care (01) ==
LOC: RAD 12:53
PROVIDERS: PCP Nurse Practitioner; Visit Provider Nurse Practitioner
DX: J18.9 Pneumonia, unspecified organism (principal)
CPT/HCPCS: 71260; Q9967

== ENCOUNTER → 2023-12-03 10:11 | Outpatient (BNVA) | payer MEDICAID, SELFPAY | PROVIDERS: PCP Nurse Practitioner; Visit Provider Nurse Practitioner | DX: J98.01 Acute bronchospasm (principal) | CPT/HCPCS: 71046; 85025; 87400; 87426 ==

== ENCOUNTER → 2024-02-11 08:32 | Outpatient (BNVA) | payer OTHER, SELFPAY | PROVIDERS: PCP Nurse Practitioner; Visit Provider Nurse Practitioner | DX: Z79.899 Other long term (current) drug therapy (principal) | CPT/HCPCS: 80061; 83036 ==

== ENCOUNTER → 2024-09-04 09:38 | Outpatient (BNVA) | payer MEDICAID, SELFPAY | PROVIDERS: PCP Nurse Practitioner; Visit Provider Nurse Practitioner | DX: Z13.6 Encounter for screening for cardiovascular disorders (principal) | CPT/HCPCS: 80053; 80061; 85025 ==

== ENCOUNTER 2024-12-04 20:10 | Emergency (ER) | payer MEDICAID, SELFPAY ==
[2024-12-04 20:22] VITALS: BP 113/69; PULSE 114; RESP 16; TEMP 36.6; O2SAT 97
[2024-12-04 23:11] LABS: Hematocrit 44.4 % (37-53); Hemoglobin 14.10 g/dL (11.27-16.99); Mean Corpuscular HGB Conc 31.8 g/dL (30-55); Mean Corpuscular Hemoglobin 31.3 pg (27-33); Mean Corpuscular Volume 98.7 fl (82-101); Nucleated Red Blood Cells % 0 %; Platelet Count 163 10^3/cmm (157-399); Red Blood Count 4.50 10^6/uL (3.85-5.65); White Blood Count 5.72 10^3/uL (3.29-11.43)
[2024-12-04 23:30] LABS: Alanine Aminotransferase 24 U/L (0-41); Albumin Level 4.2 g/dL (3.5-5.2); Alkaline Phosphatase 113 U/L (40-130); Anion Gap 13.0 (5-19); Aspartate Amino Transferase 27 U/L (0-40); Blood Urea Nitrogen 13 mg/dL (6-20); Calcium 9.4 mg/dL (8.5-10.5); Carbon Dioxide 29 mmol/L (22-29); Chloride 107 mmol/L (98-107); Creatinine Clr Calc Pharmacy 131.4079; Globulin 2.8 g/dL (1.3-4.6); Glucose 97 mg/dL (65-115); Osmolality Calculated 300 mOsm/kg (285-295); Potassium 4.0 mmol/L (3.5-5.1); Sodium 145 mmol/L (136-145); Total Protein 7.0 g/dL (6.6-8.7)
[2024-12-05 01:00] VITALS: PULSE 100; RESP 16; O2SAT 96
--- NOTE | 2024-12-05 01:02 | XRR_ITS ---
PROCEDURE INFORMATION: Exam: XR Chest Exam date and time: 12/05/2024 1:05 AM Age: 34 years old Clinical indication: Shortness of breath; SOB with tachycardia; Additional info: Thinks he has pneumonia TECHNIQUE: Imaging protocol: Radiologic exam of the chest. Views: 1 view. COMPARISON: CR XR chest 2V* [id number] 12/03/2023 10:12 AM FINDINGS: Lungs: Low lung volumes. Mild bibasilar atelectasis/pneumonitis. Pleural spaces: Unremarkable. No pleural effusion. No pneumothorax. Heart/Mediastinum: Unremarkable. No cardiomegaly. Bones/joints: Unremarkable. XR/XR chest 1V portable [id number] IMPRESSION: Mild bibasilar atelectasis/pneumonitis.
--- NOTE | 2024-12-05 01:03 | W.ED.GENADLT ---
HPI - General Adult General: Chief complaint: Recheck/Abnormal Lab/Rx Stated complaint: high pulse low O2 Time Seen by Provider: 12/04/24 22:10 Source: patient and other (care staff) Mode of arrival: ambulatory Limitations: other (cognitive delay) History of Present Illness: Patient is a 34-year-old male presents to ED today [facility] care staff [facility]. History upon his initial triage was that he was tachycardic and hypoxic earlier today thus prompting his medical evaluation. Patient tells me he believes he has pneumonia although he cannot elaborate on why. He does have significant cognitive delay. Care staff states he has not been coughing or seemingly short of breath. He has not been running fevers. Care staff states he is at his mental baseline. He has not had any other recent symptoms such as vomiting. Onset (ago): hour(s) Relieving factors: none Exacerbating factors: none Associated symptoms: Reports no associated symptoms; Deny chest pain, dyspnea, malaise, palpitations, syncope or vomiting Treatments prior to arrival: none Related Data Previous Rx's ?Medication ?Instructions ?Recorded Disposable nebulizer circuit with #1 ea 04/16/24 mask acetaminophen 325 mg capsule 325 mg PO Q6H PRN pain or fever 04/16/24 #30 caps magnesium hydroxide 400 mg/5 mL 15 ml PO BID PRN constipation 04/16/24 oral suspension (Milk of Magnesia) #3,000 mL calcium carbonate (Antacid See Rx Instructions .Route 06/21/24 (calcium carbonate)) .COMPLEX #60 ea quetiapine 200 mg tablet (Seroquel) 200 mg PO TID #90 tabs 06/22/24 trazodone 100 mg tablet 100 mg PO .HS #30 tabs 06/22/24 budesonide 0.5 mg/2 mL suspension 0.5 mg (2 mL) inhalation BID #120 09/03/24 for nebulization (Pulmicort) mL chlorhexidine gluconate 0.12 % 15 ml buccal BID #600 mL 09/03/24 mouthwash (Peridex) cholecalciferol (vitamin D3) 25 1,000 unit PO DAILY #30 ea 09/03/24 mcg (1,000 unit) tablet guaifenesin 600 mg tablet, 600 mg PO Q12H #60 tabs 09/03/24 extended release 12 hr (Mucinex) polyethylene glycol 3350 17 17 g PO Q12H 30 days #1,020 grams 09/03/24 gram/dose oral powder (Miralax) vitamin no.167-folic acid 1 tab PO DAILY #30 tabs 09/03/24 400 mcg-dha 25 mg chewable tablet (One-A-Day ) sennosides 8.6 mg-docusate sodium 2 tab-cap (2 x 8.6-50 mg) PO BID 09/03/24 50 mg tablet (Senna-S) #60 tabs ipratropium 0.5 mg-albuterol 3 mg 3 ml inhalation BID shortness of 10/09/24 (2.5 mg base)/3 mL nebulization breath or wheezing #180 mL soln Lactobacillus rhamnosus GG 20 See Rx Instructions PO .2 times 10/23/24 billion cell capsule (Probiotic day #60 caps Digestive Care) Allergies Allergy/AdvReac Type Severity Reaction Status Date / Time No Known Allergies Allergy Verified 12/04/24 20:26 Review of Systems Const: Denies: fever(s), chills, body aches, fatigue or malaise Card: Denies: chest pain, palpitations, edema, syncope, pre-syncope or dyspnea on exertion Resp: Denies: dyspnea, productive cough, non-productive cough, wheezing, change in phlegm color or chest congestion GI: Denies: vomiting Musc: Denies: extremity swelling PFSH ED PFSH: Medical History Recurrent pneumonia Constipation due to slow transit Asthma Fragile X syndrome Gingiva disorder Insomnia Psychiatric care On combination antipsychotic drug therapy 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 Post-traumatic stress disorder, chronic ADHD (attention deficit hyperactivity disorder) Bed wetting Vitamin D deficiency Surgical History History of toe surgery Left great toe Family History Unknown Unknown family medical history Family history unknown by caregiver Social History Smoking and tobacco/nicotine status: never used tobacco/nicotine Second hand smoke exposure: No Alcohol intake: never Substance/Drug Use: never Adopted: No Caregiver/support person: Yes Lives independently: No Household members: caregiver Housing: House Marital status: Single Number of children: 0 Number of grandchildren: 0 Highest education level completed: High School Graduate service: No Current occupational status: disabled Current occupational exposures/hazards: No Pets and animals: Yes Pets & animals: dog(s) Leisure activites: sports, art, music, games, fishing and volunteer work Sexually active: No Do you think of yourself as: Straight/Heterosexual Current gender identity: Male Special imer needs: No Physical Exam Const: COMMON NORMALS: no acute distress, average body habitus, healthy appearing, alert and well nourished GENERAL APPEARANCE: cooperative OTHER: Cognitive delay HENMT: COMMON NORMALS: normocephalic and atraumatic HEAD & SCALP: normal to inspection, normocephalic and atraumatic Resp: COMMON NORMALS: normal respiratory effort and clear to auscultation bilaterally AUSCULTATION: clear to auscultation bilaterally Cardio: COMMON NORMALS: regular rate and regular rhythm RATE: regular rate RHYTHM: regular rhythm GI: COMMON NORMALS: Normal to inspection, nondistended, normoactive bowel sounds present, Soft to palpation and non-tender PALPATION: Yes Soft to palpation Extremity: COMMON NORMALS: capillary refill normal, no clubbing, cyanosis or edema, no calf tenderness and no pedal edema GENERAL: Yes normal exam except as noted Neuro: SENSORIUM/ORIENTATION: Yes alert Course Vital Signs: Vital signs: Vital Signs Temperature 97.9 F 12/04/24 20:22 Pulse Rate 100 12/05/24 01:00 Respiratory Rate 16 12/05/24 01:00 Blood Pressure 113/69 12/04/24 20:22 Pulse Oximetry 96 12/05/24 01:00 Oxygen Delivery Me thod Room Air 12/05/24 01:00 [facility] - General Adult Medical Decision Making Patient clinically appears in absolutely no acute distress. He is not tachycardic or hypoxic during my examination. CXR showing no acute findings and no obvious changes from previous. He does have some mild atelectasis. Blood work obtained from triage is unremarkable. White count is normal. Patient will be allowed discharge with recommendations to follow-up with provider through his [facility]. Medical Records I reviewed the patient's medical records. Lab Data I reviewed the patient's lab results. 12/04/24 23:02 12/04/24 23:02 Radiology Impressions Chest X-Ray 12/05/24 01:02 IMPRESSION: Mild bibasilar atelectasis/pneumonitis. Laboratory Results WBC 5.72 10^3/uL (3.29-11.43) 12/04/24 23:02 RBC 4.50 10^6/uL (3.85-5.65) 12/04/24 23:02 Hgb 14.10 g/dL (11.27-16.99) 12/04/24 23:02 Hct 44.4 % (37-53) 12/04/24 23:02 MCV 98.7 fl (82-101) 12/04/24 23:02 MCH 31.3 pg (27-33) 12/04/24 23:02 MCHC 31.8 g/dL (30-55) 12/04/24 23:02 RDW 12.7 % (12.1-15.1) 12/04/24 23:02 Plt Count 163 10^3/cmm (157-399) 12/04/24 23:02 MPV 10.3 fL (7.4-10.4) 12/04/24 23:02 Neut % (Auto) 67.9 % 12/04/24 23:02 Lymph % (Auto) 22.6 % 12/04/24 23:02 [place] % (Auto) 8.0 % 12/04/24 23:02 Eos % (Auto) 0.7 % 12/04/24 23:02 Baso % (Auto) 0.5 % 12/04/24 23:02 Neut # (Auto) 3.88 10^3/uL (1.8-7.7) 12/04/24 23:02 Lymph # (Auto) 1.3 10^3/uL (0.8-4.8) 12/04/24 23:02 [place] # (Auto) 0.5 10^3/uL (0.2-0.9) 12/04/24 23:02 Eos # (Auto) 0.0 10^3/uL (0.0-0.8) 12/04/24 23:02 Baso # (Auto) 0.0 10^3/uL (0.0-0.1) 12/04/24 23:02 Nucleated RBC % (auto) 0 % 12/04/24 23:02 Nucleated RBCs # 0.0 /100WBC 12/04/24 23:02 Sodium 145 mmol/L (136-145) 12/04/24 23:02 Potassium 4.0 mmol/L (3.5-5.1) 12/04/24 23:02 Chloride 107 mmol/L (98-107) 12/04/24 23:02 Carbon Dioxide 29 mmol/L (22-29) 12/04/24 23:02 Anion Gap 13.0 (5-19) 12/04/24 23:02 BUN 13 mg/dL (6-20) 12/04/24 23:02 Creatinine 0.8 mg/dL (0.7-1.2) 12/04/24 23:02 GFR Calculation 111.3 mL/min (90-130) 12/04/24 23:02 Glucose 97 mg/dL (65-115) 12/04/24 23:02 Calculated Osmolality 300 mOsm/kg (285-295) H 12/04/24 23:02 Calcium 9.4 mg/dL (8.5-10.5) 12/04/24 23:02 Total Bilirubin 0.3 mg/dL (0.15-1.2) 12/04/24 23:02 AST 27 U/L (0-40) 12/04/24 23:02 ALT 24 U/L (0-41) 12/04/24 23:02 Alkaline Phosphatase 113 U/L (40-130) 12/04/24 23:02 Total Protein 7.0 g/dL (6.6-8.7) 12/04/24 23:02 Albumin 4.2 g/dL (3.5-5.2) 12/04/24 23:02 Globulin 2.8 g/dL (1.3-4.6) 12/04/24 23:02 XR interpretation done by ED provider, pending radiology final review Discharge Plan Discharge Patient Disposition: Home Clinical Impression: Normal examination of heart and lungs Condition: Stable Prescriptions: No Action (DME) Disposable nebulizer circuit with mask See Rx Instructions .ROUTE .MEDSUPPLY Qty: 1 2RF Rx Instructions: As directed acetaminophen 325 mg capsule 325 mg PO Q6H PRN (Reason: pain or fever) Qty: 30 0RF magnesium hydroxide [Milk of Magnesia] 400 mg/5 mL suspension 15 ml PO BID PRN (Reason: constipation) Qty: 3000 0RF Rx Instructions: use till stooling no more than 3 days then PRN Seroquel 200 mg tablet 200 mg PO TID Qty: 90 5RF trazodone 100 mg tablet 100 mg PO .HS Qty: 30 5RF budesonide [Pulmicort] 0.5 mg/2 mL suspension for nebulization 0.5 mg inhalation BID Qty: 120 5RF chlorhexidine gluconate [Peridex] 0.12 % mouthwash 15 ml buccal BID Qty: 600 5RF cholecalciferol (vitamin D3) 25 mcg (1,000 unit) tablet 1,000 unit PO DAILY Qty: 30 5RF guaifenesin [Mucinex] 600 mg tablet extended release 12hr 600 mg PO Q12H Qty: 60 5RF Miralax 17 gram/dose powder 17 g PO Q12H 30 Days Qty: 1020 5RF One-A-Day 400 mcg- 25 mg tablet,chewable 1 tab PO DAILY Qty: 30 5RF Senna-S 8.6-50 mg tablet 2 tab-cap PO BID Qty: 60 5RF Rx Instructions: 2 tablet bid prn if no BM x 3 days, QS Antacid (calcium carbonate) 200 mg calcium (500 mg) tablet,chewable See Rx Instructions .ROUTE .COMPLEX Qty: 60 5RF Dose Instruction: chew AND swallow TWO tablets BY MOUTH DAILY Rx Instructions: chew AND swallow TWO tablets BY MOUTH DAILY ipratropium-albuterol 0.5 mg-3 mg(2.5 mg base)/3 mL solution for nebulization 3 ml inhalation BID Qty: 180 5RF Probiotic Digestive Care 20 billion cell capsule See Rx Instructions PO .2 times day Qty: 60 2RF Rx Instructions: 20 billion cell PO .2 times day; Discharge Orders: Discharge ED (Routine); Ordered 12/05/24 Ordered By: Lisa Soto Referrals: Kana Mora, AUTOMOBILE BODY REPAIRERAngel LuisC [Primary Care Provider, Family Practice] Patient Instructions: Patient Portal & [place]ier Instructions Activity Restrictions/Additional Instructions: As we discussed, I do not visualize any pneumonia on his chest x-ray. His heart rate and oxygen saturation has been normal during his emergency department stay. Patient is cleared for discharge from an emergency standpoint. Recommend he follow-up with primary care next week for reevaluation. Print Language: Portuguese Coding Level of Care Code ED Leather Repairer for Erika Alvarez
[2024-12-05 02:14] VITALS: BP 108/75; PULSE 83; O2SAT 95
== END 2024-12-05 02:16 | disposition home or self-care (01) ==
PROVIDERS: Emergency Medicine; Emergency Provider Physician Assistant; PCP Nurse Practitioner
DX: Z00.00 Encounter for general adult medical examination without abnormal findings (principal)
CPT/HCPCS: 36415; 71045; 80053; 85025; 99284

== ENCOUNTER → 2024-12-08 09:54 | Outpatient (BNVA) | payer MEDICAID, SELFPAY | PROVIDERS: PCP Nurse Practitioner; Visit Provider Podiatrist Foot & Ankle Surgery | DX: Q66.92 Congenital deformity of feet, unspecified, left foot (principal); Q66.221 Congenital metatarsus adductus, right foot; Q66.222 Congenital metatarsus adductus, left foot; Q66.91 Congenital deformity of feet, unspecified, right foot | CPT/HCPCS: 73630; 99203 ==

== ENCOUNTER → 2025-01-21 13:22 | Outpatient (BNVA) | payer MEDICAID, SELFPAY | PROVIDERS: PCP Nurse Practitioner; Visit Provider Nurse Practitioner | DX: R05.9 Cough, unspecified (principal); J98.11 Atelectasis; R94.2 Abnormal results of pulmonary function studies | CPT/HCPCS: 71046 ==

== ENCOUNTER → 2025-04-14 13:57 | Outpatient (BNVA) | payer MEDICAID, SELFPAY | PROVIDERS: PCP Nurse Practitioner; Visit Provider Nurse Practitioner | DX: E55.9 Vitamin D deficiency, unspecified (principal) | CPT/HCPCS: 80053 ==